=== PATIENT | male | born 1945 | race Caucasian/White ===

== ENCOUNTER 2016-05-18 21:02 | Emergency (ER) | payer OTHER, MEDICAID ==
--- NOTE | 2016-05-18 21:13 | EDPHY ---
H & P Time Seen by Provider: 05/18/16 21:11 HPI/ROS: Chief complaint. Fall HPI. 70-year-old male I with fall 2 days ago here by EMS. Now wants it to be checked out. The patient was apparently struggling with police during arrest in sustain an abrasion to the top of his head. He denies loss of consciousness neck pain any other injuries. He has been released from longterm. He does not have a place to go. We have offered to help him get into the half-way tonight however he refuses. The patient is not on blood thinners. ROS Constitutional. no fever/chills, no weakness Eyes. no problems with vision ENT. no sore throat, no nasal drainage Cardiovascular. no chest pain Respiratory. no shortness of breath, no cough Abdominal. no abdominal pain, no nausea/vomiting, no diarrhea . no problems urinating MS. no calf pain/swelling, no neck/back pain, no joint pain Skin. Abrasions to the top of his head Lymph. no swollen glands Neuro. no headache, no dizziness, no difficulty walking or with speech Past Medical/Surgical History: Parkinson's disease, orthostatic hypotension, syncope Social History: Single, daily smoker, no alcohol Smoking Status: Current some day smoker Physical Exam: General Appearance: Alert well-developed male no distress vital signs are stable Eyes: Pupils equal and round no pallor or injection. ENT, no hemotympanum or Casarez sign. No oral pharyngeal or dental trauma. No septal hematoma Respiratory: There are no retractions, lungs are clear to auscultation. Cardiovascular: Regular rate and rhythm. Gastrointestinal: Abdomen is soft and nontender, no masses, bowel sounds normal. Neurological: Awake and alert, sensory and motor exams grossly normal. Skin: Abrasion to the top of his head that does not appear to be infected Musculoskeletal: Neck is supple nontender. Extremities symmetrical, full range of motion. Psychiatric: Patient is oriented X 3, there is no agitation. Constitutional: Initial Vital Signs Temperature (C) 36.8 C 05/18/16 21:02 Heart Rate 86 05/18/16 21:02 Respiratory Rate 16 05/18/16 21:02 Blood Pressure 125/83 H 05/18/16 21:02 O2 Sat (%) 94 05/18/16 21:02 O2 Delivery Mode Room Air Allergies/Adverse Reactions: No Known Allergies Allergy (Verified 05/18/16 21:23) Home Medications: Medication Instructions Recorded Carbidopa/Levodopa 25/100Mg 2 tab PO QID 08/11/15 [Sinemet 25/100 MG (*)] Entacapone 05/18/16 Selegiline 05/18/16 Medical Decision Making ED Course/Re-evaluation: Patient remained stable though somewhat agitated. Again we have tried multiple times to encouraged the patient to let us get him to the homeless half-way. He refuses an wants to be discharged to the street. He become somewhat agitated does not want stay in the room. Security is watching the patient. He is placed on a detained or while he is in the emergency department. Differential Diagnosis: This appears to be a superficial abrasion. No evidence for concussion or closed head injury or skull fracture. He is not on blood thinners. He is alert oriented conversational. Departure - Departure Disposition: Home, Routine, Self-Care Clinical Impression: Parkinson disease, Aggressive behavior Abrasion head Qualifiers: Encounter type: initial encounter Qualified Code(s): S00.91XA - Abrasion of unspecified part of head, initial encounter Condition: Good Instructions: Abrasion (ED) Additional Instructions: Continue regular your regular medications. Return for worsening symptoms. Follow up with your regular physician on Saturday. Return over the weekend for any worsening symptoms. If you do not have a physician in [place] I will give you the name of a physician for follow-up Referrals: Patient,NotPresent [Unknown] - As per Instructions [facility],. [Clinic] - 2-3 days without fail
[2016-05-18 21:27] VITALS: RESP 16
[2016-05-18 23:52] VITALS: BP 114/74; PULSE 80; TEMP 97.9; O2SAT 96
== END 2016-05-18 23:51 | disposition home or self-care (01) ==
LOC: EDUNIT#
DX: S00.91XA Abrasion of unspecified part of head, initial encounter (principal); F91.9 Conduct disorder, unspecified; G20 Parkinson's disease; F17.200 Nicotine dependence, unspecified, uncomplicated; W18.39XA Other fall on same level, initial encounter

== ENCOUNTER 2016-11-16 22:22 | Inpatient (IN) | payer OTHER, MEDICAID ==
--- NOTE | 2016-11-16 22:25 | EDPHY ---
H & P Time Seen by Provider: 11/16/16 22:24 HPI/ROS: HPI The patient presents brought in by ambulance by paramedics on an M1 hold for inability to care for self. He he was released from care home just today and was accepted at [facility] for placement. However when he arrived at [facility], the staff there was unable to care for his medical needs, thus he was transferred here. As he is wheelchair bound with a history of Parkinson's and recently had an operation of his cervical spine at [facility]. He denies any acute complaints. REVIEW OF SYSTEMS Constitutional: No fever, no chills. Eyes: No discharge. ENT: No sore throat. Cardiovascular: No chest pain, no palpitations. Respiratory: No cough, no shortness of breath. Gastrointestinal: No abdominal pain, no vomiting. Genitourinary: No hematuria. Musculoskeletal: No back pain. Skin: No rashes. Neurological: No headache. PMHx: Parkinson's disease, postural hypotension, history of opiate use Soc Hx: Homeless, recently incarcerated, he lives at [facility] PHYSICAL General Appearance: Alert, no distress Eyes: Pupils equal and round no pallor or injection ENT, Mouth: Mucous membranes moist Respiratory: There are no retractions, lungs are clear to auscultation Cardiovascular: Regular rate and rhythm Gastrointestinal: Abdomen is soft and non-tender, no masses, bowel sounds normal Neurological: A&O, moves all extremities Skin: Warm and dry, no rashes Musculoskeletal: Neck is supple non tender Extremities: symmetrical, full range of motion Psychiatric: Patient is oriented X 3, there is no agitation Source: Patient, EMS Exam Limitations: No limitations Constitutional: Initial Vital Signs Temperature (C) 37.0 C 11/16/16 22:25 Heart Rate 92 11/16/16 22:25 Respiratory Rate 18 11/16/16 22:25 Blood Pressure 153/94 H 11/16/16 22:25 O2 Sat (%) 95 11/16/16 22:25 O2 Delivery Mode Room Air Allergies/Adverse Reactions: quetiapine [From Seroquel] Allergy (Verified 11/16/16 22:36) Home Medications: Medication Instructions Recorded Carbidopa/Levodopa 25/100Mg 2 tab PO QID 08/11/15 [Sinemet 25/100 MG (*)] Entacapone 05/18/16 Selegiline 05/18/16 Carbidopa/Levodopa 25/100Mg 1 tab PO TID 11/16/16 [Sinemet 25/100 MG (*)] Dicyclomine [Bentyl 10 MG (*)] 10 mg PO QID 11/16/16 Entacapone [Comtan 200 MG (RX)] 200 mg PO 11/16/16 FOLIC ACID 0.4 mg PO 11/16/16 Selegiline HCl 5 mg PO 11/16/16 Medical Decision Making Differential Diagnosis: This is a 71-year-old male with Parkinson's disease on multiple medications, recently released from care home to [facility] and now presents here because of difficulty taking care of him there. He is in a wheelchair and is on multiple medications. He has previously been at other nursing homes in the area. He denies any acute complaints. Differential diagnosis includes Parkinson's disease, alcohol intoxication, alcohol withdrawal. In the emergency department, the patient was monitored. Basic labs were checked and were all unremarkable. He will need to be placed, likely at a chcf facility. I discussed the case with Dr. Mclean who will admit the patient to the hospital. - Data Points Laboratory Results: Laboratory Results 11/16/16 23:56 11/16/16 23:56 11/16/16 11/16/16 11/16/16 23:56 23:56 23:40 WBC 9.37 10^3/uL 10^3/uL (3.80-9.50) RBC 4.50 10^6/uL 10^6/uL (4.40-6.38) Hgb 13.7 g/dL g/dL (13.7-17.5) Hct 42.9 % % (40.0-51.0) MCV 95.3 fL fL (81.5-99.8) MCH 30.4 pg pg (27.9-34.1) MCHC 31.9 g/dL L g/dL (32.4-36.7) RDW 13.9 % % (11.5-15.2) Plt Count 182 10^3/uL 10^3/uL (150-400) MPV 9.9 fL fL (8.7-11.7) Neut % (Auto) 68.5 % % (39.3-74.2) Lymph % (Auto) 23.5 % % (15.0-45.0) [place] % (Auto) 6.4 % % (4.5-13.0) Eos % (Auto) 1.1 % % (0.6-7.6) Baso % (Auto) 0.2 % L % (0.3-1.7) Nucleat RBC Rel Count 0.0 % % (0.0-0.2) Absolute Neuts (auto) 6.42 10^3/uL 10^3/uL (1.70-6.50) Absolute Lymphs (auto) 2.20 10^3/uL 10^3/uL (1.00-3.00) Absolute Monos (auto) 0.60 10^3/uL 10^3/uL (0.30-0.80) Absolute Eos (auto) 0.10 10^3/uL 10^3/uL (0.03-0.40) Absolute Basos (auto) 0.02 10^3/uL 10^3/uL (0.02-0.10) Absolute Nucleated RBC 0.00 10^3/uL 10^3/uL (0-0.01) Immature Gran % 0.3 % % (0.0-1.1) Immature Gran # 0.03 10^3/uL 10^3/uL (0.00-0.10) Sodium 144 mEq/L mEq/L (134-144) Potassium 5.2 mEq/L mEq/L (3.5-5.2) Chloride 106 mEq/L mEq/L (97-110) Carbon Dioxide 26 mEq/l mEq/l (22-31) Anion Gap 12 mEq/L mEq/L (8-16) BUN 22 mg/dL mg/dL (7-23) Creatinine 0.8 mg/dL mg/dL (0.7-1.3) Estimated GFR > 60 Glucose 110 mg/dL H mg/dL (70-100) Calcium 9.8 mg/dL mg/dL (8.5-10.4) Total Bilirubin 1.0 mg/dL mg/dL (0.1-1.4) AST 30 IU/L IU/L (17-59) ALT 10 IU/L L IU/L (21-72) Alkaline Phosphatase 43 IU/L IU/L (38-126) Total Protein 8.0 g/dL g/dL (6.3-8.2) Albumin 4.2 g/dL g/dL (3.5-5.0) Specimen Hemolysis 141 Urine Color YELLOW Urine Appearance CLEAR Urine pH 6.0 (5.0-7.5) Ur Specific [place] 1.026 (1.002-1.030) Urine Protein NEGATIVE (NEGATIVE) Urine Ketones NEGATIVE (NEGATIVE) Urine Blood NEGATIVE (NEGATIVE) Urine Nitrate NEGATIVE (NEGATIVE) Urine Bilirubin NEGATIVE (NEGATIVE) Urine Urobilinogen NEGATIVE EU EU (0.2-1.0) Ur Leukocyte Esterase NEGATIVE (NEGATIVE) Urine Glucose NEGATIVE (NEGATIVE) Urine Opiates Screen Urine Barbiturates Ur Phencyclidine Scrn Ur Amphetamine Screen U Benzodiazepines Scrn Urine Cocaine Screen U Marijuana (THC) Screen Ethyl Alcohol < 10 mg/dL mg/dL (0-10) 11/16/16 23:40 WBC RBC Hgb Hct MCV MCH MCHC RDW Plt Count MPV Neut % (Auto) Lymph % (Auto) [place] % (Auto) Eos % (Auto) Baso % (Auto) Nucleat RBC Rel Count Absolute Neuts (auto) Absolute Lymphs (auto) Absolute Monos (auto) Absolute Eos (auto) Absolute Basos (auto) Absolute Nucleated RBC Immature Gran % Immature Gran # Sodium Potassium Chloride Carbon Dioxide Anion Gap BUN Creatinine Estimated GFR Glucose Calcium Total Bilirubin AST ALT Alkaline Phosphatase Total Protein Albumin Specimen Hemolysis Urine Color Urine Appearance Urine pH Ur Specific [place] Urine Protein Urine Ketones Urine Blood Urine Nitrate Urine Bilirubin Urine Urobilinogen Ur Leukocyte Esterase Urine Glucose Urine Opiates Screen NEGATIVE (NEGATIVE) Urine Barbiturates NEGATIVE (NEGATIVE) Ur Phencyclidine Scrn NEGATIVE (NEGATIVE) Ur Amphetamine Screen NEGATIVE (NEGATIVE) U Benzodiazepines Scrn NEGATIVE (NEGATIVE) Urine Cocaine Screen NEGATIVE (NEGATIVE) U Marijuana (THC) Screen NEGATIVE (NEGATIVE) Ethyl Alcohol Medications Given: Carbidopa/Levodopa (Sinemet) 1.5 tab PO TID MARYJO Stop: 05/16/17 08:59 Last Admin: 11/16/16 23:02 Dose: 1.5 tab Entacapone (Comtan) 200 mg PO TID MARYJO Stop: 05/16/17 08:59 Last Admin: 11/16/16 23:02 Dose: 200 mg Discontinued Medications Dicyclomine HCl (Bentyl) 10 mg PO EDNOW ONE Stop: 11/16/16 23:00 Last Admin: 11/16/16 23:02 Dose: 10 mg Folic Acid (Folic Acid) 1 mg PO EDNOW ONE Stop: 11/16/16 23:00 Last Admin: 11/16/16 23:03 Dose: 1 mg Departure - Departure Disposition: [facility] Inpatient Acute Clinical Impression: Parkinson disease Condition: Fair
[2016-11-16] MEDS ORDERED: FOLIC ACID 1 MG TAB PO ONE (22:59)
[2016-11-16] MEDS ORDERED: DICYCLOMINE 10 MG CAP PO ONE (22:59)
[2016-11-16] MEDS: ENTACAPONE 200 MG TAB PO SCH (23:02)
[2016-11-17 00:04] LABS: % IMMATURE GRANULYOCYTES 0.3 % (0.0-1.1); ABSOLUTE IMMATURE GRANULOCYTES 0.03 10^3/uL (0.00-0.10); ADD DIFF? NO; ADD MORPH? NO; ADD SCAN? NO; ATYPICAL LYMPHOCYTE FLAG 0 (0-99); FRAGMENT RBC FLAG 0 (0-99); HEMATOCRIT 42.9 % (40.0-51.0); HEMOGLOBIN 13.7 g/dL (13.7-17.5); LEFT SHIFT FLG 0 (0-99); LIPEMIA HEMOLYSIS FLAG 80 (0-99); MEAN CELL HEMOGLOBIN 30.4 pg (27.9-34.1); MEAN CELL HEMOGLOBIN CONCENTR. 31.9 g/dL (32.4-36.7); MEAN CELL VOLUME 95.3 fL (81.5-99.8); MEAN PLATELET VOLUME 9.9 fL (8.7-11.7); PLATELET CLUMPS FLAG 0 (0-99); PLATELET COUNT 182 10^3/uL (150-400); RED CELL DISTRIBUTION WIDTH 13.9 % (11.5-15.2)
[2016-11-17 00:21] LABS: ALANINE AMINOTRANSFERASE 10 IU/L (21-72); ALBUMIN 4.2 g/dL (3.5-5.0); ALKALINE PHOSPHATASE 43 IU/L (38-126); ANION GAP 12 mEq/L (8-16); ASPARTATE AMINOTRANSFERASE 30 IU/L (17-59); CALCIUM 9.8 mg/dL (8.5-10.4); CARBON DIOXIDE 26 mEq/l (22-31); CHLORIDE 106 mEq/L (97-110); CREATININE 0.8 mg/dL (0.7-1.3); ETHANOL SERUM < 10 mg/dL (0-10); GLOMERULAR FILTRATION RATE > 60; GLUCOSE 110 mg/dL (70-100); POTASSIUM 5.2 mEq/L (3.5-5.2); SODIUM 144 mEq/L (134-144); SPECIMEN HEMOLYSIS 141
[2016-11-17 00:48] LABS: COLOR YELLOW; LEUKOCYTE ESTERASE,URINE NEGATIVE (NEGATIVE); NITRITE,URINE NEGATIVE (NEGATIVE)
[2016-11-17] MEDS ORDERED: ONDANSETRON DISINTEGRATING 4 MG TAB PO PRN (05:04)
[2016-11-17] MEDS ORDERED: PROMETHAZINE HCL 25 MG/ML INJ IVP PRN (05:04)
[2016-11-17] MEDS ORDERED: ONDANSETRON 4 MG/2 ML VIAL IVP PRN (05:04)
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
[2016-11-17] MEDS: DICYCLOMINE 10 MG CAP PO SCH ×4 (05:49→21:56)
[2016-11-17] MEDS ORDERED: CARBIDOPA/LEVODOPA 25 MG/100 MG TAB PO SCH ×2 (09:00)
[2016-11-17] MEDS: ENOXAPARIN 40 MG/0.4 ML SYR SC SCH ×2 (09:54→09:58)
[2016-11-17] MEDS: ENTACAPONE 200 MG TAB PO SCH ×3 (09:54→21:56)
[2016-11-17] MEDS: CARBIDOPA/LEVODOPA 25 MG/100 MG TAB PO SCH ×2 (16:03→18:21)
[2016-11-17] MEDS: SELEGILINE HCL 5 MG CAP PO SCH (16:07)
[2016-11-17] MEDS: QUEtiapine FUMARATE 25 MG TAB PO SCH (16:09)
--- NOTE | 2016-11-17 16:38 | HOSPPROG ---
Hospitalist Progress Note Assessment/Plan: DIAGNOSES: -Personality disorder, with intermittent aggressive behaviors ( diagnosis based on multiple previous psychiatric evaluations done elsewhere ) -advanced Parkinson's disease -orthostatic hypotension likely related Parkinson's disease -Chronic pain, probably related to Parkinson's disease -Inability to maintain a place of living complicated by difficulty caring for himself This patient's situation is quite difficult from a social standpoint as he is not really able to care for himself for well but has not been able to maintain a living situation in nursing facilities or care homes. I have spoken to our Case Management group about his situation and they are going to begin to look into options for how we can try and set him up for better success that he has had recently as outlined by Dr. Collado's admission note today SUBJECTIVE: Says he feels okay, he is bothered by his tremor but it is no worse than usual No other symptoms of acute illness OBJECTIVE Vitals reviewed: stable without fever Exam: alert oriented tremor and hypophonia typical of parkinsonism are present and he is really quite debilitated by his Parkinson's in terms of mobility skin warm dry color ok resps not labored lungs clear BSs heart regular abd soft nondistended nontender, bowel sounds present limbs warm, no edema iv site ok Objective: Vital Signs Temp Pulse Resp BP Pulse Ox 36.9 C 85 18 130/81 H 94 11/17/16 15:44 11/17/16 15:44 11/17/16 15:44 11/17/16 15:44 11/17/16 15:44 ICD10 Worksheet Patient Problems: Problems Problem Status Onset Parkinson disease Acute Aggressive behavior Acute
[2016-11-17] MEDS: VENLAFAXINE XR 150 MG CAP PO SCH (21:55)
[2016-11-18] MEDS: CARBIDOPA/LEVODOPA 25 MG/100 MG TAB PO SCH ×4 (06:00→20:31)
[2016-11-18] MEDS: ENTACAPONE 200 MG TAB PO SCH ×3 (06:08→20:38)
[2016-11-18] MEDS: ACETAMINOPHEN 325 MG TAB PO PRN ×2 (06:10→20:33)
[2016-11-18] MEDS: oxyCODONE IR 5 MG TAB PO PRN ×3 (06:11→20:33)
[2016-11-18] MEDS: SELEGILINE HCL 5 MG CAP PO SCH (09:37)
[2016-11-18] MEDS: DICYCLOMINE 10 MG CAP PO SCH ×3 (09:37→20:38)
[2016-11-18] MEDS: FOLIC ACID 1 MG TAB PO SCH (09:37)
[2016-11-18] MEDS: VENLAFAXINE XR 75 MG CAP PO SCH (09:37)
[2016-11-18] MEDS: QUEtiapine FUMARATE 25 MG TAB PO SCH (09:38)
[2016-11-18] MEDS: ENOXAPARIN 40 MG/0.4 ML SYR SC SCH (09:40)
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
--- NOTE | 2016-11-18 16:06 | HOSPPROG ---
Hospitalist Progress Note Assessment/Plan: DIAGNOSES: -Personality disorder, with intermittent aggressive behaviors ( diagnosis based on multiple previous psychiatric evaluations done elsewhere ) -advanced Parkinson's disease -orthostatic hypotension likely related Parkinson's disease -decubitus ulcer, POA, (he is currently not accepting nursing care for this ulcer here) -Chronic pain, probably related to Parkinson's disease -Inability to maintain a place of living complicated by difficulty caring for himself This patient's situation is quite difficult from a social standpoint as he is not really able to care for himself for well but has not been able to maintain a living situation in nursing facilities or care homes. I have spoken to our Case Management group about his situation and they are going to begin to look into options for how we can try and set him up for better success that he has had recently as outlined by Dr. Collado's admission note today I have asked pharamcy to try to find the medication/dose for his parkinsons med SUBJECTIVE: Overall feels ok but states he normally takes a long acting carbi/levodopa at HS which was not on his reconciled list at admission, and says tremor not as well controlled due to this OBJECTIVE Vitals reviewed: stable without fever Exam: alert oriented tremor and hypophonia typical of parkinsonism are present and he is really quite debilitated by his Parkinson's in terms of mobility skin warm dry color ok resps not labored lungs clear BSs heart regular abd soft nondistended nontender, bowel sounds present limbs warm, no edema iv site ok Objective: Vital Signs Temp Pulse Resp BP Pulse Ox 36.6 C 85 16 103/63 94 11/18/16 15:42 11/18/16 15:42 11/18/16 15:42 11/18/16 15:42 11/18/16 15:42 11/17/16 11/18/16 11/19/16 06:59 06:59 06:59 Intake Total 550 Output Total 500 100 Balance 50 -100 ICD10 Worksheet Patient Problems: Problems Problem Status Onset Parkinson disease Acute Aggressive behavior Acute
[2016-11-18] MEDS: VENLAFAXINE XR 150 MG CAP PO SCH (20:33)
[2016-11-18] MEDS: CARBIDOPA/LEVO CR 50 MG/200 MG TAB PO SCH (22:59)
[2016-11-19] MEDS: ACETAMINOPHEN 325 MG TAB PO PRN ×3 (06:15→18:01)
[2016-11-19] MEDS: CARBIDOPA/LEVODOPA 25 MG/100 MG TAB PO SCH ×4 (06:16→19:45)
[2016-11-19] MEDS: oxyCODONE IR 5 MG TAB PO PRN ×4 (06:16→21:04)
[2016-11-19] MEDS: ENTACAPONE 200 MG TAB PO SCH ×3 (06:16→21:04)
[2016-11-19] MEDS: DICYCLOMINE 10 MG CAP PO SCH ×3 (09:00→21:03)
[2016-11-19] MEDS: QUEtiapine FUMARATE 25 MG TAB PO SCH ×2 (09:00→09:03)
[2016-11-19] MEDS: FOLIC ACID 1 MG TAB PO SCH (09:00)
[2016-11-19] MEDS: VENLAFAXINE XR 75 MG CAP PO SCH ×4 (09:00→09:06)
[2016-11-19] MEDS: SELEGILINE HCL 5 MG CAP PO SCH (09:00)
[2016-11-19] MEDS: ENOXAPARIN 40 MG/0.4 ML SYR SC SCH (09:07)
--- NOTE | 2016-11-19 18:29 | HOSPPROG ---
Hospitalist Progress Note Assessment/Plan: DIAGNOSES: -Personality disorder, with intermittent aggressive behaviors ( diagnosis based on multiple previous psychiatric evaluations done elsewhere ) -we have had no sign of any agitated or aggressive behavior here. My guess is that as his speech is very hard to understand, staff elsewhere get frustrated leading to him getting frustrated and he is not able to manage the frustration?? -advanced Parkinson's disease -orthostatic hypotension likely related Parkinson's disease -decubitus ulcer, POA, (he is currently not accepting nursing care for this ulcer here) -Chronic pain, probably related to Parkinson's disease -Inability to maintain a place of living complicated by difficulty caring for himself This patient's situation is quite difficult from a social standpoint as he is not really able to care for himself for well but has not been able to maintain a living situation in nursing facilities or care homes. I have spoken to our Case Management group about his situation and they are going to begin to look into options for how we can try and set him up for better success that he has had recently as outlined by Dr. Power's admission note today SUBJECTIVE: Feels well today, no pain or other acute symptoms OBJECTIVE Vitals reviewed: stable without fever Exam: alert oriented tremor and hypophonia typical of parkinsonism are present and he is really quite debilitated by his Parkinson's in terms of mobility skin warm dry color ok resps not labored lungs clear BSs heart regular abd soft nondistended nontender, bowel sounds present limbs warm, no edema iv site ok Objective: Vital Signs Temp Pulse Resp BP Pulse Ox 36.3 C 72 14 117/71 93 11/19/16 16:00 11/19/16 16:00 11/19/16 16:00 11/19/16 16:00 11/19/16 16:00 11/18/16 11/19/16 11/20/16 06:59 06:59 06:59 Intake Total 550 500 250 Output Total 500 800 350 Balance 50 -300 -100 ICD10 Worksheet Patient Problems: Problems Problem Status Onset Parkinson disease Acute Aggressive behavior Acute
[2016-11-19] MEDS: VENLAFAXINE XR 150 MG CAP PO SCH (21:03)
[2016-11-19] MEDS: CARBIDOPA/LEVO CR 50 MG/200 MG TAB PO SCH (22:33)
[2016-11-20] MEDS: oxyCODONE IR 5 MG TAB PO PRN ×6 (02:49→22:10)
[2016-11-20] MEDS: ACETAMINOPHEN 325 MG TAB PO PRN (02:53)
[2016-11-20] MEDS: QUEtiapine FUMARATE 25 MG TAB PO SCH (07:27)
[2016-11-20] MEDS: ENTACAPONE 200 MG TAB PO SCH ×3 (07:27→22:03)
[2016-11-20] MEDS: CARBIDOPA/LEVODOPA 25 MG/100 MG TAB PO SCH ×4 (07:28→19:01)
[2016-11-20] MEDS: VENLAFAXINE XR 75 MG CAP PO SCH ×2 (07:28→07:30)
[2016-11-20] MEDS: SELEGILINE HCL 5 MG CAP PO SCH (07:29)
[2016-11-20] MEDS: FOLIC ACID 1 MG TAB PO SCH (07:29)
[2016-11-20] MEDS: DICYCLOMINE 10 MG CAP PO SCH ×3 (07:30→22:02)
[2016-11-20] MEDS: ENOXAPARIN 40 MG/0.4 ML SYR SC SCH (07:30)
--- NOTE | 2016-11-20 11:56 | ASMTCMCOM ---
CM Note CM Note Notes: Added information re: patient's aggressive behaviors to the [facility] for review by BRENDEN Harper. Noted we have not seen the behaviors here and the trigger for them may be frustration with communication. JALEESA is pursuing SNF placement at this time. Several referrals have been made. Awaiting response from facilities. JALEESA w/f. Date Signed: 11/20/2016 11:12 AM Electronically Signed By:Porsha Harris
--- NOTE | 2016-11-20 12:24 | HOSPPROG ---
Hospitalist Progress Note Assessment/Plan: -Personality disorder, with intermittent aggressive behaviors ( diagnosis based on multiple previous psychiatric evaluations done elsewhere ) -we have had no sign of any agitated or aggressive behavior here. My guess is that as his speech is very hard to understand, staff elsewhere get frustrated leading to him getting frustrated and he is not able to manage the frustration?? -advanced Parkinson's disease -orthostatic hypotension likely related Parkinson's disease -decubitus ulcer, POA, (he is currently not accepting nursing care for this ulcer here) -Chronic pain, probably related to Parkinson's disease -Inability to maintain a place of living complicated by difficulty caring for himself This patient's situation is quite difficult from a social standpoint as he is not really able to care for himself for well but has not been able to maintain a living situation in nursing facilities or care homes. I have spoken to our Case Management group about his situation and they are going to begin to look into options for how we can try and set him up for better success that he has had recently as outlined by Dr. Power's admission note today SUBJECTIVE: Feels well today, no pain or other acute symptoms OBJECTIVE Vitals reviewed: stable without fever Subjective: No complaints. No chest pain, SOB. Patient slow to respond yet responds appropriately Objective: Vital Signs Temp Pulse Resp BP Pulse Ox 36.4 C 87 14 114/75 93 11/20/16 07:37 11/20/16 07:37 11/20/16 07:37 11/20/16 07:37 11/20/16 07:37 11/19/16 11/20/16 11/21/16 05:59 05:59 05:59 Intake Total 500 1050 200 Output Total 800 650 175 Balance -300 400 25 - Time Spent With Patient Time Spent with Patient: greater than 35 minutes Time Spent with Patient: Greater than 35 minutes spent on this patients care, greater than 50% of time spent counseling, educating, and coordinating care regarding the above mentioned plan. - Pending Discharge Pending Discharge Within 24 Hours: No Pending Discharge Within 48 Hours: No - Physical Exam Constitutional: no apparent distress, chronically ill appearing Eyes: PERRL, anicteric sclera Ears, Nose, Mouth, Throat: moist mucous membranes, hearing normal Cardiovascular: regular rate and rhythym, systolic murmur Respiratory: no respiratory distress, no rales or rhonchi, clear to auscultation Gastrointestinal: normoactive bowel sounds, soft, non-tender abdomen, no palpable masses Genitourinary: no bladder fullness Skin: warm Musculoskeletal: generalized weakness Neurologic: CN II-XII Intact Psychiatric: not encephalopathic, depressed, flat affect ICD10 Worksheet Patient Problems: Problems Problem Status Onset Parkinson disease Acute Aggressive behavior Acute
[2016-11-20] MEDS: VENLAFAXINE XR 150 MG CAP PO SCH (22:00)
[2016-11-20] MEDS: CARBIDOPA/LEVO CR 50 MG/200 MG TAB PO SCH (22:01)
[2016-11-21] MEDS: oxyCODONE IR 5 MG TAB PO PRN ×5 (04:37→19:18)
[2016-11-21] MEDS: CARBIDOPA/LEVODOPA 25 MG/100 MG TAB PO SCH ×4 (06:05→19:17)
[2016-11-21] MEDS: ENTACAPONE 200 MG TAB PO SCH ×3 (06:05→23:13)
[2016-11-21] MEDS: VENLAFAXINE XR 75 MG CAP PO SCH (07:52)
[2016-11-21] MEDS: SELEGILINE HCL 5 MG CAP PO SCH (07:52)
[2016-11-21] MEDS: DICYCLOMINE 10 MG CAP PO SCH ×3 (07:52→23:13)
[2016-11-21] MEDS: FOLIC ACID 1 MG TAB PO SCH (07:53)
[2016-11-21] MEDS: ENOXAPARIN 40 MG/0.4 ML SYR SC SCH (07:53)
[2016-11-21] MEDS: QUEtiapine FUMARATE 25 MG TAB PO SCH ×2 (07:53→16:53)
[2016-11-21] MEDS: ACETAMINOPHEN 325 MG TAB PO PRN (12:20)
--- NOTE | 2016-11-21 14:58 | HOSPPROG ---
Hospitalist Progress Note Assessment/Plan: 71-year-old male with Parkinson's disease, personality disorder and a history of aggressive behavior. -today the patient became aggressive and agitated though I was able to speak with him and calm him down. He is difficult to understand as he speaks with a [place] accent and he has his motor disorder. Despite that I was able to calm him by simply listen to many in fact was agitated because he wanted to catch it checked. He in fact produce to check from the [facility]'s Office in the amount of 2074 dollars. Check was dated 2016. Thus the gentleman's fax are true he simply has a difficult time expressing himself and gets frustrated with other people's frustration. -Parkinson's disease: Gentleman's medication regime would indicate significant doses of levodopa and carbidopa. I am going to consult Neurology, Dr. Dewayne Robertson, to review these medications and advise. -depression and antidepressive medications: He is taking significant antidepressive medications of Effexor along with Siligine. There may be drug and drug interaction here worsening the gentleman's ability to communicate and manage his own behavior. -chronic pain: He is on a rational dose of medication for control of his pain. My unclear the source of it. -decubitus ulceration of the sacrum: This was present on admission and he is refusing to allow us to treated. Is currently covered with a bandage. Will change the bandage every 2-3 days. -disposition: This is a very difficult social situation as he has alienated himself from any of the SNF and rehab facilities in the area. We will seek placement for this gentleman and see to clarify and perhaps change some of his psychiatric and parkinsonian medication. Perhaps this will improve the gentleman's ability to manage his own emotions and behavior. Time: 45 minutes. Case has been discussed with Neurology and Dr. Dewayne Robertson. We await his consultation Subjective: Became agitated and required the assistance of security. I was able to speak with him and though difficult to understand at times he expressed frustration that he wanted to ridley a check and no one would help. He did in fact have a check for > $2,000 stuffed in his shirt from the [facility]'s Office. Objective: Vital Signs Temp Pulse Resp BP Pulse Ox 36.9 C 84 14 97/62 L 93 11/21/16 08:00 11/21/16 08:00 11/21/16 08:00 11/21/16 08:00 11/21/16 08:00 11/20/16 11/21/16 11/22/16 05:59 05:59 05:59 Intake Total 1050 200 Output Total 650 875 Balance 400 -675 - Time Spent With Patient Time Spent with Patient: greater than 35 minutes Time Spent with Patient: Greater than 35 minutes spent on this patients care, greater than 50% of time spent counseling, educating, and coordinating care regarding the above mentioned plan. - Pending Discharge Pending Discharge Within 24 Hours: No Pending Discharge Within 48 Hours: No - Physical Exam Constitutional: chronically ill appearing, other (Agitated at times but can be) Eyes: PERRL (Calmed diffuse it lessened with a), anicteric sclera Ears, Nose, Mouth, Throat: moist mucous membranes, hearing normal, other (His speech is hard to understand but there are no oral lesions.) Cardiovascular: regular rate and rhythym, systolic murmur, JVD (JVD is not elevated), edema (No edema is present) Respiratory: no respiratory distress, no rales or rhonchi, clear to auscultation Gastrointestinal: normoactive bowel sounds, soft, non-tender abdomen, no palpable masses Genitourinary: no bladder fullness Skin: warm Musculoskeletal: generalized weakness Neurologic: CN II-XII Intact (Difficult to assess his orientation but I believe he is oriented x3. His speech is difficult to understand as he is from [place] speaks with an accent speaks softly and he has a motion disorder secondary to his Parkinson's disease. Though I could, the gentleman a could not get him to cooperate with a gait evaluation. He does have a resting tremor most noted in his right arm but the left) Psychiatric: anxious (He is anxious and agitated but he can be calmed), agitated , other ICD10 Worksheet Patient Problems: Problems Problem Status Onset Parkinson disease Acute Aggressive behavior Acute
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
--- NOTE | 2016-11-21 17:17 | ASMTCMCOM ---
CM Note CM Note Notes: [facility] has declined patient. [facility] has come back approved and is in chart. Per financial se rvices, patient has 30 days of acute rehab medicare, which are copay days. Because Medicaid kicks in, co-pay for patient is $10.00/day for the patient. 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 [facility] and [facility] both have declined patient. We are still searching for a facility that can accept patient. CM will follow. Date Signed: 11/20/2016 05:14 PM Electronically Signed By:Porsha Harris
[2016-11-21] MEDS: VENLAFAXINE XR 150 MG CAP PO SCH ×2 (19:18→19:31)
[2016-11-21] MEDS: CARBIDOPA/LEVO CR 50 MG/200 MG TAB PO SCH (23:13)
[2016-11-22] MEDS: ENTACAPONE 200 MG TAB PO SCH ×4 (07:28→22:46)
[2016-11-22] MEDS: CARBIDOPA/LEVODOPA 25 MG/100 MG TAB PO SCH ×4 (07:37→19:59)
[2016-11-22] MEDS: ENOXAPARIN 40 MG/0.4 ML SYR SC SCH (07:37)
[2016-11-22] MEDS: DICYCLOMINE 10 MG CAP PO SCH ×3 (07:40→22:46)
[2016-11-22] MEDS: FOLIC ACID 1 MG TAB PO SCH (07:41)
[2016-11-22] MEDS: VENLAFAXINE XR 75 MG CAP PO SCH (07:41)
[2016-11-22] MEDS: QUEtiapine FUMARATE 25 MG TAB PO SCH (09:13)
[2016-11-22] MEDS: SELEGILINE HCL 5 MG CAP PO SCH (09:14)
[2016-11-22] MEDS ORDERED: LACTULOSE 20 GM/30 ML UDCUP PO PRN (09:38)
[2016-11-22] MEDS ORDERED: MAGNESIUM HYDROXIDE 30 ML UDCUP PO PRN (09:38)
[2016-11-22] MEDS ORDERED: POLYETHYLENE GLYCOL 3350 17 GM PKT PO PRN (09:38)
[2016-11-22] MEDS ORDERED: BISACODYL 10 MG SUPP PR PRN (09:38)
--- NOTE | 2016-11-22 10:55 | GCON ---
[f rep st] CONSULTATION NEUROLOGIC CONSULTATION HISTORY OF PRESENT ILLNESS: He is a 71-year-old gentleman whom I am asked to see in neurologic cons ultation regarding Parkinson disease. He is able to tell me that he was diagnosed about 15 years ag o with Parkinson disease that started with left upper extremity tremor and has remained left-sided p redominant over the years. He has most recently been under the care of Dr. Mila Talley at the [facility], but sometimes it has been challenging for him to get there. Over the years, there have been adjustments in medication, and he says his current regimen works fairly well. Taurus castillo, when he gets up he can be a little slow to get going and sometimes has freezing for 15 or 20 seconds when he is walking, particularly when he is about to make a turn. He says that gets better during the day usually. When he takes his regimen of Sinemet 25/100 mg, he typically takes 1-1/2 ta blets at 7 a.m., 11 a.m., 3 p.m. and 7 p.m. He takes this with entacapone 200 mg 3 times per day, b ut that is usually at 0700, 1500, and 2200. He uses Sinemet CR 50/200 mg in the evening, which gene rally helps him maintain mobility later in the evening. After about 45 minutes, he experiences some turning on and some peak-dose dyskinesias that last about 15 minutes, and then he is stable for 3-4 hours usually. He denies dystonias. When I ask him about the Seroquel, it is a little unclear why he was ever put on that, but I presume for some restlessness or agitation. He denies regularly yue lucinating, but he says he is not sure that he might sometimes hallucinate. He also takes selegilin e 5 mg daily. The patient has no other neurologist actively treating him and is looking for care and hoping that w e can assist him here in the [place] area. There have been challenges when he has been at various f acilities, apparently related to getting agitated and sometimes verbally aggressive or physically ag gressive, and this has led even to being arrested. All of the details of that are not clear, but it sounds as if he gets very frustrated when individuals cannot consistently get him his medication on time. He is denying specific memory loss. In fact, he is very well versed on his condition and ab le to talk about it appropriately and accurately, even the details of managing Parkinson disease and associated complications. He is not currently feeling agitated. When he was admitted to the hospital on November 17, we docum ented history of chronic pain. He has had old fracture in the left leg and left hand and that has l eft him with some permanent disability. Also has a history of cervical fusion. FAMILY HISTORY: Negative for any movement disorders. SOCIAL HISTORY: He apparently rarely consumes alcohol. He has some cigarettes each day usually. Danny weiss has at times been homeless or in nursing facilities. 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 There is mention that he has had some orthostatic hypotension. PHYSICAL EXAMINATION: VITAL SIGNS: Blood pressure is 124/76, temperature 37.1, pulse of 90, respir ations 16. GENERAL: He is well developed, sitting up in his wheelchair in no acute distress and se lf-propelling fairly well. He is alert and oriented and able to elaborate in a logical fashion abou t his condition, although he tends to speak a little bit quickly, and it can be a little bit slurred if he goes too fast. 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 The patient has minimal bradykinesia right now. There is no significant tremor . He does not have much increased tone. He is able to get up out of his chair independently and ma intain his balance but is a little bit unsteady. Postural reflexes are diminished. His gait is victorino racterized by shortened stride length, but he is not shuffling, and he does swing his arms a bit. Danny weiss maintains his balance as he walks and is able to turn but prefers sometimes to take a few small st eps and then touch objects for support. IMPRESSION: The patient has moderate Parkinson disease with motor fluctuations, still responsive to dopamine. He has had good care at the [facility], but that is becoming very impractica l for him. I told him I am perfectly willing to work with him through our clinic, and I gave him my contact information. He can follow up with us in about a month, once he is out of the hospital her e. He does not have dementia. There may be times when he gets agitated, and Seroquel could be reas onable for that, although there is very limited evidence that it is actually effective. He is not a ctively hallucinating now. I would not stop the drug at this point, but that is something we might consider in the future. With regard to his risk of endangering other individuals, all I can say is that he would likely do well with a lot of understanding and very good focus on maintaining an appro priate medication schedule for him. Parkinson's patients are at high risk of frustration and limite d motor capabilities if they do not get their dopamine on the right schedule, so I understand why he would get agitated. I also understand the practical situations in many nursing facilities, but brenda mo education on this topic is critical, and hopefully he could find a facility if he is not able to l bruna with his apparent girlfriend. I would not change his current regimen of medication. He will fo llow up with me once he is discharged, and if that is not possible, he will certainly need ongoing c are with a neurologist wherever he winds up. TOTAL UNIT TIME: 75 minutes. /[id number]/MODL
--- NOTE | 2016-11-22 14:22 | HOSPPROG ---
Hospitalist Progress Note Assessment/Plan: 71-year-old male with Parkinson's disease, personality disorder and a history of aggressive behavior. -Today the patient was not agitated easy to interact with an converse and very cooperative. Reviewing the Neurology consultation note I concur that the gentleman does not have dementia as he is quite clear in his needs, his problems , and the difficulties he has had. He has a very bright gentleman who clearly becomes frustrated when he does not get his medication on time because he does be calmed quite motor impaired when he does not receive his dopamine medication on a regular schedule. Please review the Neurology consult for the specifics. I spoke with Dr. Robertson personally and will be coordinating care with him. -Parkinson's disease: Gentleman's medication regime would indicate significant doses of levodopa and carbidopa. Neurology agrees that his current medications are appropriate and no changes will be made. The problem with the medication is that it must be given on in a very timely manner or the gentleman has Bradykinesis. The patient is very aware of this and becomes frustrated when he does not get his medication on time -depression and antidepressive medications: He is taking significant antidepressive medications of Effexor along with Siligine. No changes will be made to this medication -chronic pain: He is on a rational dose of medication for control of his pain. he has a history of a left-sided arm and leg fracture in this is a source of his chronic pain. -decubitus ulceration of the sacrum: This was present on admission and he is refusing to allow us to treated. Is currently covered with a bandage. Will change the bandage every 2-3 days. -disposition: This is a very difficult social situation as he has alienated himself from any of the SNF and rehab facilities in the area. We will seek placement for this gentleman and see to clarify and perhaps change some of his psychiatric and parkinsonian medication. Perhaps this will improve the gentleman's ability to manage his own emotions and behavior. Time: 45 minutes. Case has been discussed with Neurology and Dr. Dewayne Robertson. Subjective: Patient is alert oriented x3 lucid and cooperative. The check the gentleman has from the [facility]'s office is ridley that he had on hand when he was placed in [facility] briefly. They paid back is ridley with a check and he wants to catch the check. He has no other complaints. Objective: Vital Signs Temp Pulse Resp BP Pulse Ox 37.1 C 94 16 124/76 H 92 11/22/16 07:34 11/22/16 07:34 11/22/16 07:34 11/22/16 07:34 11/22/16 07:34 11/21/16 11/22/16 11/23/16 05:59 05:59 05:59 Intake Total 200 150 Output Total 875 200 Balance -675 -50 - Time Spent With Patient Time Spent with Patient: greater than 35 minutes Time Spent with Patient: Greater than 35 minutes spent on this patients care, greater than 50% of time spent counseling, educating, and coordinating care regarding the above mentioned plan. - Pending Discharge Pending Discharge Within 24 Hours: No Pending Discharge Within 48 Hours: Yes Pending Discharge Date: 11/24/16 Pending Discharge Time: 11:00 - Physical Exam Constitutional: no apparent distress, chronically ill appearing Eyes: PERRL, anicteric sclera Ears, Nose, Mouth, Throat: moist mucous membranes, hearing normal Cardiovascular: regular rate and rhythym, systolic murmur, JVD ( Not elevated) , edema ( no edema) Respiratory: no respiratory distress, no rales or rhonchi, clear to auscultation Gastrointestinal: normoactive bowel sounds, soft, non-tender abdomen, other ( very thin) Genitourinary: no bladder fullness Skin: warm Musculoskeletal: generalized weakness Neurologic: AAOx3, CN II-XII Intact Psychiatric: interacting appropriately ICD10 Worksheet Patient Problems: Problems Problem Status Onset Parkinson disease Acute Aggressive behavior Acute
--- NOTE | 2016-11-22 15:56 | ASMTCMCOM ---
CM Note CM Note Notes: Sent email msg to Director of CM and [employer] of [facility] letting them know about challenges of placing Pt. Await meeting to discuss creative ways of d/c planning for Pt. Alexandre got feedback from Chaplains that they can provide music therapy and support. Chaplain Dela Cruz working on it. Date Signed: 11/22/2016 03:55 PM Electronically Signed By:Kristan Maynard
[2016-11-22] MEDS: SENNOSIDES/DOCUSATE SODIUM TAB PO SCH (19:59)
[2016-11-22] MEDS: VENLAFAXINE XR 150 MG CAP PO SCH (20:00)
[2016-11-22] MEDS: CARBIDOPA/LEVO CR 50 MG/200 MG TAB PO SCH (22:46)
[2016-11-23] MEDS: ENTACAPONE 200 MG TAB PO SCH ×3 (06:23→21:00)
[2016-11-23] MEDS: CARBIDOPA/LEVODOPA 25 MG/100 MG TAB PO SCH ×4 (06:23→21:00)
[2016-11-23] MEDS: ENOXAPARIN 40 MG/0.4 ML SYR SC SCH (07:37)
--- NOTE | 2016-11-23 08:20 | NEUROPROG ---
Assessment: Pt is stable and awaiting placement for ongoing care. The Parkinsons regimen is working and should be continued as outlined. I will sign off. call for further questions. Objective: Vital Signs Temp Pulse Resp BP Pulse Ox 37.0 C 99 16 94/55 L 93 11/23/16 07:53 11/23/16 07:53 11/23/16 07:53 11/23/16 07:53 11/23/16 07:53 11/22/16 11/23/16 11/24/16 05:59 05:59 05:59 Intake Total 150 1211 Output Total 200 920 Balance -50 291 Allergies/Adverse Reactions: quetiapine [From Seroquel] Allergy (Verified 11/16/16 22:36)
[2016-11-23] MEDS: SENNOSIDES/DOCUSATE SODIUM TAB PO SCH ×2 (10:21→21:00)
[2016-11-23] MEDS: FOLIC ACID 1 MG TAB PO SCH (10:22)
[2016-11-23] MEDS: VENLAFAXINE XR 75 MG CAP PO SCH (10:23)
[2016-11-23] MEDS: SELEGILINE HCL 5 MG CAP PO SCH (10:23)
[2016-11-23] MEDS: QUEtiapine FUMARATE 25 MG TAB PO SCH (10:23)
[2016-11-23] MEDS: DICYCLOMINE 10 MG CAP PO SCH ×3 (10:27→21:00)
--- NOTE | 2016-11-23 15:02 | HOSPPROG ---
Hospitalist Progress Note Assessment/Plan: 71-year-old male with Parkinson's disease, personality disorder and a history of aggressive behavior. -Since admission the patient was not agitated easy to interact with an converse and very cooperative. Reviewing the Neurology consultation note I concur that the gentleman does not have dementia as he is quite clear in his needs, his problems, and the difficulties he has had. He has a very bright gentleman who clearly becomes frustrated when he does not get his medication on time because he does be calmed quite motor impaired when he does not receive his dopamine medication on a regular schedule. Please review the Neurology consult for the specifics. I spoke with Dr. Robertson personally and will be coordinating care with him. -Parkinson's disease: Gentleman's medication regime would indicate significant doses of levodopa and carbidopa. Neurology agrees that his current medications are appropriate and no changes will be made. The problem with the medication is if the medication is not given in a very timely manner the gentleman has Bradykinesis. The patient is very aware of this and becomes frustrated when he does not get his medication on time -depression and antidepressive medications: He is taking significant antidepressive medications of Effexor along with Siligine. No changes will be made to this medication -chronic pain: He is on a rational dose of medication for control of his pain. he has a history of a left-sided arm and leg fracture in this is a source of his chronic pain. -decubitus ulceration of the sacrum: This was present on admission and he is refusing to allow us to treated. Is currently covered with a bandage. Will change the bandage every 2-3 days. -disposition: This is a very difficult social situation as he has alienated himself from any of the SNF and rehab facilities in the area. We will seek placement for this gentleman and see to clarify and perhaps change some of his psychiatric and parkinsonian medication. Perhaps this will improve the gentleman's ability to manage his own emotions and behavior. Time: 45 minutes. Case has been discussed with Neurology and Dr. Dewayne Robertson. Subjective: No complaints. As the patient has been receiving his medications on a timely basis since admission his motor function and speech herbal heme much improved today he is much easier to understand and he can speak clearly about his needs and understands that he gets frustrated when he does get his medication on time. Objective: Vital Signs Temp Pulse Resp BP Pulse Ox 37.0 C 99 16 94/55 L 93 11/23/16 07:53 11/23/16 07:53 11/23/16 07:53 11/23/16 07:53 11/23/16 07:53 11/22/16 11/23/16 11/24/16 05:59 05:59 05:59 Intake Total 150 1211 Output Total 200 920 200 Balance -50 291 -200 - Time Spent With Patient Time Spent with Patient: greater than 35 minutes Time Spent with Patient: Greater than 35 minutes spent on this patients care, greater than 50% of time spent counseling, educating, and coordinating care regarding the above mentioned plan. - Pending Discharge Pending Discharge Within 24 Hours: No Pending Discharge Within 48 Hours: No - Physical Exam Constitutional: no apparent distress, chronically ill appearing, other (Very thin) Eyes: PERRL, anicteric sclera Ears, Nose, Mouth, Throat: moist mucous membranes, hearing normal Cardiovascular: regular rate and rhythym, no murmur, rub, or gallop Respiratory: no respiratory distress, no rales or rhonchi, clear to auscultation Gastrointestinal: normoactive bowel sounds, soft, non-tender abdomen, no palpable masses Genitourinary: no bladder fullness Skin: warm Musculoskeletal: generalized weakness Neurologic: AAOx3, CN II-XII Intact Psychiatric: interacting appropriately, other (Today he can articulate his needs clearly and is much easier to understand as he has been receiving his medications in a timely manner.) ICD10 Worksheet Patient Problems: Problems Problem Status Onset Parkinson disease Acute Aggressive behavior Acute
--- NOTE | 2016-11-23 15:13 | ASMTCMCOM ---
CM Note CM Note Notes: Today SWer continued to brainstorm d/c ideas and consulted w/ care team and assistant floor covering printer. After consulting w/ CM [facility], called [facility] regarding Pt. Made mandatory report for a "vulnerable disabled older adult" w/ FTT. Paola from [facility] took report. Asked Paola to ask [facility] staff to call to offer advice even if [facility] decides not to open case. SWer also called [facility] case management rn at [facility]. Left msgs for both Jomar Stern and Eric x104 or "O" for the desktop support specialist. Await return calls. It is possible Pt. could live independently in own apartment w/ HCBS services if apt was found. Pt. told Ethics he wants to live in an apt. The past two days Pt. has had markedly better behavior on the 3E floor. Pt. getting music therapy provided by [employer]. Neurology consult states Pt. will do best physically and behaviorally when dopamine medication is given at the exact time it is due. This is often VERY difficult to make happen at nursing homes and may be contributing to his lack of success at many facilities. YOUSIF/JALEESA to follow for d/c POC. Date Signed: 11/23/2016 03:12 PM Electronically Signed By:Kristan Maynard
[2016-11-23] MEDS: VENLAFAXINE XR 150 MG CAP PO SCH (21:00)
[2016-11-24] MEDS: CARBIDOPA/LEVO CR 50 MG/200 MG TAB PO SCH ×2 (00:55→22:56)
[2016-11-24 05:22] LABS: % IMMATURE GRANULYOCYTES 0.2 % (0.0-1.1); ABSOLUTE IMMATURE GRANULOCYTES 0.02 10^3/uL (0.00-0.10); ADD DIFF? NO; ADD MORPH? NO; ADD SCAN? NO; ATYPICAL LYMPHOCYTE FLAG 10 (0-99); FRAGMENT RBC FLAG 0 (0-99); HEMATOCRIT 41.8 % (40.0-51.0); LEFT SHIFT FLG 0 (0-99); LIPEMIA HEMOLYSIS FLAG 80 (0-99); MEAN CELL HEMOGLOBIN 30.9 pg (27.9-34.1); MEAN CELL HEMOGLOBIN CONCENTR. 33.5 g/dL (32.4-36.7); MEAN CELL VOLUME 92.3 fL (81.5-99.8); MEAN PLATELET VOLUME 9.8 fL (8.7-11.7); PLATELET CLUMPS FLAG 10 (0-99); PLATELET COUNT 195 10^3/uL (150-400); RED BLOOD CELL COUNT 4.53 10^6/uL (4.40-6.38); RED CELL DISTRIBUTION WIDTH 13.7 % (11.5-15.2)
[2016-11-24 05:43] LABS: ANION GAP 12 mEq/L (8-16); CALCIUM 9.9 mg/dL (8.5-10.4); CARBON DIOXIDE 24 mEq/l (22-31); CHLORIDE 103 mEq/L (97-110); CREATININE 0.8 mg/dL (0.7-1.3); GLOMERULAR FILTRATION RATE > 60; GLUCOSE 103 mg/dL (70-100); POTASSIUM 4.5 mEq/L (3.5-5.2); SODIUM 139 mEq/L (134-144)
[2016-11-24] MEDS: CARBIDOPA/LEVODOPA 25 MG/100 MG TAB PO SCH ×4 (06:07→18:55)
[2016-11-24] MEDS: ENTACAPONE 200 MG TAB PO SCH ×3 (06:07→20:56)
--- NOTE | 2016-11-24 08:57 | HOSPPROG ---
Hospitalist Progress Note Assessment/Plan: # behavioral issues/personality disorder - better; today he is calm and cooperative # Parkinson's disease - appreciate neurology assistance - cont sinemet, entacapone # chronic pain - oxy prn # abd hernia - does not seem incarcerated; will make sure he has a BM today # recent cervical fusion 10/21/16 - tells me he is amenable to hard collar if it fits - I have ordered a hard collar; he needs to f/u Dr Goel # homeless # decubitus ulcer, POA - woud care # dispo: difficult; CM working on options Subjective: re complains of constipation; happy with care here Objective: Vital Signs Temp Pulse Resp BP Pulse Ox 36.3 C 93 20 123/80 H 94 11/24/16 07:19 11/24/16 07:19 11/24/16 07:19 11/24/16 07:19 11/24/16 07:19 Laboratory Results 11/24/16 04:51 11/24/16 04:51 11/23/16 11/24/16 11/25/16 05:59 05:59 05:59 Intake Total 1211 1071 Output Total 920 600 Balance 291 471 chart reviewed; - Time Spent With Patient Time Spent with Patient: greater than 35 minutes Time Spent with Patient: Greater than 35 minutes spent on this patients care, greater than 50% of time spent counseling, educating, and coordinating care regarding the above mentioned plan. - Physical Exam Constitutional: chronically ill appearing Cardiovascular: regular rate and rhythym, no murmur, rub, or gallop Respiratory: no respiratory distress, no rales or rhonchi, clear to auscultation Gastrointestinal: normoactive bowel sounds, soft, non-tender abdomen, no palpable masses, other (small R lower quadrant hernia, not very TTP) ICD10 Worksheet Patient Problems: Problems Problem Status Onset Parkinson disease Acute Aggressive behavior Acute
[2016-11-24] MEDS: DICYCLOMINE 10 MG CAP PO SCH ×3 (10:03→20:56)
[2016-11-24] MEDS: FOLIC ACID 1 MG TAB PO SCH (10:03)
[2016-11-24] MEDS: SELEGILINE HCL 5 MG CAP PO SCH (10:04)
[2016-11-24] MEDS: QUEtiapine FUMARATE 25 MG TAB PO SCH (10:04)
[2016-11-24] MEDS: VENLAFAXINE XR 75 MG CAP PO SCH (10:04)
[2016-11-24] MEDS: ENOXAPARIN 40 MG/0.4 ML SYR SC SCH (10:07)
[2016-11-24] MEDS: oxyCODONE IR 5 MG TAB PO PRN ×2 (10:10→18:57)
[2016-11-24] MEDS: SENNOSIDES/DOCUSATE SODIUM TAB PO SCH ×3 (10:10→21:14)
--- NOTE | 2016-11-24 16:03 | ASMTCMCOM ---
CM Note CM Note Notes: Zandrar met w/ Pt. today in room. Pt. appropriate and thinking clearly. Sometimes it is difficult to understand him due to rapid speech, but if one asks him to slow down, he does. Pt. is open to senior living placement or his own apartment. Discussed difficulties w/ his placement and how he has circles through correction, homelessness, and hospitals for the past year. Pt. agreed w/ history. Pt. would like Zandrar to assist him on Saturday with locating some of his belongings at [facility] and the [place] at [facility]. Pt. would also like assistance working on his finances. Apparently has large checks with him and wants to work on getting them to his bank account. Alexandre paged to get charging cord for [employer] player. Working to charge device today. Pt. listening to music has greatly assisted in improving his happiness and behaviors. Alexandre/JALEESA to follow for d/c POC. Date Signed: 11/24/2016 04:02 PM Electronically Signed By:Kristan Maynard
[2016-11-24] MEDS: VENLAFAXINE XR 150 MG CAP PO SCH (20:56)
[2016-11-25] MEDS: CARBIDOPA/LEVODOPA 25 MG/100 MG TAB PO SCH ×4 (07:18→18:54)
[2016-11-25] MEDS: ENTACAPONE 200 MG TAB PO SCH ×3 (07:18→22:50)
[2016-11-25] MEDS: DICYCLOMINE 10 MG CAP PO SCH ×3 (10:22→22:50)
[2016-11-25] MEDS: FOLIC ACID 1 MG TAB PO SCH (10:22)
[2016-11-25] MEDS: SENNOSIDES/DOCUSATE SODIUM TAB PO SCH ×2 (10:24→22:50)
[2016-11-25] MEDS: QUEtiapine FUMARATE 25 MG TAB PO SCH (10:24)
[2016-11-25] MEDS: VENLAFAXINE XR 75 MG CAP PO SCH (10:24)
[2016-11-25] MEDS: SELEGILINE HCL 5 MG CAP PO SCH (10:25)
[2016-11-25] MEDS: ENOXAPARIN 40 MG/0.4 ML SYR SC SCH (10:30)
--- NOTE | 2016-11-25 11:13 | HOSPPROG ---
Hospitalist Progress Note Assessment/Plan: # behavioral issues/personality disorder - better; today he is calm and cooperative - apparently does not have an axis 1 diagnosis # Parkinson's disease - appreciate neurology assistance - cont sinemet, entacapone # chronic pain - oxy prn # abd hernia - does not seem incarcerated # recent cervical fusion 10/21/16 - he refused the hard collar that was ordered yesterday # homeless # decubitus ulcer, POA - wound care # dispo: difficult; CM working on options Subjective: wants to go outside today; refused brace yesterday Objective: Vital Signs Temp Pulse Resp BP Pulse Ox 36.9 C 88 20 136/84 H 96 11/25/16 07:56 11/25/16 07:56 11/25/16 07:56 11/25/16 07:56 11/25/16 07:56 Laboratory Results 11/24/16 04:51 11/24/16 04:51 11/24/16 11/25/16 11/26/16 05:59 05:59 05:59 Intake Total 1071 400 Output Total 600 Balance 471 400 - Physical Exam Constitutional: no apparent distress, appears nourished Cardiovascular: regular rate and rhythym, no murmur, rub, or gallop Respiratory: no respiratory distress, no rales or rhonchi, clear to auscultation Gastrointestinal: normoactive bowel sounds, soft, non-tender abdomen, no palpable masses ICD10 Worksheet Patient Problems: Problems Problem Status Onset Parkinson disease Acute Aggressive behavior Acute
[2016-11-25] MEDS: oxyCODONE IR 5 MG TAB PO PRN (16:20)
[2016-11-25] MEDS: CARBIDOPA/LEVO CR 50 MG/200 MG TAB PO SCH (22:50)
[2016-11-25] MEDS: VENLAFAXINE XR 150 MG CAP PO SCH (22:50)
[2016-11-26] MEDS: oxyCODONE IR 5 MG TAB PO PRN ×2 (00:27→19:16)
[2016-11-26] MEDS: ENTACAPONE 200 MG TAB PO SCH ×3 (07:03→21:56)
[2016-11-26] MEDS: CARBIDOPA/LEVODOPA 25 MG/100 MG TAB PO SCH ×4 (07:03→19:05)
--- NOTE | 2016-11-26 09:39 | HOSPPROG ---
Hospitalist Progress Note Assessment/Plan: # behavioral issues/personality disorder - better; today he is calm and cooperative while here - much better with music, well timed med administrations - apparently does not have an axis 1 diagnosis # Parkinson's disease - appreciate neurology assistance - cont sinemet, entacapone # chronic pain - oxy prn # abd hernia - does not seem incarcerated # recent cervical fusion 10/21/16 - he refused the hard collar that was ordered yesterday # homeless # decubitus ulcer, POA - wound care # dispo: difficult; CM working on options Subjective: no complaints today; concerned about his seroquel Objective: Vital Signs Temp Pulse Resp BP Pulse Ox 36.4 C 78 14 138/83 H 94 11/26/16 08:00 11/26/16 08:00 11/26/16 08:00 11/26/16 08:00 11/26/16 08:00 Laboratory Results 11/24/16 04:51 11/24/16 04:51 11/25/16 11/26/16 11/27/16 05:59 05:59 05:59 Intake Total 400 900 Output Total 675 Balance 400 225 - Physical Exam Constitutional: no apparent distress, appears nourished, other (moving well) Cardiovascular: regular rate and rhythym, no murmur, rub, or gallop Respiratory: no respiratory distress, no rales or rhonchi, clear to auscultation Gastrointestinal: normoactive bowel sounds, soft, non-tender abdomen, no palpable masses ICD10 Worksheet Patient Problems: Problems Problem Status Onset Parkinson disease Acute Aggressive behavior Acute
[2016-11-26] MEDS: VENLAFAXINE XR 75 MG CAP PO SCH (10:15)
[2016-11-26] MEDS: SENNOSIDES/DOCUSATE SODIUM TAB PO SCH ×2 (10:30→21:55)
[2016-11-26] MEDS: SELEGILINE HCL 5 MG CAP PO SCH (10:31)
[2016-11-26] MEDS: FOLIC ACID 1 MG TAB PO SCH (10:31)
[2016-11-26] MEDS: DICYCLOMINE 10 MG CAP PO SCH ×3 (10:32→21:56)
[2016-11-26] MEDS: QUEtiapine FUMARATE 25 MG TAB PO SCH (10:32)
[2016-11-26] MEDS: ENOXAPARIN 40 MG/0.4 ML SYR SC SCH (10:34)
[2016-11-26] MEDS: VENLAFAXINE XR 150 MG CAP PO SCH (21:56)
[2016-11-26] MEDS: CARBIDOPA/LEVO CR 50 MG/200 MG TAB PO SCH (22:01)
[2016-11-27] MEDS: ENTACAPONE 200 MG TAB PO SCH ×3 (06:33→21:16)
[2016-11-27] MEDS: CARBIDOPA/LEVODOPA 25 MG/100 MG TAB PO SCH ×4 (06:40→19:14)
[2016-11-27] MEDS: VENLAFAXINE XR 75 MG CAP PO SCH (08:25)
[2016-11-27] MEDS: DICYCLOMINE 10 MG CAP PO SCH ×3 (08:25→21:16)
[2016-11-27] MEDS: QUEtiapine FUMARATE 25 MG TAB PO SCH (08:26)
[2016-11-27] MEDS: SENNOSIDES/DOCUSATE SODIUM TAB PO SCH ×2 (08:26→21:15)
[2016-11-27] MEDS: FOLIC ACID 1 MG TAB PO SCH (08:27)
[2016-11-27] MEDS: SELEGILINE HCL 5 MG CAP PO SCH (08:28)
[2016-11-27] MEDS: oxyCODONE IR 5 MG TAB PO PRN ×2 (10:12→21:35)
[2016-11-27] MEDS: ENOXAPARIN 40 MG/0.4 ML SYR SC SCH (10:13)
--- NOTE | 2016-11-27 16:21 | HOSPPROG ---
Hospitalist Progress Note Assessment/Plan: 71-year-old with known Parkinson's disease and said to have aggressive behavior. Since admission his medications have been clarified in given on time in his behaviors much improved. As he is at a daily a cheesh-na himself from several care facilities in the area his placement has been difficult. Patient is new to me today -Parkinson's disease: and much better control now that he is receiving his medications on time. Continue his Sinemet and entacapone. -depression and antidepressive medications: He is taking significant antidepressive medications of Effexor along with Siligine. No changes will be made to this medication -chronic pain: He is on a rational dose of medication for control of his pain. he has a history of a left-sided arm and leg fracture in this is a source of his chronic pain. -decubitus ulceration of the sacrum: This was present on admission and he is refusing to allow us to treated. Is currently covered with a bandage. Will change the bandage every 2-3 days. - Abdominal ventral hernia which does not painful or incarcerated. Status post cervical fusion 10/21/16 and doing well. Patient does not reliably wear the cervical collar. - Homeless social status practically as he has alienated himself from care facilities due to difficulties with his medications and timing of meds. -disposition: This is a very difficult social situation as he has alienated himself from any of the SNF and rehab facilities in the area. We will seek placement for this gentleman and see to clarify and perhaps change some of his psychiatric and parkinsonian medication. Perhaps this will improve the gentleman's ability to manage his own emotions and behavior. Time: 45 minutes. Case has been discussed with Neurology and Dr. Dewayne Robertson. Subjective: No complaints no chest pain shortness of breath nausea or vomiting. Case management has been working with him and will get him addictive phone to speak in to record his thoughts and feelings. Objective: Vital Signs Temp Pulse Resp BP Pulse Ox 36.6 C 75 16 100/63 95 11/27/16 08:00 11/27/16 08:00 11/27/16 08:00 11/27/16 10:11 11/27/16 08:00 Laboratory Results 11/24/16 04:51 11/24/16 04:51 0911/27/16 11/28/16 05:59 05:59 05:59 Intake Total 900 480 360 Output Total 675 350 Balance 225 130 360 - Time Spent With Patient Time Spent with Patient: greater than 35 minutes Time Spent with Patient: Greater than 35 minutes spent on this patients care, greater than 50% of time spent counseling, educating, and coordinating care regarding the above mentioned plan. - Pending Discharge Pending Discharge Within 24 Hours: No Pending Discharge Within 48 Hours: No - Physical Exam Constitutional: chronically ill appearing, other ( Very thin) Eyes: PERRL, anicteric sclera Ears, Nose, Mouth, Throat: moist mucous membranes, hearing normal Cardiovascular: regular rate and rhythym, systolic murmur Respiratory: no respiratory distress, no rales or rhonchi, clear to auscultation Gastrointestinal: normoactive bowel sounds, soft, non-tender abdomen, no palpable masses, other ( very thi) Genitourinary: no bladder fullness Skin: warm Musculoskeletal: generalized weakness Neurologic: AAOx3, CN II-XII Intact Psychiatric: interacting appropriately ICD10 Worksheet Patient Problems: Problems Problem Status Onset Parkinson disease Acute Aggressive behavior Acute
--- NOTE | 2016-11-27 17:40 | ASMTCMCOM ---
CM Note CM Note Notes: Today SWer met w/ Pt. in his room alone. 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 Pt. discussed his anger when people express anti-semetic views to him. His mother was Adventist. This has happened frequently in nursing homes per Pt. 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 Pt. shared that his in 1990 from lung cancer. Pt. states he spent much money on his 's treatment and then after she , he got "a lot of speeding tickets and reckless driving tickets" but did not drink and drive. Discussed how different assisted livings owe him money/belongings. SWer contacted [facility] . They stated that they no longer have any belongings of Pt's Stated all of his belongings are at the [facility] at [facility] . [facility] social welfare research worker Senait states that Paola with [employer] has his belongings and will deliver them to [facility] by end of business Saturday this week - Paola . Pt. is interested in the [facility] bringing him a receipt for a laptop he bought in October from [employer]. Laptop not working and Pt. would like to either return in or get a new one. Notably, Pt. states [facility] has some $1,175 of his money still. Will work with [facility] on this. Rodrigo Reynoso called from [facility]. States they will not assist on case. SWer to call them back and insist on assistance w/ placement and possible financial exploitation. Director Yodit Stauffer assisted w/ speaking w/ Pt. about depositing his check from [facility]'s office for some $4 into his account at [employer]. After deposit, Pt. would like to get a money order to have to pay off a debt to a friend related to housing costs. SWer to attempt to assist with this. Director Stauffer also assisted with trying to contact Eric from [facility] program to follow up on SWer's messages about possibility of placing Pt. in a [facility] apartment. Await return contact from Eric. During conversation today, Pt. agreed he could benefit from a dictation device to begin to account his life's story. Also could benefit from a [employer] iPad to look at his Facebook page with pictures on it. [facility] to assist. D/c plan at this time: Housing First apartment, Medicare SNF placement at a facility further from area. Pt. declined at all SNFs faxed thus far. YOUSIF/JALEESA to follow for d/c POC. Date Signed: 11/27/2016 05:40 PM Electronically Signed By:Kristan Maynard
[2016-11-27] MEDS: VENLAFAXINE XR 150 MG CAP PO SCH (21:16)
[2016-11-27] MEDS: CARBIDOPA/LEVO CR 50 MG/200 MG TAB PO SCH (22:36)
[2016-11-28] MEDS: CARBIDOPA/LEVODOPA 25 MG/100 MG TAB PO SCH ×4 (07:26→19:14)
[2016-11-28] MEDS: ENTACAPONE 200 MG TAB PO SCH ×3 (07:27→21:23)
[2016-11-28] MEDS: SENNOSIDES/DOCUSATE SODIUM TAB PO SCH ×2 (08:58→21:23)
[2016-11-28] MEDS: FOLIC ACID 1 MG TAB PO SCH (08:59)
[2016-11-28] MEDS: VENLAFAXINE XR 75 MG CAP PO SCH (08:59)
[2016-11-28] MEDS: SELEGILINE HCL 5 MG CAP PO SCH (08:59)
[2016-11-28] MEDS: DICYCLOMINE 10 MG CAP PO SCH ×3 (09:00→21:23)
[2016-11-28] MEDS: oxyCODONE IR 5 MG TAB PO PRN ×2 (09:10→19:16)
[2016-11-28] MEDS: ENOXAPARIN 40 MG/0.4 ML SYR SC SCH (09:15)
[2016-11-28] MEDS: QUEtiapine FUMARATE 25 MG TAB PO SCH (09:38)
--- NOTE | 2016-11-28 16:06 | HOSPPROG ---
Hospitalist Progress Note Assessment/Plan: 71-year-old with known Parkinson's disease and said to have aggressive behavior. Since admission his medications have been clarified in given on time in his behaviors much improved. Placement is difficult as he has alienated personnel at many facilities. -Parkinson's disease: and much better control now that he is receiving his medications on time. Continue his Sinemet and entacapone. -depression and antidepressive medications: He is taking significant antidepressive medications of Effexor along with Siligine. No changes will be made to this medication -chronic pain: He is on a rational dose of medication for control of his pain. he has a history of a left-sided arm and leg fracture in this is a source of his chronic pain. Pain currently in good control as he is able to ambulate with a walker and ambulate on his own for short distances. -decubitus ulceration of the sacrum: This was present on admission and he is refusing to allow us to treated. Is currently covered with a bandage. Will change the bandage every 2-3 days. This is slowly improving - Abdominal ventral hernia which does not painful or incarcerated. Status post cervical fusion 10/21/16 and doing well. Patient does not reliably wear the cervical collar. - Homeless social status practically as he has alienated himself from care facilities due to difficulties with his medications and timing of meds. -disposition: This is a very difficult social situation as he has alienated himself from any of the SNF and rehab facilities in the area. We will seek placement for this gentleman and see to clarify and perhaps change some of his psychiatric and parkinsonian medication. Perhaps this will improve the gentleman's ability to manage his own emotions and behavior. Time: 45 minutes. Had old long frontally discussion with the gentleman as he explained his viewpoint and needs. All questions were answered. Subjective: No complaints appears to be ambulating well with a walker and without assistance for short distances. This is much improved from previously. Objective: Vital Signs Temp Pulse Resp BP Pulse Ox 36.1 C 75 16 103/69 95 11/28/16 15:45 11/28/16 15:45 11/28/16 15:45 11/28/16 15:45 11/28/16 15:45 Laboratory Results 11/24/16 04:51 11/24/16 04:51 11/27/16 11/28/16 11/29/16 05:59 05:59 05:59 Intake Total 480 1000 Output Total 350 750 Balance 130 250 - Time Spent With Patient Time Spent with Patient: greater than 35 minutes Time Spent with Patient: Greater than 35 minutes spent on this patients care, greater than 50% of time spent counseling, educating, and coordinating care regarding the above mentioned plan. - Pending Discharge Pending Discharge Within 24 Hours: No Pending Discharge Within 48 Hours: No - Physical Exam Constitutional: no apparent distress, cachectic Eyes: PERRL Ears, Nose, Mouth, Throat: moist mucous membranes, hearing normal Cardiovascular: regular rate and rhythym, systolic murmur Respiratory: no respiratory distress, no rales or rhonchi, clear to auscultation Gastrointestinal: normoactive bowel sounds, soft, non-tender abdomen, no palpable masses, other (Very thin) Genitourinary: no bladder fullness Skin: warm Musculoskeletal: generalized weakness Neurologic: AAOx3, CN II-XII Intact, other (Muscle rigidity and stiffness is much decreased from the time of admission. He is able to now walk with the use of a walker and at times on his own for 10-20 feet.) Psychiatric: interacting appropriately, other (Pleasant and working hard to resolve his problems.) ICD10 Worksheet Patient Problems: Problems Problem Status Onset Parkinson disease Acute Aggressive behavior Acute
[2016-11-28] MEDS: VENLAFAXINE XR 150 MG CAP PO SCH (21:23)
[2016-11-28] MEDS: ACETAMINOPHEN 325 MG TAB PO PRN (21:23)
[2016-11-28] MEDS: CARBIDOPA/LEVO CR 50 MG/200 MG TAB PO SCH (22:55)
[2016-11-29] MEDS: oxyCODONE IR 5 MG TAB PO PRN (05:25)
[2016-11-29] MEDS: CARBIDOPA/LEVODOPA 25 MG/100 MG TAB PO SCH ×4 (06:30→19:12)
[2016-11-29] MEDS: ENTACAPONE 200 MG TAB PO SCH ×3 (06:30→21:25)
[2016-11-29] MEDS: SELEGILINE HCL 5 MG CAP PO SCH (09:50)
[2016-11-29] MEDS: DICYCLOMINE 10 MG CAP PO SCH ×3 (09:51→21:25)
[2016-11-29] MEDS: FOLIC ACID 1 MG TAB PO SCH (09:51)
[2016-11-29] MEDS: SENNOSIDES/DOCUSATE SODIUM TAB PO SCH ×2 (09:52→21:24)
[2016-11-29] MEDS: VENLAFAXINE XR 75 MG CAP PO SCH (09:53)
[2016-11-29] MEDS: QUEtiapine FUMARATE 25 MG TAB PO SCH (09:54)
[2016-11-29] MEDS: ENOXAPARIN 40 MG/0.4 ML SYR SC SCH (11:07)
--- NOTE | 2016-11-29 17:02 | HOSPPROG ---
Hospitalist Progress Note Assessment/Plan: 71-year-old with known Parkinson's disease and said to have aggressive behavior. Since admission his medications have been clarified in given on time in his behaviors much improved. Placement is difficult as he has alienated personnel at many facilities. Patient continues to do well without complaints we have been unable to obtain placement. -Parkinson's disease: and much better control now that he is receiving his medications on time. Continue his Sinemet and entacapone. -depression and antidepressive medications: He is taking significant antidepressive medications of Effexor along with Siligine. No changes will be made to this medication -chronic pain: He is on a rational dose of medication for control of his pain. he has a history of a left-sided arm and leg fracture in this is a source of his chronic pain. Pain currently in good control as he is able to ambulate with a walker and ambulate on his own for short distances. -decubitus ulceration of the sacrum: This was present on admission and he is refusing to allow us to treated. Is currently covered with a bandage. Will change the bandage every 2-3 days. This is slowly improving - Abdominal ventral hernia which does not painful or incarcerated. Status post cervical fusion 10/21/16 and doing well. Patient does not reliably wear the cervical collar. - Homeless social status practically as he has alienated himself from care facilities due to difficulties with his medications and timing of meds. -disposition: This is a very difficult social situation as he has alienated himself from any of the SNF and rehab facilities in the area. We will seek placement for this gentleman and see to clarify and perhaps change some of his psychiatric and parkinsonian medication. Perhaps this will improve the gentleman's ability to manage his own emotions and behavior. Time: 35 minutes Subjective: No complaints. He reports he is doing much better his speech is more articulate. Objective: Vital Signs Temp Pulse Resp BP Pulse Ox 36.7 C 83 18 98/65 L 92 11/29/16 15:36 11/29/16 15:36 11/29/16 15:36 11/29/16 15:36 11/29/16 15:36 Laboratory Results 11/24/16 04:51 11/24/16 04:51 11/28/16 11/29/16 11/30/16 05:59 05:59 05:59 Intake Total 1000 1130 Output Total 750 875 Balance 250 255 - Time Spent With Patient Time Spent with Patient: greater than 25 minutes Time Spent with Patient: Greater than 25 minutes spent on this patients care, greater than 50% of time spent counseling, educating, and coordinating care regarding the above mentioned plan. - Pending Discharge Pending Discharge Within 24 Hours: No Pending Discharge Within 48 Hours: No - Physical Exam Constitutional: no apparent distress, cachectic Eyes: PERRL, anicteric sclera Ears, Nose, Mouth, Throat: moist mucous membranes Cardiovascular: regular rate and rhythym, systolic murmur Respiratory: no respiratory distress, no rales or rhonchi, clear to auscultation Gastrointestinal: normoactive bowel sounds, soft, non-tender abdomen, no palpable masses, tenderness Neurologic: AAOx3, CN II-XII Intact Psychiatric: interacting appropriately ICD10 Worksheet Patient Problems: Problems Problem Status Onset Parkinson disease Acute Aggressive behavior Acute
[2016-11-29] MEDS: CARBIDOPA/LEVO CR 50 MG/200 MG TAB PO SCH (22:58)
[2016-11-29] MEDS: VENLAFAXINE XR 150 MG CAP PO SCH (23:06)
[2016-11-30] MEDS: oxyCODONE IR 5 MG TAB PO PRN (01:47)
[2016-11-30] MEDS: ENTACAPONE 200 MG TAB PO SCH ×3 (06:35→23:09)
[2016-11-30] MEDS: CARBIDOPA/LEVODOPA 25 MG/100 MG TAB PO SCH ×4 (06:35→18:53)
[2016-11-30] MEDS: QUEtiapine FUMARATE 25 MG TAB PO SCH (08:55)
[2016-11-30] MEDS: FOLIC ACID 1 MG TAB PO SCH (08:55)
[2016-11-30] MEDS: DICYCLOMINE 10 MG CAP PO SCH ×3 (08:55→23:09)
[2016-11-30] MEDS: VENLAFAXINE XR 75 MG CAP PO SCH (08:55)
[2016-11-30] MEDS: SELEGILINE HCL 5 MG CAP PO SCH (08:55)
[2016-11-30] MEDS: SENNOSIDES/DOCUSATE SODIUM TAB PO SCH ×2 (08:56→20:21)
[2016-11-30] MEDS: ENOXAPARIN 40 MG/0.4 ML SYR SC SCH (09:04)
--- NOTE | 2016-11-30 16:44 | HOSPPROG ---
Hospitalist Progress Note Assessment/Plan: 71-year-old with known Parkinson's disease and said to have aggressive behavior. Since admission his medications have been clarified in given on time in his behaviors much improved. Placement is difficult as he has alienated personnel at many facilities. Patient continues to do well without complaints we have been unable to obtain placement. -Parkinson's disease: and much better control now that he is receiving his medications on time. Continue his Sinemet and entacapone. -depression and antidepressive medications: He is taking significant antidepressive medications of Effexor along with Siligine. No changes will be made to this medication -chronic pain: He is on a rational dose of medication for control of his pain. he has a history of a left-sided arm and leg fracture in this is a source of his chronic pain. Pain currently in good control as he is able to ambulate with a walker and ambulate on his own for short distances. -decubitus ulceration of the sacrum: This was present on admission and he is refusing to allow us to treated. Is currently covered with a bandage. Will change the bandage every 2-3 days. This is slowly improving - Abdominal ventral hernia which does not painful or incarcerated. Status post cervical fusion 10/21/16 and doing well. Patient does not reliably wear the cervical collar. - Homeless social status practically as he has alienated himself from care facilities due to difficulties with his medications and timing of meds. -disposition: This is a very difficult social situation as he has alienated himself from any of the SNF and rehab facilities in the area. We will seek placement for this gentleman and see to clarify and perhaps change some of his psychiatric and parkinsonian medication. Perhaps this will improve the gentleman's ability to manage his own emotions and behavior. Note specifically that the gentleman must receive his Parkinson's medications on time. Even a few hours delay results in significant braided kidney cyst from which she takes days to recover. The patient is aware of this and becomes very frustrated if he does not get his medication on time as the bradykinesia is locks him in. Is likely all of his problems at other facilities been secondary to delay and his medications. With medication this gentleman can be quite pleasant interactive and he is very bright and he is not a problem. He becomes frustrated and angry when he does not get his medication on time as he knows that he will suffer Bradykinesis Time: 35 minutes Subjective: no complaints. He is pleasantly interactive and denies chest pain shortness of breath nausea or vomiting he is eating well. He has requested a placement in a [facility] SNF. I do not know of any Objective: Vital Signs Temp Pulse Resp BP Pulse Ox 36.7 C 78 18 111/73 92 11/30/16 15:58 11/30/16 15:58 11/30/16 15:58 11/30/16 15:58 11/30/16 15:58 Laboratory Results 11/24/16 04:51 11/24/16 04:51 11/29/16 11/30/16 12/01/16 05:59 05:59 05:59 Intake Total 1130 Output Total 875 275 Balance 255 -275 - Time Spent With Patient Time Spent with Patient: greater than 25 minutes Time Spent with Patient: Greater than 25 minutes spent on this patients care, greater than 50% of time spent counseling, educating, and coordinating care regarding the above mentioned plan. - Pending Discharge Pending Discharge Within 24 Hours: No Pending Discharge Within 48 Hours: No - Physical Exam Constitutional: no apparent distress, chronically ill appearing Eyes: PERRL, anicteric sclera Ears, Nose, Mouth, Throat: moist mucous membranes, hearing normal Cardiovascular: regular rate and rhythym, systolic murmur Respiratory: no respiratory distress, no rales or rhonchi, clear to auscultation Gastrointestinal: normoactive bowel sounds, soft, non-tender abdomen, no palpable masses Genitourinary: no bladder fullness Skin: warm Musculoskeletal: generalized weakness Neurologic: AAOx3, CN II-XII Intact, other ( some very mild bradykinesia this but it is significantly improved from his time of admission. Patient can walk approximately 10 feet on his own but then seeks some form is support.) ICD10 Worksheet Patient Problems: Problems Problem Status Onset Parkinson disease Acute Aggressive behavior Acute
[2016-11-30] MEDS: VENLAFAXINE XR 150 MG CAP PO SCH (20:21)
[2016-11-30] MEDS: CARBIDOPA/LEVO CR 50 MG/200 MG TAB PO SCH (23:09)
[2016-12-01] MEDS: oxyCODONE IR 5 MG TAB PO PRN ×2 (01:37→07:32)
[2016-12-01] MEDS: ACETAMINOPHEN 325 MG TAB PO PRN (01:40)
[2016-12-01] MEDS: ENTACAPONE 200 MG TAB PO SCH ×3 (07:06→18:48)
[2016-12-01] MEDS: CARBIDOPA/LEVODOPA 25 MG/100 MG TAB PO SCH ×4 (07:06→18:48)
[2016-12-01] MEDS: FOLIC ACID 1 MG TAB PO SCH (08:42)
[2016-12-01] MEDS: SENNOSIDES/DOCUSATE SODIUM TAB PO SCH ×2 (08:42→20:43)
[2016-12-01] MEDS: DICYCLOMINE 10 MG CAP PO SCH ×3 (08:42→22:56)
[2016-12-01] MEDS: ENOXAPARIN 40 MG/0.4 ML SYR SC SCH (09:25)
[2016-12-01] MEDS: QUEtiapine FUMARATE 25 MG TAB PO SCH (09:25)
[2016-12-01] MEDS: SELEGILINE HCL 5 MG CAP PO SCH (09:26)
[2016-12-01] MEDS: VENLAFAXINE XR 75 MG CAP PO SCH (09:26)
[2016-12-01 13:02] LABS: % IMMATURE GRANULYOCYTES 0.3 % (0.0-1.1); ABSOLUTE IMMATURE GRANULOCYTES 0.02 10^3/uL (0.00-0.10); ADD DIFF? NO; ADD MORPH? NO; ADD SCAN? NO; ATYPICAL LYMPHOCYTE FLAG 0 (0-99); FRAGMENT RBC FLAG 0 (0-99); HEMATOCRIT 41.7 % (40.0-51.0); HEMOGLOBIN 13.5 g/dL (13.7-17.5); LEFT SHIFT FLG 0 (0-99); LIPEMIA HEMOLYSIS FLAG 80 (0-99); MEAN CELL HEMOGLOBIN 30.8 pg (27.9-34.1); MEAN CELL HEMOGLOBIN CONCENTR. 32.4 g/dL (32.4-36.7); MEAN PLATELET VOLUME 9.7 fL (8.7-11.7); PLATELET CLUMPS FLAG 0 (0-99); PLATELET COUNT 207 10^3/uL (150-400); RED BLOOD CELL COUNT 4.39 10^6/uL (4.40-6.38); RED CELL DISTRIBUTION WIDTH 13.7 % (11.5-15.2)
[2016-12-01 13:19] LABS: ALANINE AMINOTRANSFERASE 17 IU/L (21-72); ALBUMIN 4.1 g/dL (3.5-5.0); ALKALINE PHOSPHATASE 45 IU/L (38-126); ANION GAP 12 mEq/L (8-16); ASPARTATE AMINOTRANSFERASE 15 IU/L (17-59); BILIRUBIN,TOTAL 0.4 mg/dL (0.1-1.4); CALCIUM 9.8 mg/dL (8.5-10.4); CARBON DIOXIDE 26 mEq/l (22-31); CHLORIDE 103 mEq/L (97-110); GLOMERULAR FILTRATION RATE > 60; GLUCOSE 118 mg/dL (70-100); POTASSIUM 4.6 mEq/L (3.5-5.2); SODIUM 141 mEq/L (134-144); TOTAL PROTEIN 7.5 g/dL (6.3-8.2)
[2016-12-01] MEDS ORDERED: OXYCODONE/APAP 5/325 TAB PO PRN (15:18)
--- NOTE | 2016-12-01 15:18 | HOSPPROG ---
Hospitalist Progress Note Assessment/Plan: 71-year-old with known Parkinson's disease and said to have aggressive behavior. Since admission his medications have been clarified, given on time AND his behaviors much improved. Placement is difficult as he has alienated personnel at many facilities. Patient continues to do well without complaints we have been unable to obtain placement. # Parkinson's disease: and much better control now that he is receiving his medications on time. Continue his Sinemet and entacapone. Patient making [place]no request today regarding timing of his medications. I did discuss this with pharmacy who spoke with the patient. # depression: Currently on anti depresses including Effexor and Siligine. # chronic pain: He is on a rational dose of medication for control of his pain. he has a history of a left-sided arm and leg fracture in this is a source of his chronic pain. Pain currently in good control as he is able to ambulate with a walker and ambulate on his own for short distances. # decubitus ulceration of the sacrum: This was present on admission and he is refusing to allow us to treated. Is currently covered with a bandage. Will change the bandage every 2-3 days. This is slowly improving # Abdominal ventral hernia which does not painful or incarcerated. Status post cervical fusion 10/21/16 and doing well. Patient does not reliably wear the cervical collar. -disposition: This is a very difficult social situation as he has alienated himself from any of the SNF and rehab facilities in the area. We will seek placement for this gentleman and see to clarify and perhaps change some of his psychiatric and parkinsonian medication. Perhaps this will improve the gentleman's ability to manage his own emotions and behavior. Note specifically that the gentleman must receive his Parkinson's medications on time. Even a few hours delay results in significant braided kidney cyst from which she takes days to recover. The patient is aware of this and becomes very frustrated if he does not get his medication on time as the bradykinesia is locks him in. Is likely all of his problems at other facilities been secondary to delay and his medications. With medication this gentleman can be quite pleasant interactive and he is very bright and he is not a problem. He becomes frustrated and angry when he does not get his medication on time as he knows that he will suffer Bradykinesis Subjective: Patient new to me and chart reviewed Objective: Vital Signs Temp Pulse Resp BP Pulse Ox 36.8 C 78 18 91/58 L 93 12/01/16 07:21 12/01/16 07:21 12/01/16 07:21 12/01/16 07:21 12/01/16 07:21 Laboratory Results 12/01/16 12:54 12/01/16 12:54 11/30/16 12/01/16 12/02/16 05:59 05:59 05:59 Output Total 275 390 Balance -275 -390 - Physical Exam Constitutional: no apparent distress, chronically ill appearing Psychiatric: interacting appropriately, flat affect ICD10 Worksheet Patient Problems: Problems Problem Status Onset Parkinson disease Acute Aggressive behavior Acute
[2016-12-01] MEDS: VENLAFAXINE XR 150 MG CAP PO SCH (20:43)
[2016-12-01] MEDS: CARBIDOPA/LEVO CR 50 MG/200 MG TAB PO SCH (22:56)
[2016-12-02] MEDS: SELEGILINE HCL 5 MG CAP PO SCH (06:21)
[2016-12-02] MEDS: CARBIDOPA/LEVODOPA 25 MG/100 MG TAB PO SCH ×4 (06:22→18:39)
[2016-12-02] MEDS: ENTACAPONE 200 MG TAB PO SCH ×3 (06:23→18:39)
[2016-12-02] MEDS: SENNOSIDES/DOCUSATE SODIUM TAB PO SCH ×2 (09:25→20:16)
[2016-12-02] MEDS: DICYCLOMINE 10 MG CAP PO SCH ×3 (09:25→22:58)
[2016-12-02] MEDS: FOLIC ACID 1 MG TAB PO SCH (09:26)
[2016-12-02] MEDS: ENOXAPARIN 40 MG/0.4 ML SYR SC SCH (09:27)
[2016-12-02] MEDS: VENLAFAXINE XR 75 MG CAP PO SCH (09:29)
[2016-12-02] MEDS: QUEtiapine FUMARATE 25 MG TAB PO SCH (10:17)
--- NOTE | 2016-12-02 10:25 | HOSPPROG ---
Hospitalist Progress Note Assessment/Plan: 71-year-old with known Parkinson's disease and said to have aggressive behavior. Since admission his medications have been clarified, given on time AND his behaviors much improved. Placement is difficult as he has alienated personnel at many facilities. Patient continues to do well without complaints we have been unable to obtain placement. # Parkinson's disease: quite advanced disease. Relatively stable on his current medications. Essentially he needs to get them on time before his symptoms recur. # depression: Currently on anti depresses including Effexor and Siligine. # chronic pain: He is on a rational dose of medication for control of his pain. he has a history of a left-sided arm and leg fracture in this is a source of his chronic pain. Pain currently in good control as he is able to ambulate with a walker and ambulate on his own for short distances. # decubitus ulceration of the sacrum: This was present on admission and he is refusing to allow us to treated. Is currently covered with a bandage. Will change the bandage every 2-3 days. This is slowly improving # Abdominal ventral hernia which does not painful or incarcerated. Status post cervical fusion 10/21/16 and doing well. Patient does not reliably wear the cervical collar. -disposition: This is a very difficult social situation as he has alienated himself from any of the SNF and rehab facilities in the area. We will seek placement for this gentleman and see to clarify and perhaps change some of his psychiatric and parkinsonian medication. Perhaps this will improve the gentleman's ability to manage his own emotions and behavior. Note specifically that the gentleman must receive his Parkinson's medications on time. Even a few hours delay results in significant braided kidney cyst from which she takes days to recover. The patient is aware of this and becomes very frustrated if he does not get his medication on time as the bradykinesia is locks him in. Is likely all of his problems at other facilities been secondary to delay and his medications. With medication this gentleman can be quite pleasant interactive and he is very bright and he is not a problem. He becomes frustrated and angry when he does not get his medication on time as he knows that he will suffer Bradykinesis Subjective: No complaints. Patient very difficult to understand T2 mumbling. Objective: Vital Signs Temp Pulse Resp BP Pulse Ox 36.6 C 77 18 113/72 94 12/02/16 08:00 12/02/16 08:00 12/02/16 08:00 12/02/16 08:00 12/02/16 08:00 Laboratory Results 12/01/16 12:54 12/01/16 12:54 12/01/16 12/02/16 12/03/16 05:59 05:59 05:59 Intake Total 300 240 Output Total 390 480 150 Balance -390 -180 90 - Physical Exam Constitutional: no apparent distress, chronically ill appearing Eyes: PERRL Cardiovascular: regular rate and rhythym Respiratory: no respiratory distress Gastrointestinal: normoactive bowel sounds Neurologic: other ( Tremor) ICD10 Worksheet Patient Problems: Problems Problem Status Onset Parkinson disease Acute Aggressive behavior Acute
--- NOTE | 2016-12-02 17:04 | ASMTCMCOM ---
CM Note CM Note Notes: Director of Case Management deposited Pt's check of some $2074 in his checking account at [employer] today. Today SWer met w/ Pt. briefly in his room. Pt. would like to withdraw some $3000 in the form of a money order made out to himself. Pt. would like to use this money to pay off a debt "to a friend" related to housing costs. Director of states [employer] does not provide money orders and Pt. must go himself to retrieve ridley or bank check. Director open to looking into if Pt. can be allowed a brief pass from hospitalization to take care of his affairs. Today SWer spent time on placement options. Spoke w/ Cassandra Hernandez at [facility]. Cassandra supportive and recomended [facility] at various sites in [facility]. Unfortunately after speaking with advertising account representative "Liban" learned that they have a waiting list for Medicaid beds and that they reserve for Pt's who have already been private pay for some time. Liban suggested looking at [facility] - admissions Юлия Jennings. Alexandre left message for her. Await return call. Today Director of Case Management is interviewing Pt. to complete a "-SPDAT" risk assessment/vulnerability index for housing services. Apparently this form can assist in looking at all housing programs in [place] that Pt. may be eligible for. Alexandre also left message for APS worker Rodrigo Reynoso to have her call to know that we have an elderly vulnerable adult here at [facility] and having difficulties placing him. Want to avoid Pt. becoming homeless again. Await return call. Alexandre also left msg for the [place] at [facility] or [phone] to see if they can also bring a receipt that Pt. had for his laptop purchase at [facility]. [place] are supposed to bring Pt's belongings to him at [facility] this week. Alexandre also wrote email message to Chaplain Dela Cruz about Pt's request for dictation device/storyboard link to begin to document his life. YOUSIF/JALEESA to follow. Date Signed: 11/28/2016 05:50 PM Electronically Signed By:Kristan Maynard
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
--- NOTE | 2016-12-02 17:07 | ASMTCMCOM ---
CM Note CM Note Notes: CM made referrals to SNFs. CM awaiting reponse on referrals. CM had pt sign release of information (SHANIKA) for [facility]. CM faxed over SHANIKA to [facility]. Director of Milling Machine Operator spoke with pt at length about dispo planning. CM to follow. Date Signed: 11/30/2016 04:14 PM Electronically Signed By:Isa Penn
--- NOTE | 2016-12-02 17:09 | ASMTCMCOM ---
CM Note CM Note Notes: Therapy stopped by today to let us know pt is interested in going to a Danish speaking [facility]. She suggested calling [facility] [phone] to get resources and info for facilities in [place]. Date Signed: 12/02/2016 03:08 PM Electronically Signed By:Kristan Ivy
[2016-12-02] MEDS: VENLAFAXINE XR 150 MG CAP PO SCH (20:16)
[2016-12-02] MEDS: CARBIDOPA/LEVO CR 50 MG/200 MG TAB PO SCH (22:58)
[2016-12-03] MEDS: CARBIDOPA/LEVODOPA 25 MG/100 MG TAB PO SCH ×4 (07:54→19:49)
[2016-12-03] MEDS: SELEGILINE HCL 5 MG CAP PO SCH (07:54)
[2016-12-03] MEDS: ENTACAPONE 200 MG TAB PO SCH ×3 (07:54→19:49)
[2016-12-03] MEDS: VENLAFAXINE XR 75 MG CAP PO SCH (10:04)
[2016-12-03] MEDS: SENNOSIDES/DOCUSATE SODIUM TAB PO SCH ×2 (10:05→21:16)
[2016-12-03] MEDS: FOLIC ACID 1 MG TAB PO SCH (10:05)
[2016-12-03] MEDS: ENOXAPARIN 40 MG/0.4 ML SYR SC SCH (10:09)
[2016-12-03] MEDS: DICYCLOMINE 10 MG CAP PO SCH ×3 (10:09→21:16)
[2016-12-03] MEDS: QUEtiapine FUMARATE 25 MG TAB PO SCH (10:10)
--- NOTE | 2016-12-03 13:26 | HOSPPROG ---
Hospitalist Progress Note Assessment/Plan: 71-year-old with known Parkinson's disease and said to have aggressive behavior. Since admission his medications have been clarified, given on time AND his behaviors much improved. Placement is difficult as he has alienated personnel at many facilities. Patient continues to do well without complaints we have been unable to obtain placement. Quite tremulous currently # Parkinson's disease: quite advanced disease. Relatively stable on his current medications. Essentially he needs to get them on time before his symptoms recur. * More tremulous today but him reluctant to change his medications given the events disease he has. * I will check a urine to make she does not have a UTI # depression: Currently on anti depresses including Effexor and Siligine. These 2 medications are contraindicated to be used with each other. It is unclear how long he has been on the Effexor although he states it is a new drug. Will wean him off of it by decreasing his dose down the 150 for 4 days 75 for 4 days and then discontinue it completely. # chronic pain: He is on a rational dose of medication for control of his pain. he has a history of a left-sided arm and leg fracture in this is a source of his chronic pain. Pain currently in good control as he is able to ambulate with a walker and ambulate on his own for short distances. # decubitus ulceration of the sacrum: This was present on admission and he is refusing to allow us to treated. Is currently covered with a bandage. Will change the bandage every 2-3 days. This is slowly improving # Abdominal ventral hernia which does not painful or incarcerated. Status post cervical fusion 10/21/16 and doing well. Patient does not reliably wear the cervical collar. -disposition: This is a very difficult social situation as he has alienated himself from any of the SNF and rehab facilities in the area. We will seek placement for this gentleman and see to clarify and perhaps change some of his psychiatric and parkinsonian medication. Perhaps this will improve the gentleman's ability to manage his own emotions and behavior. Note specifically that the gentleman must receive his Parkinson's medications on time. Even a few hours delay results in significant braided kidney cyst from which she takes days to recover. The patient is aware of this and becomes very frustrated if he does not get his medication on time as the bradykinesia is locks him in. Is likely all of his problems at other facilities been secondary to delay and his medications. With medication this gentleman can be quite pleasant interactive and he is very bright and he is not a problem. He becomes frustrated and angry when he does not get his medication on time as he knows that he will suffer Bradykinesis Subjective: Had a BM, is quite tremulous today from his Parkinson's and is questioning his meds. Objective: Vital Signs Temp Pulse Resp BP Pulse Ox 36.8 C 91 18 127/78 H 93 12/03/16 08:00 12/03/16 08:00 12/03/16 08:00 12/03/16 08:00 12/03/16 08:00 Laboratory Results 12/01/16 12:54 12/01/16 12:54 12/02/16 12/03/16 12/04/16 05:59 05:59 05:59 Intake Total 300 240 Output Total 480 750 Balance -180 -510 - Physical Exam Constitutional: chronically ill appearing, uncomfortable Eyes: PERRL Ears, Nose, Mouth, Throat: moist mucous membranes Cardiovascular: regular rate and rhythym Respiratory: no respiratory distress Skin: warm, other (Spells like urine) Neurologic: other (Quite tremulous bilaterally) Psychiatric: anxious ICD10 Worksheet Patient Problems: Problems Problem Status Onset Parkinson disease Acute Aggressive behavior Acute
[2016-12-03] MEDS: VENLAFAXINE XR 150 MG CAP PO SCH (21:16)
[2016-12-03 21:40] LABS: COLOR YELLOW; LEUKOCYTE ESTERASE,URINE NEGATIVE (NEGATIVE); NITRITE,URINE NEGATIVE (NEGATIVE)
[2016-12-03 21:47] LABS: MUCUS TRACE /lpf (NONE-1+)
[2016-12-03] MEDS: CARBIDOPA/LEVO CR 50 MG/200 MG TAB PO SCH (23:06)
[2016-12-04] MEDS: SELEGILINE HCL 5 MG CAP PO SCH (06:33)
[2016-12-04] MEDS: CARBIDOPA/LEVODOPA 25 MG/100 MG TAB PO SCH ×4 (06:33→19:28)
[2016-12-04] MEDS: ENTACAPONE 200 MG TAB PO SCH ×3 (06:33→19:28)
[2016-12-04] MEDS: ACETAMINOPHEN 325 MG TAB PO PRN (06:33)
[2016-12-04] MEDS: SENNOSIDES/DOCUSATE SODIUM TAB PO SCH ×2 (10:00→21:18)
[2016-12-04] MEDS: DICYCLOMINE 10 MG CAP PO SCH ×2 (10:00→15:25)
[2016-12-04] MEDS: FOLIC ACID 1 MG TAB PO SCH (10:00)
[2016-12-04] MEDS: ENOXAPARIN 40 MG/0.4 ML SYR SC SCH (10:02)
[2016-12-04] MEDS: QUEtiapine FUMARATE 25 MG TAB PO SCH (10:02)
--- NOTE | 2016-12-04 12:59 | HOSPPROG ---
Hospitalist Progress Note Assessment/Plan: 71-year-old with known Parkinson's disease and said to have aggressive behavior. Since admission his medications have been clarified, given on time AND his behaviors much improved. Placement is difficult as he has alienated personnel at many facilities. Patient continues to do well without complaints we have been unable to obtain placement. Quite tremulous currently # Parkinson's disease: quite advanced disease. Relatively stable on his current medications. Essentially he needs to get them on time before his symptoms recur. * More tremulous today but him reluctant to change his medications given the events disease he has. * I will check a urine to make she does not have a UTI # depression: Currently on anti depresses including Effexor and Siligine. These 2 medications are contraindicated to be used with each other. It is unclear how long he has been on the Effexor although he states it is a new drug. Will wean him off of it by decreasing his dose down the 150 for 4 days 75 for 4 days and then discontinue it completely. patient does not wish to wean off of it, he wants to stop it altogether and is currently refusing the a medication * DC Effexor, would rather try to wean him off of it but patient is refusing * patient refusing Seroquel, he is agreeable to restarting it should he worsen from mental status standpoint. # chronic pain: He is on a rational dose of medication for control of his pain. he has a history of a left-sided arm and leg fracture in this is a source of his chronic pain. Pain currently in good control as he is able to ambulate with a walker and ambulate on his own for short distances. # decubitus ulceration of the sacrum: This was present on admission and he is refusing to allow us to treated. Is currently covered with a bandage. Will change the bandage every 2-3 days. This is slowly improving # Abdominal ventral hernia which does not painful or incarcerated. Status post cervical fusion 10/21/16 and doing well. Patient does not reliably wear the cervical collar. -disposition: This is a very difficult social situation as he has alienated himself from any of the SNF and rehab facilities in the area. We will seek placement for this gentleman and see to clarify and perhaps change some of his psychiatric and parkinsonian medication. Perhaps this will improve the gentleman's ability to manage his own emotions and behavior. Note specifically that the gentleman must receive his Parkinson's medications on time. Even a few hours delay results in significant braided kidney cyst from which she takes days to recover. The patient is aware of this and becomes very frustrated if he does not get his medication on time as the bradykinesia is locks him in. Is likely all of his problems at other facilities been secondary to delay and his medications. With medication this gentleman can be quite pleasant interactive and he is very bright and he is not a problem. He becomes frustrated and angry when he does not get his medication on time as he knows that he will suffer Bradykinesis Objective: Vital Signs Temp Pulse Resp BP Pulse Ox 36.8 C 79 18 123/81 H 94 12/04/16 10:41 12/04/16 10:41 12/04/16 10:41 12/04/16 10:41 12/04/16 10:41 Laboratory Results 12/01/16 12:54 12/01/16 12:54 12/03/16 12/04/16 12/05/16 05:59 05:59 05:59 Intake Total 240 240 Output Total 750 350 Balance -510 -110 - Physical Exam Constitutional: no apparent distress, chronically ill appearing, unkempt Psychiatric: interacting appropriately, flat affect ICD10 Worksheet Patient Problems: Problems Problem Status Onset Parkinson disease Acute Aggressive behavior Acute
--- NOTE | 2016-12-04 17:21 | ASMTCMCOM ---
CM Note CM Note Notes: New d/c plan per Yodit Stauffer, Director of CM. Patient to be d/c'ed to the [facility] for 7 days. [facility] confirmation number is [id number]. Reservations made starting 12-05-16. Patient to get his meals from [facility]. Called [facility] [facility] and left a message but have not heard back from them.([phone]) They will need to be contacted tomorrow. Sent referrals to [facility]. Awaiting their response. Patient will also need a f/u appointment with [facility]. Patient will need to be given a taxi voucher at d/c to take him to the [facility] on [address] [place] [address]. Attempted to discuss new plan with patient but he was asleep. Yodit Stauffer will need to be notified when everything is in place and patient is d/c'ing so she can alert patient's manager case with the homeless longterm . The longterm cm will need to follow the patient and help him locate a permanent solution to his housing issues. CM will follow. Date Signed: 12/04/2016 05:21 PM Electronically Signed By:Porsha Harris LCSW
[2016-12-04] MEDS: VENLAFAXINE XR 150 MG CAP PO SCH (21:47)
[2016-12-05] MEDS: CARBIDOPA/LEVO CR 50 MG/200 MG TAB PO SCH (00:01)
[2016-12-05] MEDS: DICYCLOMINE 10 MG CAP PO SCH ×3 (00:01→14:49)
[2016-12-05] MEDS: SELEGILINE HCL 5 MG CAP PO SCH (06:21)
[2016-12-05] MEDS: CARBIDOPA/LEVODOPA 25 MG/100 MG TAB PO SCH ×3 (06:22→14:48)
[2016-12-05] MEDS: ENTACAPONE 200 MG TAB PO SCH ×2 (06:22→11:11)
[2016-12-05 09:21] VITALS: BP 122/67; PULSE 74; RESP 14; TEMP 98.1; O2SAT 94
[2016-12-05] MEDS: FOLIC ACID 1 MG TAB PO SCH (09:22)
[2016-12-05] MEDS: SENNOSIDES/DOCUSATE SODIUM TAB PO SCH (09:22)
[2016-12-05] MEDS: QUEtiapine FUMARATE 25 MG TAB PO SCH (09:22)
[2016-12-05] MEDS: ENOXAPARIN 40 MG/0.4 ML SYR SC SCH (09:23)
--- NOTE | 2016-12-05 13:58 | PDDCSUM ---
Discharge Summary Discharge Summary: DISCHARGE DIAGNOSES: -Parkinsons disease -orthostatic hypotension -personality disorder HOSPITAL COURSE SUMMARY: This patient who is chronically severely debilitated by Parkinson's disease and orthostatic hypotension and also hindered by personality disorder, was transferred here to the ER from a local nursing facility as they were unable to manage him with aggressive behaviors there. On reviewing his history and medical records from numerous other facilities in the area is clear that he has essentially burned his bridges at several hospitals and nursing facilities due to difficult interactions with staff including some aggression. There was no acute medical illness at the time of his transfer here nor did he have any symptoms or signs of acute medical illness here in the hospital. He was admitted to this hospital because we essentially had no place to send him. The patient actually had very congenial interactions with staff at almost all occasions here, and there was no aggressive behavior. We did have some issues around the timing of his medications for Parkinson's which we settled in that made things much easier for him. In addition the patient had elsewhere been prescribed Seroquel but refused to take that here as he felt it did not help him and did not have a good safety profile for him which was essentially correct. That medicine was not given to him during his stay here and he did fine without it. We continued his other anti Parkinson's medicines. He has some chronic pain issues and chronically prescribed pain medication but he did not use any pain medicines here in the hospital. We made extensive efforts over a period of a couple weeks to find a nursing facility that could help manage his issues. He has no family able or willing to help him and no other support in the community. We are unable really to find any kind of supportive setting or ongoing care scenario for him. When upset going on was getting him a hotel room for the 7 days following discharge patient for by the hospital, along with prescriptions, on appointment with a new primary care physician, and some outpatient physical therapy and nursing care to check on him while he is in the hotel. The on that he will need to arrange for other help. We are having local social work associate from the [facility] in [facility] help to find better living situation for him. They are engaged to visit him at his hotel room. PENDING TEST RESULTS: None MEDICATION CHANGES: Cervical as been discontinued and should not be restarted FOLLOW-UP PLAN: He has an appointment tomorrow with a new primary care physician that has been arranged Greater than 35 minutes bedside and care coordination time today
--- NOTE | 2016-12-05 14:07 | PDIAF ---
- Diagnosis Diagnosis: parkinsons disease, gait instability, personality disorder,sacral decubitis Code Status: Full Code - Medication Management Discharge Medications: Medications to Continue on Transfer Carbidopa/Levodopa 25/100Mg [Sinemet 25/100 MG (*)] 1.5 tab PO QID@07,,,11/17/16 [Last Taken Unknown] Dicyclomine [Bentyl 10 MG (*)] 10 mg PO TID 11/17/16 [Last Taken Unknown] Entacapone [Comtan] 200 mg PO TID@,,11/17/16 [Last Taken Unknown] Selegiline HCl [Eldepryl 5mg (*)] 5 mg PO DAILY@0711/17/16 [Last Taken Unknown] Venlafaxine Xr [Effexor Xr 75MG (*)] 75 mg PO DAILY 11/17/16 [Last Taken Unknown ] Venlafaxine Xr [Effexor Xr] 150 mg PO HS 11/17/16 [Last Taken Unknown] Carbidopa/Levo Cr 50/200Mg [SINEMET CR 50/200 MG (*)] 1 tab PO DAILY@2300 [Last Taken Unknown] Discharge Medications: Refer to the Discharge Home Medication list for PRN reason. - Orders Services needed: Home Care, Registered Nurse, Master Clinic Lead, Physical Therapy Home Care Face to Face: I certify that this patient was under my care and that I had the required [id number] encounter meeting the encounter requirements on the discharge day. My findings support the fact that the patient is homebound as defined in CMS Chapter 7 Medicare Benefits Manual 30.1.1, The condition of the patient is such that there exists a normal inability to leave home and consequently, leaving home would require a considerable and taxing effort. Diet Recommendation: no restrictions on diet Diet Texture: Regular Texture Diet Wound Care Instructions: Pt has been declining wound care for sacral ulcer in hospital; have placed simple bandages; continue to keep clean or other wound care as he will allow Activity/Weight Bearing Restrictions: as able and tolerated Equipment: wheelchair - Follow Up Care Current Providers and Referrals: Patient,NotPresent [Primary Care Provider] - As per Instructions
--- NOTE | 2016-12-05 16:28 | ASMTCMCOM ---
CM Note CM Note Notes: Pt is being discharged today. CM set up [facility] that will start on Saturday. After 5 days of complimentary meals pt will pay a dollar a day. Pt will also be getting frozen meals for the weekend. Pt is discharging to [facility]. Pt has been denied at [facility]. JALEESA spoke w/ Lavonne at [facility] to set up PT, RN, social work, HC. Oliva, Manger of Case Management and Yodit, Director of Case Management has been consulting on this case. Yodit provided pt with taxi vouchers for transport. Appointment set up with [facility] for tomorrow with Dr. Sonali Santoyo at 9:50AM, F#: [phone]. JALEESA provided pt with clothing from donations. Orders sent to [facility]. Date Signed: 12/05/2016 04:27 PM Electronically Signed By:ISAEL Gr
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
[2016-12-07] MEDS ORDERED: VENLAFAXINE XR 75 MG CAP PO SCH (21:00)
== END 2016-12-05 15:37 | disposition home or self-care (01) | DRG 883 ==
LOC: EDUNIT# → F3N 11-17 02:14 → OBSVTOIN 11-17 05:56 → F3N 11-17 22:17 → F3E 11-21 17:02
PROVIDERS: ADMIT Internal Medicine; ATTEND Internal Medicine
DX: F60.9 Personality disorder, unspecified (principal); G20 Parkinson's disease; I95.1 Orthostatic hypotension; R62.7 Adult failure to thrive; K43.9 Ventral hernia without obstruction or gangrene; L89.159 Pressure ulcer of sacral region, unspecified stage; Z98.1 Arthrodesis status; Z99.3 Dependence on wheelchair; Z59.0 Homelessness; Z72.0 Tobacco use
CPT/HCPCS: 80305; 97110-GO; 97110-GP; 97116-GP; 97162-GP; 97167-GO; 97530-GP; 97535-GO; G0480; G8978-GP-CK; G8979-GP-CI; G8979-GP-CJ; G8987-GO-CL; G8988-GO-CI; J1650

== ENCOUNTER 2016-12-08 20:28 | Emergency (ER) | payer OTHER, MEDICAID ==
[2016-12-08 20:40] VITALS: BP 156/102; PULSE 99; RESP 16; TEMP 99.5; O2SAT 94
[2016-12-08] MEDS ORDERED: CARBIDOPA/LEVODOPA 25 MG/100 MG TAB PO ONE (21:18)
--- NOTE | 2016-12-08 21:18 | EDPHY ---
H & P Stated Complaint: Abrasion to hands and med refill Source: Patient Exam Limitations: No limitations - Personal History Current Tetanus/Diphtheria Vaccine: Yes Current Tetanus Diphtheria and Acellular Pertussis (TDAP): Yes Tetanus Vaccine Date: < 10 years - Medical/Surgical History Hx Asthma: No Hx Chronic Respiratory Disease: No Hx Diabetes: No Hx Cardiac Disease: No Hx Renal Disease: No Hx Cirrhosis: No Hx Alcoholism: Yes Hx HIV/AIDS: No Hx Splenectomy or Spleen Trauma: No Other PMH: Parkinson's, Orthostatic hypotension, syncope, alcohol withdrawl. mental health issues. - Social History Smoking Status: Current some day smoker HPI/ROS: CHIEF COMPLAINT: Abrasions, medication refill HISTORY OF PRESENT ILLNESS: Patient has 2 complaints. The 1st is abrasions to his hands and wrist. He says he sustained these when he was arrested earlier today. Says the handcuffs scraped his hands and would like this documented. They are minimally painful. Second complaint is that he lost his medications that he was arrested. This includes the medications that are listed below. He is asking for refills of these. He has no other complaints. No other associated complaints or modifying factors. REVIEW OF SYSTEMS: Ten systems reviewed and are negative unless otherwise noted in the HPI PAST MEDICAL HISTORY: Parkinson's disease, hypertension Medications were reviewed and are documented below. PAST SURGICAL HISTORY: Reviewed SOCIAL HISTORY: Nonsmoker. Currently homeless and limited longterm FAMILY HISTORY: Noncontributory EXAMINATION General Appearance: Alert, no distress, unkempt. Seated in a wheelchair Head: normocephalic, atraumatic Eyes: Pupils equal and round, no conjunctival pallor or injection ENT, Mouth: Mucous membranes moist. Airway patent Respiratory: No retractions or distress. Cardiovascular: Regular rate pulses intact distally Back: non-tender, no bony abnormalities Neurological: GCS 15 A&O, nonfocal, resting pill tremor Skin: Warm and dry, no rash. Superficial abrasions to the dorsum of the hands and wrists bilaterally. No lacerations Extremities: Nontender, no pedal edema. Symmetric range of motion. No snuffbox tenderness. Psychiatric: Mood and affect normal DIFFERENTIAL DIAGNOSES: Including but not limited to Parkinson's disease, medication refill, abrasions MDM: 9:15 p.m. Patient reports being out of his medications, thus include Sinemet 25/100 mg, 1.5 tab four times daily. Entacapone 200mg 3 times daily. Sinemet 50/201 tab daily at 2300. I told him that I am not comfortable writing these prescriptions as these are complex medications the knee be monitor closely. He is to follow up with rehabilitation caseworker tomorrow or primary care physician for further prescriptions. He is comfortable with this plan and discharged home stable condition. (Jean Bhatti) Constitutional: Initial Vital Signs Temperature (C) 37.5 C 12/08/16 20:38 Heart Rate 99 12/08/16 20:38 Respiratory Rate 16 12/08/16 20:38 Blood Pressure 156/102 H 12/08/16 20:38 O2 Sat (%) 94 12/08/16 20:38 O2 Delivery Mode Room Air Allergies/Adverse Reactions: quetiapine [From Seroquel] Allergy (Verified 11/16/16 22:36) Home Medications: Medication Instructions Recorded Carbidopa/Levodopa 25/100Mg 1.5 tab PO QID@07,,,11/17/16 [Sinemet 25/100 MG (*)] Dicyclomine [Bentyl 10 MG (*)] 10 mg PO TID 11/17/16 Entacapone [Comtan] 200 mg PO TID@07,,19 11/17/16 Selegiline HCl [Eldepryl 5mg (*)] 5 mg PO DAILY@0700 11/17/16 Venlafaxine Xr [Effexor Xr 75MG 75 mg PO DAILY 11/17/16 (*)] Venlafaxine Xr [Effexor Xr] 150 mg PO HS 11/17/16 Carbidopa/Levo Cr 50/200Mg 1 tab PO DAILY@2300 11/18/16 [SINEMET CR 50/200 MG (*)] Medical Decision Making ED Course/Re-evaluation: The patient was evaluated and managed by the physician special education assistant. I have reviewed this chart and I agree with the findings and plan of care as documented , as indicated by my signature. I am the secondary supervising physician. ( Jacque Johnson) - Data Points Medications Given: Discontinued Medications Carbidopa/Levodopa (Sinemet Cr 50/200) 1 tab PO BID MARYJO Stop: 06/06/17 21:29 Last Admin: 12/08/16 21:58 Dose: Not Given Carbidopa/Levodopa (Sinemet) 1.5 tab PO EDNOW ONE Stop: 12/08/16 21:19 Last Admin: 12/08/16 21:58 Dose: Not Given Entacapone (Comtan) 200 mg PO EDNOW ONE Stop: 12/08/16 21:31 Last Admin: 12/08/16 21:57 Dose: 200 mg Departure - Departure Disposition: Home, Routine, Self-Care Clinical Impression: Parkinson disease, Medication refill Condition: Good Instructions: Parkinson Disease (ED), Medicine Refill (ED) Additional Instructions: 1. Follow up with case management primary care physician for refills of your further medication Referrals: NONE *PRIMARY CARE P,. [Primary Care Provider] - As per Instructions [facility],. [Clinic] - As per Instructions Tonja Landeros MD [Medical Doctor] - As per Instructions
[2016-12-08] MEDS ORDERED: CARBIDOPA/LEVO CR 50 MG/200 MG TAB PO SCH (21:30)
[2016-12-08] MEDS ORDERED: ENTACAPONE 200 MG TAB PO ONE (21:30)
== END 2016-12-08 21:59 | disposition home or self-care (01) ==
DX: G20 Parkinson's disease (principal); W22.8XXA Striking against or struck by other objects, initial encounter; I10 Essential (primary) hypertension; Y99.8 Other external cause status; F17.200 Nicotine dependence, unspecified, uncomplicated; Y93.89 Activity, other specified; Z76.0 Encounter for issue of repeat prescription

== ENCOUNTER 2016-12-20 15:07 | Emergency (ER) | payer OTHER, MEDICAID ==
--- NOTE | 2016-12-20 15:49 | EDPHY ---
H & P Time Seen by Provider: 12/20/16 15:34 HPI/ROS: CHIEF COMPLAINT: here for welfare check HISTORY OF PRESENT ILLNESS: 71-year-old male with a history of advanced Parkinson's disease and aggressive behavior presents for shakiness. He was at the bank today and the banking staff noticed that he had tremors in his upper extremities. They called the police to do a welfare check on the patient. They found be very shaky and brought him to the emergency department for further evaluation. The patient denies any recent changes and states that he always shakes. He is asking for our case management director, Yodit. He was admitted from through 12/05/2016 for per consents and associated aggressive behavior. He was discharged to home. He then presented to [facility] on 12/14/2016 and was admitted. They were unable to place him because of aggressive behavior and he was discharged to the street. This morning he went to the [facility] emergency department and had his Sinemet refilled and received a prescription for Tylenol. He was again discharged to the street. REVIEW OF SYSTEMS: Constitutional: No fever, no chills Eyes: No visual changes ENT: No sore throat Respiratory: No cough, no shortness of breath Cardiac: No chest pain Gastrointestinal: no vomiting, no abdominal pain Genitourinary: no dysuria Musculoskeletal: No leg pain or swelling Skin: No rash Neurological: No headache Psychiatric: Anxiety Past Medical/Surgical History: Advanced Parkinson's disease Social History: Homeless Smoking Status: Current some day smoker Physical Exam: General Appearance: Alert, mumbling speech, not agitated right now Eyes: Pupils equal and round, no conjunctival pallor or injection ENT, Mouth: Mucous membranes moist Neck: Normal inspection Respiratory: Lungs are clear to auscultation Cardiovascular: Regular rate and rhythm Gastrointestinal: Abdomen is soft and nontender Neurological: is alert, resting tremor of the upper extremities, nonfocal exam Skin: Warm and dry Extremities: normal inspection Psychiatric: Mood and affect normal Constitutional: Initial Vital Signs Temperature (C) 36.6 C 12/20/16 15:16 Heart Rate 118 H 12/20/16 15:16 Respiratory Rate 20 12/20/16 15:16 Blood Pressure 240/128 H 12/20/16 15:16 O2 Sat (%) 94 12/20/16 15:16 O2 Delivery Mode Room Air Allergies/Adverse Reactions: quetiapine [From Seroquel] Allergy (Verified 12/20/16 15:16) Home Medications: Medication Instructions Recorded Carbidopa/Levodopa 25/100Mg 1.5 tab PO QID@07,,,11/17/16 [Sinemet 25/100 MG (*)] Dicyclomine [Bentyl 10 MG (*)] 10 mg PO TID 11/17/16 Entacapone [Comtan] 200 mg PO TID@,,11/17/16 Selegiline HCl [Eldepryl 5mg (*)] 5 mg PO DAILY@0700 11/17/16 Venlafaxine Xr [Effexor Xr 75MG 75 mg PO DAILY 11/17/16 (*)] Venlafaxine Xr [Effexor Xr] 150 mg PO HS 11/17/16 Carbidopa/Levo Cr 50/200Mg 1 tab PO DAILY@2300 11/18/16 [SINEMET CR 50/200 MG (*)] Medical Decision Making ED Course/Re-evaluation: This patient has no acute complaints today. He is requesting the case management director. manager site saw the patient and has given the patient a taxi voucher to go to the snf. Departure - Departure Disposition: Home, Routine, Self-Care Clinical Impression: Parkinson disease, Aggressive behavior Condition: Good Instructions: Parkinson Disease (ED) Additional Instructions: Go directly to the snf. Follow-up with your primary care physician in 1-2 days. Referrals: [facility],. [Clinic] - As per Instructions
[2016-12-20 16:52] VITALS: BP 133/78; PULSE 78; RESP 18; TEMP 98.2; O2SAT 95
--- NOTE | 2016-12-20 17:33 | ASMTCMCOM ---
CM Note CM Note Notes: When medically cleared, Dash was given a cab voucher to the Half-Way. The [facility] bed was reserved for him. On his last admission, a screening was completed to get him into the housing cue in [facility]. The Director of the [facility] met with Dash to complete an application for housing and resources. He does meet the criteria for perminent supportive housing. Date Signed: 12/20/2016 05:32 PM Electronically Signed By:Yodit Stauffer RN
== END 2016-12-20 17:09 | disposition home or self-care (01) ==
DX: F91.8 Other conduct disorders (principal); G20 Parkinson's disease; F17.200 Nicotine dependence, unspecified, uncomplicated

== ENCOUNTER 2016-12-22 04:29 | Inpatient (IN) | payer OTHER, MEDICAID ==
[2016-12-22 06:23] LABS: % IMMATURE GRANULYOCYTES 0.1 % (0.0-1.1); ABSOLUTE IMMATURE GRANULOCYTES 0.01 10^3/uL (0.00-0.10); ADD DIFF? NO; ADD MORPH? NO; ADD SCAN? NO; ATYPICAL LYMPHOCYTE FLAG 0 (0-99); FRAGMENT RBC FLAG 0 (0-99); HEMATOCRIT 39.1 % (40.0-51.0); HEMOGLOBIN 12.5 g/dL (13.7-17.5); LEFT SHIFT FLG 0 (0-99); LIPEMIA HEMOLYSIS FLAG 80 (0-99); MEAN CELL HEMOGLOBIN 29.9 pg (27.9-34.1); MEAN CELL VOLUME 93.5 fL (81.5-99.8); MEAN PLATELET VOLUME 9.3 fL (8.7-11.7); PLATELET CLUMPS FLAG 0 (0-99); PLATELET COUNT 242 10^3/uL (150-400); RED BLOOD CELL COUNT 4.18 10^6/uL (4.40-6.38); RED CELL DISTRIBUTION WIDTH 13.4 % (11.5-15.2)
[2016-12-22 06:45] LABS: ALANINE AMINOTRANSFERASE 20 IU/L (21-72); ALBUMIN 3.6 g/dL (3.5-5.0); ALKALINE PHOSPHATASE 61 IU/L (38-126); ANION GAP 11 mEq/L (8-16); ASPARTATE AMINOTRANSFERASE 18 IU/L (17-59); BILIRUBIN,TOTAL 0.3 mg/dL (0.1-1.4); CALCIUM 9.8 mg/dL (8.5-10.4); CARBON DIOXIDE 25 mEq/l (22-31); CHLORIDE 108 mEq/L (97-110); CREATININE 0.9 mg/dL (0.7-1.3); GLOMERULAR FILTRATION RATE > 60; GLUCOSE 116 mg/dL (70-100); POTASSIUM 4.1 mEq/L (3.5-5.2); SODIUM 144 mEq/L (134-144); TOTAL PROTEIN 7.1 g/dL (6.3-8.2)
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
[2016-12-22] MEDS ORDERED: ACETAMINOPHEN 325 MG TAB PO ONE (08:40)
[2016-12-22] MEDS ORDERED: ACETAMINOPHEN 325 MG TAB ONE (08:41)
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
[2016-12-22] MEDS ORDERED: ONDANSETRON DISINTEGRATING 4 MG TAB PO PRN (12:40)
[2016-12-22] MEDS ORDERED: ONDANSETRON 4 MG/2 ML VIAL IVP PRN (12:40)
[2016-12-22] MEDS ORDERED: ACETAMINOPHEN 325 MG TAB PO PRN (12:40)
[2016-12-22 13:40] LABS: COLOR YELLOW; LEUKOCYTE ESTERASE,URINE NEGATIVE (NEGATIVE); NITRITE,URINE NEGATIVE (NEGATIVE)
--- NOTE | 2016-12-22 15:17 | ASMTCMCOM ---
CM Note CM Note Notes: Contact made with Matilde at [facility] [phone]. Facility accepts Medicare/Medicaid and is preliminary "good fit" for dementia and parkinson's disease stabilization They have CM team that would work on half-way solutions and placement for this pt. Need for proxy or power of lathe set up operator to be accepted. Matilde to email proxy information. If proxy is possible fax to [phone] psychiatrist will provide an answer by Saturday. Date Signed: 12/22/2016 03:16 PM Electronically Signed By:Daisy Perkins LCSW
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
[2016-12-22] MEDS: DICYCLOMINE 10 MG CAP PO SCH ×2 (16:14→23:14)
[2016-12-22] MEDS: CARBIDOPA/LEVODOPA 25 MG/100 MG TAB PO SCH ×2 (16:20→19:54)
--- NOTE | 2016-12-22 16:42 | ASMTCMCOM ---
CM Note CM Note Notes: Please see ED Alexandre's notes from today. Pt. has extensive history working with Case Management on community living [facility]. Pt. notably hard to place due to his behaviors at multiple facilities. Alexandre notified CM Director of Pt's readmission. Director gave number of david Santamaria . Plan is to try to contact more relatives in search for d/c solution. CMs to follow for d/c POC. Date Signed: 12/22/2016 04:41 PM Electronically Signed By:Kristan Maynard LCSW
[2016-12-22] MEDS: ENTACAPONE 200 MG TAB PO SCH ×2 (18:15→19:54)
[2016-12-22] MEDS ORDERED: VENLAFAXINE XR 150 MG CAP PO SCH (21:00)
[2016-12-22] MEDS: CARBIDOPA/LEVO CR 50 MG/200 MG TAB PO SCH (23:14)
[2016-12-23] MEDS ORDERED: SELEGILINE HCL 5 MG CAP PO SCH (07:00)
[2016-12-23] MEDS: DICYCLOMINE 10 MG CAP PO SCH ×3 (08:19→21:22)
[2016-12-23] MEDS: CARBIDOPA/LEVODOPA 25 MG/100 MG TAB PO SCH ×4 (08:19→21:22)
[2016-12-23] MEDS: ENOXAPARIN 40 MG/0.4 ML SYR SC SCH (08:27)
[2016-12-23] MEDS: ENTACAPONE 200 MG TAB PO SCH ×3 (08:54→21:22)
[2016-12-23] MEDS ORDERED: VENLAFAXINE XR 75 MG CAP PO SCH (09:00)
--- NOTE | 2016-12-23 13:45 | HOSPPROG ---
Hospitalist Progress Note Assessment/Plan: 71 yo M with PMH of PD and chronic debilitation related to same presented to ED with finger abrasion. Admitted for assistance in placement as patient has not been able to execute self care. # Failure to thrive: patient chronically debilitated from Parkinson's disease to the extent where he is unable to care for his basic needs and remain safe. care is complicated as pt is discharged from various SNFs due to behavioral issue leading to a cycle of incarceration and presentation to the hospital. 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 Will resume his home medication regimen # recent cervical fusion: patient with odontoid fracture of indeterminate age recently found at [facility] (in September), was treated with fusion # personality disorder: he has had multiple psych evals over the last several months, all of which have essentially concluded that he likely has a personality disorder rather than any axis 1 psychiatric illness complicating his care. requests to stop Effexor as he feels that is making him weaker/ will stop it now # homelessness: as above # IP status, will need > 48 hours stay for eval/mgmt of above given his complicated psychosocial history leading to difficulty obtaining safe discharge plan for this man #. wounds: various wounds with eschar present/ have requested wound care consult #. DVT ppx: started on Enoxaparin Subjective: No complaints. Requests Ensure and would like to be off of Effexor as he feels it makes him weaker. Objective: Vital Signs Temp Pulse Resp BP Pulse Ox 97.8 F 63 18 146/91 H 90 L 12/23/16 08:00 12/23/16 08:00 12/23/16 08:00 12/23/16 08:00 12/23/16 08:00 12/22/16 12/23/16 12/24/16 05:59 05:59 05:59 Intake Total 1300 Output Total 1450 300 Balance -150 -300 - Physical Exam Constitutional: no apparent distress, unkempt Ears, Nose, Mouth, Throat: moist mucous membranes, hearing normal Cardiovascular: regular rate and rhythym, no murmur, rub, or gallop Respiratory: no respiratory distress, no rales or rhonchi Neurologic: AAOx3 ICD10 Worksheet Patient Problems: Problems Problem Status Onset Aggressive behavior Acute Hand abrasion Acute Parkinson disease Acute Parkinson's disease dementia Acute
--- NOTE | 2016-12-23 16:05 | ASMTCMCOM ---
CM Note CM Note Notes: Received call from Isa at [facility] [phone]. Apparently ED CM made referral. [facility] is private pay only - Isa does not expect a call back if pt unable to privately pay for care. CM located pt's personal wheelchair with ED CM and brought it to pt. His RN will label it so he doesn't lose it again. He had a [facility] w/c when police brought him in and they took it away from him - not sure how he ended up with it. CM to follow for placement. Date Signed: 12/23/2016 04:04 PM Electronically Signed By:JAMES Gan
[2016-12-24] MEDS: CARBIDOPA/LEVO CR 50 MG/200 MG TAB PO SCH ×2 (00:16→23:46)
[2016-12-24] MEDS: ENTACAPONE 200 MG TAB PO SCH ×4 (06:06→20:05)
[2016-12-24] MEDS: SELEGILINE HCL 5 MG CAP PO SCH ×2 (06:06→07:27)
[2016-12-24] MEDS: CARBIDOPA/LEVODOPA 25 MG/100 MG TAB PO SCH ×4 (07:25→20:05)
[2016-12-24] MEDS: DICYCLOMINE 10 MG CAP PO SCH ×3 (10:46→23:46)
[2016-12-24] MEDS: ENOXAPARIN 40 MG/0.4 ML SYR SC SCH (10:47)
--- NOTE | 2016-12-24 15:22 | HOSPPROG ---
Hospitalist Progress Note Assessment/Plan: 71 yo M with PMH of PD and chronic debilitation related to same presented to ED with finger abrasion. Admitted for assistance in placement as patient has not been able to execute self care. First encounter, chart reviewed. D/W CM at length. # Failure to thrive: patient chronically debilitated from Parkinson's disease to the extent where he is unable to care for his basic needs and remain safe. care is complicated as pt is discharged from various SNFs due to behavioral issue leading to a cycle of incarceration and presentation to the hospital. 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 Will resume his home medication regimen # recent cervical fusion: patient with odontoid fracture of indeterminate age recently found at [facility] (in September), was treated with fusion # personality disorder: he has had multiple psych evals over the last several months, all of which have essentially concluded that he likely has a personality disorder rather than any axis 1 psychiatric illness complicating his care. requests to stop Effexor as he feels that is making him weaker/ will stop it now # homelessness: as above # IP status, will need > 48 hours stay for eval/mgmt of above given his complicated psychosocial history leading to difficulty obtaining safe discharge plan for this man #. wounds: various wounds with eschar present/ have requested wound care consult #. DVT ppx: started on Enoxaparin Subjective: up in chair. No pain. confusion. Objective: Vital Signs Temp Pulse Resp BP Pulse Ox 36.5 C 99 18 110/77 94 12/24/16 08:04 12/24/16 08:04 12/24/16 08:04 12/24/16 08:04 12/24/16 08:04 12/23/16 12/24/16 12/25/16 05:59 05:59 05:59 Intake Total 1300 Output Total 1450 625 Balance -150 -625 - Physical Exam Constitutional: no apparent distress, not in pain, chronically ill appearing Eyes: PERRL, anicteric sclera, EOMI Ears, Nose, Mouth, Throat: moist mucous membranes, hearing normal, ears appear normal Cardiovascular: No JVD, No tachycardia, No edema Respiratory: no respiratory distress, no rales or rhonchi, reduced air movement Gastrointestinal: No tenderness, No ascites, No guarding Skin: warm, normal color, No erythema Musculoskeletal: no joint effusions, abnormal gait, generalized weakness Neurologic: No AAOx3 Psychiatric: not anxious, poor insight, poor judgement, poor memory, No thought process linear ICD10 Worksheet Patient Problems: Problems Problem Status Onset Parkinson disease Acute Aggressive behavior Acute Hand abrasion Acute Parkinson's disease dementia Acute
--- NOTE | 2016-12-24 17:36 | ASMTCMCOM ---
CM Note CM Note Notes: Reviewed pt's chart, spoke to hospitalist, and CM director Yodit Malik Rec'd calls back from 2 DIAZ's today that CM over weekend made referrals to however seems that pt may need more of a LTC or possibly temporary geripsych placement. CM over weekend talked w/SUKUMAR Mcdonald and I spoke again today w/Liset([phone]) from [facility]- they had not rec'd referral; referral sent today. Met w/pt to discuss, conversation was difficult; pt denied having a neice when i asked him about her. CM w/f. Date Signed: 12/24/2016 05:36 PM Electronically Signed By:Daya Glez RN
[2016-12-24] MEDS ORDERED: LACTULOSE 20 GM/30 ML UDCUP PO PRN (17:55)
[2016-12-24] MEDS ORDERED: POLYETHYLENE GLYCOL 3350 17 GM PKT PO PRN (17:55)
[2016-12-24] MEDS ORDERED: MAGNESIUM HYDROXIDE 30 ML UDCUP PO PRN (17:55)
[2016-12-24] MEDS: OXYCODONE/APAP 5/325 TAB PO PRN (18:17)
[2016-12-24] MEDS: BISACODYL 10 MG SUPP PR PRN (18:22)
[2016-12-24] MEDS: SENNOSIDES/DOCUSATE SODIUM TAB PO SCH (19:15)
[2016-12-25] MEDS: SENNOSIDES/DOCUSATE SODIUM TAB PO SCH ×3 (00:07→21:15)
--- NOTE | 2016-12-25 08:42 | HOSPPROG ---
Hospitalist Progress Note Assessment/Plan: 71 yo M with PMH of PD and chronic debilitation related to same presented to ED with finger abrasion. Admitted for assistance in placement as patient has not been able to execute self care. First encounter, chart reviewed. # Failure to thrive Secondary from Parkinson's He is chronically debilitated from this and is unable to do basic care Has had some issues of behavioral issues # PD: advanced and quite debilitated related to same, wheelchair bound on his home medication regimen # recent cervical fusion: patient with odontoid fracture of indeterminate age recently found at [facility] (in September), was treated with fusion # personality disorder: he has had multiple psych evals over the last several months, all of which have essentially concluded that he likely has a personality disorder rather than any axis 1 psychiatric illness complicating his care. requests to stop Effexor as he feels that is making him weaker/ will stop it now # homelessness: as above # IP status, will need > 48 hours stay for eval/mgmt of above given his complicated psychosocial history leading to difficulty obtaining safe discharge plan #. wounds: various wounds with eschar present/ have requested wound care consult #. constipation patient requesting a Dulcolax suppository #. DVT ppx: started on Enoxaparin #. Plan: Ethics consult ordered to evaluate patient's decisional status/ he may need someone in the court system to be his proxy Subjective: Breezy is upset about losing large amounts of money. Objective: Vital Signs Temp Pulse Resp BP Pulse Ox 36.7 C 73 16 125/79 H 95 12/24/16 23:52 12/24/16 23:52 12/24/16 23:52 12/24/16 23:52 12/24/16 23:52 12/24/16 12/25/16 12/26/16 05:59 05:59 05:59 Intake Total 100 Output Total 625 250 Balance -625 -150 - Physical Exam Constitutional: no apparent distress, not in pain, chronically ill appearing Eyes: PERRL Ears, Nose, Mouth, Throat: hearing normal Respiratory: no respiratory distress Skin: warm Musculoskeletal: generalized weakness Neurologic: other (alert but is tangential and hard to have him focus on any one topic) Psychiatric: poor insight, poor judgement ICD10 Worksheet Patient Problems: Problems Problem Status Onset Aggressive behavior Acute Hand abrasion Acute Parkinson disease Acute Parkinson's disease dementia Acute
[2016-12-25] MEDS: DICYCLOMINE 10 MG CAP PO SCH ×3 (08:55→21:16)
[2016-12-25] MEDS: ENTACAPONE 200 MG TAB PO SCH ×3 (08:57→18:36)
[2016-12-25] MEDS: SELEGILINE HCL 5 MG CAP PO SCH (08:57)
[2016-12-25] MEDS: CARBIDOPA/LEVODOPA 25 MG/100 MG TAB PO SCH ×4 (08:57→18:36)
[2016-12-25] MEDS: ENOXAPARIN 40 MG/0.4 ML SYR SC SCH (09:23)
[2016-12-25] MEDS ORDERED: BISACODYL 10 MG SUPP PR ONE (10:22)
--- NOTE | 2016-12-25 15:10 | ASMTCMCOM ---
CM Note CM Note Notes: CM continues to search for placement. Pt asking to speak w/case monitor, JALEESA notified her of request. Date Signed: 12/25/2016 03:10 PM Electronically Signed By:Tania Fitch RN
[2016-12-25] MEDS: LORazepam 0.5 MG TAB PO PRN (21:16)
[2016-12-25] MEDS: OXYCODONE/APAP 5/325 TAB PO PRN (21:20)
[2016-12-25] MEDS: CARBIDOPA/LEVO CR 50 MG/200 MG TAB PO SCH (23:37)
[2016-12-26] MEDS: ENTACAPONE 200 MG TAB PO SCH ×3 (06:22→21:01)
[2016-12-26] MEDS: SELEGILINE HCL 5 MG CAP PO SCH (06:22)
[2016-12-26] MEDS: CARBIDOPA/LEVODOPA 25 MG/100 MG TAB PO SCH ×4 (06:23→21:00)
[2016-12-26] MEDS: SENNOSIDES/DOCUSATE SODIUM TAB PO SCH ×2 (09:03→23:42)
[2016-12-26] MEDS: DICYCLOMINE 10 MG CAP PO SCH ×3 (09:03→20:59)
[2016-12-26] MEDS: OXYCODONE/APAP 5/325 TAB PO PRN ×2 (09:03→21:00)
[2016-12-26] MEDS: ENOXAPARIN 40 MG/0.4 ML SYR SC SCH (09:04)
--- NOTE | 2016-12-26 09:05 | HOSPPROG ---
Hospitalist Progress Note Assessment/Plan: 71 yo M with PMH of PD and chronic debilitation related to same presented to ED with finger abrasion. Admitted for assistance in placement as patient has not been able to execute self care. # Failure to thrive Secondary from Parkinson's He is chronically debilitated from this and is unable to do basic care Has had some issues of behavioral issues / see nurses notes from last night # PD: advanced and quite debilitated related to same, wheelchair bound on his home medication regimen # recent cervical fusion: patient with odontoid fracture of indeterminate age recently found at [facility] (in September), was treated with fusion # personality disorder: he has had multiple psych evals over the last several months, all of which have essentially concluded that he likely has a personality disorder rather than any axis 1 psychiatric illness complicating his care. requests to stop Effexor as he feels that is making him weaker/ dc # homelessness: as above #. wounds: various wounds with eschar present/ have requested wound care consult #. constipation resolved #. DVT ppx: started on Enoxaparin # IP status, will need > 48 hours stay for eval/mgmt of above given his complicated psychosocial history leading to difficulty obtaining safe discharge plan #. Plan: Ethics evaluated/ reviewed his care with them, he is decisional. Placement is difficult due to his personality disorder and physical needs Subjective: Dahs wants to go outside daily/ requesting I make it a formal order. Objective: Vital Signs Temp Pulse Resp BP Pulse Ox 36.8 C 82 20 131/71 H 93 12/26/16 07:16 12/26/16 07:16 12/26/16 07:16 12/26/16 07:16 12/26/16 07:16 12/25/16 12/26/16 12/27/16 05:59 05:59 05:59 Intake Total 100 1250 Output Total 250 200 Balance -150 1050 - Physical Exam Constitutional: not in pain, chronically ill appearing, other (thin) Eyes: PERRL Ears, Nose, Mouth, Throat: hearing normal Respiratory: no respiratory distress Skin: warm Musculoskeletal: generalized weakness, other (usually in a wheelchair) Neurologic: AAOx3 Psychiatric: interacting appropriately, poor insight, poor judgement ICD10 Worksheet Patient Problems: Problems Problem Status Onset Aggressive behavior Acute Hand abrasion Acute Parkinson disease Acute Parkinson's disease dementia Acute
[2016-12-26] MEDS: CARBIDOPA/LEVO CR 50 MG/200 MG TAB PO SCH (23:33)
[2016-12-27] MEDS: OXYCODONE/APAP 5/325 TAB PO PRN ×3 (01:15→13:38)
[2016-12-27] MEDS: SELEGILINE HCL 5 MG CAP PO SCH (06:22)
[2016-12-27] MEDS: CARBIDOPA/LEVODOPA 25 MG/100 MG TAB PO SCH ×4 (06:22→20:03)
[2016-12-27] MEDS: ENTACAPONE 200 MG TAB PO SCH ×3 (06:22→20:03)
--- NOTE | 2016-12-27 08:33 | HOSPPROG ---
Hospitalist Progress Note Assessment/Plan: 71 yo M with PMH of PD and chronic debilitation related to same presented to ED with finger abrasion. Admitted for assistance in placement as patient has not been able to execute self care. # Failure to thrive Secondary from Parkinson's He is chronically debilitated from this and is unable to do basic care Has had some issues of behavioral issues # PD: advanced and quite debilitated related to same, wheelchair bound on his home medication regimen # recent cervical fusion: patient with odontoid fracture of indeterminate age recently found at [facility] (in September), was treated with fusion # personality disorder: he has had multiple psych evals over the last several months, all of which have essentially concluded that he likely has a personality disorder rather than any axis 1 psychiatric illness complicating his care. requests to stop Effexor as he feels that is making him weaker/ dc # homelessness: as above #. wounds: various wounds with eschar present/ have requested wound care consult #. constipation resolved #. DVT ppx: started on Enoxaparin #. Plan: Ethics evaluated/ reviewed his care with them, he is decisional. Placement is difficult due to his personality disorder and physical needs. Patient is feeling tired and not hungry/ will check his cbc and electrolytes. Subjective: Dash is feeling tired today. Not hungry. Objective: Vital Signs Temp Pulse Resp BP Pulse Ox 36.8 C 87 20 144/89 H 92 12/27/16 07:15 12/27/16 07:15 12/27/16 07:15 12/27/16 07:15 12/27/16 07:15 12/26/16 12/27/16 12/28/16 05:59 05:59 05:59 Intake Total 1250 Output Total 200 525 Balance 1050 -525 - Physical Exam Constitutional: not in pain, chronically ill appearing, unkempt Eyes: PERRL Ears, Nose, Mouth, Throat: hearing normal Cardiovascular: regular rate and rhythym Respiratory: no respiratory distress Skin: warm Musculoskeletal: generalized weakness Neurologic: AAOx3 Psychiatric: interacting appropriately ICD10 Worksheet Patient Problems: Problems Problem Status Onset Aggressive behavior Acute Hand abrasion Acute Parkinson disease Acute Parkinson's disease dementia Acute
[2016-12-27] MEDS: ENOXAPARIN 40 MG/0.4 ML SYR SC SCH (09:10)
[2016-12-27] MEDS: SENNOSIDES/DOCUSATE SODIUM TAB PO SCH ×2 (09:10→23:20)
[2016-12-27] MEDS: DICYCLOMINE 10 MG CAP PO SCH ×3 (09:10→23:20)
[2016-12-27] MEDS: BISACODYL 10 MG SUPP PR PRN (13:05)
[2016-12-27 13:56] LABS: % IMMATURE GRANULYOCYTES 0.4 % (0.0-1.1); ABSOLUTE IMMATURE GRANULOCYTES 0.03 10^3/uL (0.00-0.10); ADD DIFF? NO; ADD MORPH? NO; ADD SCAN? NO; ATYPICAL LYMPHOCYTE FLAG 10 (0-99); FRAGMENT RBC FLAG 0 (0-99); HEMOGLOBIN 13.8 g/dL (13.7-17.5); LEFT SHIFT FLG 0 (0-99); LIPEMIA HEMOLYSIS FLAG 80 (0-99); MEAN CELL HEMOGLOBIN 30.1 pg (27.9-34.1); MEAN CELL HEMOGLOBIN CONCENTR. 31.4 g/dL (32.4-36.7); MEAN CELL VOLUME 95.9 fL (81.5-99.8); MEAN PLATELET VOLUME 9.6 fL (8.7-11.7); PLATELET CLUMPS FLAG 0 (0-99); PLATELET COUNT 264 10^3/uL (150-400); RED BLOOD CELL COUNT 4.59 10^6/uL (4.40-6.38); RED CELL DISTRIBUTION WIDTH 13.7 % (11.5-15.2)
[2016-12-27 14:36] LABS: ALANINE AMINOTRANSFERASE 16 IU/L (21-72); ALKALINE PHOSPHATASE 64 IU/L (38-126); ANION GAP 11 mEq/L (8-16); ASPARTATE AMINOTRANSFERASE 15 IU/L (17-59); BILIRUBIN,TOTAL 0.5 mg/dL (0.1-1.4); CALCIUM 10.3 mg/dL (8.5-10.4); CARBON DIOXIDE 26 mEq/l (22-31); CHLORIDE 102 mEq/L (97-110); CREATININE 0.9 mg/dL (0.7-1.3); GLOMERULAR FILTRATION RATE > 60; GLUCOSE 89 mg/dL (70-100); POTASSIUM 4.3 mEq/L (3.5-5.2); SODIUM 139 mEq/L (134-144); TOTAL PROTEIN 7.7 g/dL (6.3-8.2)
--- NOTE | 2016-12-27 14:44 | ASMTCMCOM ---
CM Note CM Note Notes: PT recommending LTC placement. Ethics has deemed Pt. decisional at this time. Alexandre sent email message to [facility] Eric Lackeyrsami [email or web address] to check in about Pt.s application for permanent supportive housing. Alexandre paged and s/w Efraín. Asked that music be provided to Pt. on MP3 player - it was very helpful during past admission. Director of CM is investigating assistance from APS at this time. YOUSIF/JALEESA following for d/c plan. Date Signed: 12/27/2016 02:44 PM Electronically Signed By:Kristan Maynard LCSW
[2016-12-27] MEDS: LORazepam 0.5 MG TAB PO PRN (17:00)
[2016-12-27] MEDS: CARBIDOPA/LEVO CR 50 MG/200 MG TAB PO SCH (23:21)
[2016-12-28] MEDS: SELEGILINE HCL 5 MG CAP PO SCH (06:34)
[2016-12-28] MEDS: ENTACAPONE 200 MG TAB PO SCH ×3 (06:34→22:10)
[2016-12-28] MEDS: CARBIDOPA/LEVODOPA 25 MG/100 MG TAB PO SCH ×4 (06:34→22:12)
[2016-12-28] MEDS: SENNOSIDES/DOCUSATE SODIUM TAB PO SCH ×2 (10:31→19:38)
[2016-12-28] MEDS: OXYCODONE/APAP 5/325 TAB PO PRN ×2 (10:31→19:36)
[2016-12-28] MEDS: DICYCLOMINE 10 MG CAP PO SCH ×2 (10:32→17:29)
[2016-12-28] MEDS: ENOXAPARIN 40 MG/0.4 ML SYR SC SCH (10:32)
--- NOTE | 2016-12-28 10:48 | HOSPPROG ---
Hospitalist Progress Note Assessment/Plan: 71 yo M with PMH of PD and chronic debilitation related to same presented to ED with finger abrasion. Admitted for assistance in placement as patient has not been able to execute self care. # Failure to thrive Secondary from Parkinson's He is chronically debilitated from this and is unable to do basic care Has had some issues of behavioral issues # PD: advanced and quite debilitated related to same, wheelchair bound on his home medication regimen he can walk with use of the wheelchair # recent cervical fusion: patient with odontoid fracture of indeterminate age recently found at [facility] (in September), was treated with fusion has some neck pain in which he takes Percocet # personality disorder: he has had multiple psych evals over the last several months, all of which have essentially concluded that he likely has a personality disorder rather than any axis 1 psychiatric illness complicating his care. requests to stop Effexor as he feels that is making him weaker/ dc # homelessness: as above #. wounds: various wounds with eschar present/ have requested wound care consult #. constipation resolved #. DVT ppx: started on Enoxaparin #. Plan: Ethics evaluated/ reviewed his care with them, he is decisional. Placement is difficult due to his personality disorder and physical needs. Subjective: Dash gets easily upset. Says we are not listening to him. Objective: Vital Signs Temp Pulse Resp BP Pulse Ox 36.8 C 74 14 117/71 93 12/28/16 07:39 12/28/16 07:39 12/28/16 07:39 12/28/16 07:39 12/28/16 07:39 Laboratory Results 12/27/16 13:30 12/27/16 13:30 12/27/16 12/28/16 12/29/16 05:59 05:59 05:59 Intake Total 880 Output Total 525 100 300 Balance -525 780 -300 - Physical Exam Constitutional: cachectic Eyes: PERRL Ears, Nose, Mouth, Throat: hearing normal Cardiovascular: regular rate and rhythym Skin: warm Musculoskeletal: generalized weakness Neurologic: AAOx3 Psychiatric: agitated ICD10 Worksheet Patient Problems: Problems Problem Status Onset Aggressive behavior Acute Hand abrasion Acute Parkinson disease Acute Parkinson's disease dementia Acute
[2016-12-28] MEDS: BISACODYL 10 MG SUPP PR PRN (20:42)
[2016-12-29] MEDS: DICYCLOMINE 10 MG CAP PO SCH ×4 (00:03→22:13)
[2016-12-29] MEDS: CARBIDOPA/LEVO CR 50 MG/200 MG TAB PO SCH ×2 (01:02→22:13)
[2016-12-29] MEDS: OXYCODONE/APAP 5/325 TAB PO PRN (01:27)
[2016-12-29] MEDS: SELEGILINE HCL 5 MG CAP PO SCH (07:44)
[2016-12-29] MEDS: CARBIDOPA/LEVODOPA 25 MG/100 MG TAB PO SCH ×4 (07:44→20:58)
[2016-12-29] MEDS: ENTACAPONE 200 MG TAB PO SCH ×3 (07:45→22:13)
[2016-12-29] MEDS: ENOXAPARIN 40 MG/0.4 ML SYR SC SCH (10:05)
[2016-12-29] MEDS: SENNOSIDES/DOCUSATE SODIUM TAB PO SCH ×2 (10:05→20:58)
--- NOTE | 2016-12-29 15:28 | HOSPPROG ---
Hospitalist Progress Note Assessment/Plan: 71 yo M with PMH of PD and chronic debilitation related to same presented to ED with finger abrasion. Admitted for assistance in placement as patient has not been able to execute self care. # Failure to thrive Secondary from Parkinson's He is chronically debilitated from this and is unable to do basic care Has had some issues of behavioral issues # PD: advanced and quite debilitated related to same, wheelchair bound on his home medication regimen he can walk with use of the wheelchair # recent cervical fusion: patient with odontoid fracture of indeterminate age recently found at [facility] (in September), was treated with fusion has some neck pain in which he takes Percocet # personality disorder: he has had multiple psych evals over the last several months, all of which have essentially concluded that he likely has a personality disorder rather than any axis 1 psychiatric illness complicating his care. requests to stop Effexor as he feels that is making him weaker/ dc he has been calm and cooperative/ does best if you follow through w any concerns he may have # homelessness: as above #. wounds: various wounds with eschar present/ have requested wound care consult #. constipation resolved #. DVT ppx: started on Enoxaparin #. Plan: Ethics evaluated/ reviewed his care with them, he is decisional. Placement is difficult due to his personality disorder and physical needs. Subjective: Dash is feeling well/ has no complaints. Objective: Vital Signs Temp Pulse Resp BP Pulse Ox 36.5 C 83 12 154/91 H 94 12/29/16 08:00 12/29/16 08:00 12/29/16 08:00 12/29/16 08:00 12/29/16 08:00 Laboratory Results 12/27/16 13:30 12/27/16 13:30 12/28/16 12/29/16 12/30/16 05:59 05:59 05:59 Intake Total 880 800 Output Total 100 300 Balance 780 500 - Physical Exam Constitutional: no apparent distress, chronically ill appearing Eyes: PERRL Ears, Nose, Mouth, Throat: hearing normal Respiratory: no respiratory distress Skin: warm Musculoskeletal: generalized weakness Neurologic: AAOx3 Psychiatric: interacting appropriately, not anxious, not encephalopathic, thought process linear ICD10 Worksheet Patient Problems: Problems Problem Status Onset Aggressive behavior Acute Hand abrasion Acute Parkinson disease Acute Parkinson's disease dementia Acute
[2016-12-30] MEDS: OXYCODONE/APAP 5/325 TAB PO PRN (03:53)
[2016-12-30] MEDS: ENTACAPONE 200 MG TAB PO SCH ×3 (07:14→18:57)
[2016-12-30] MEDS: SELEGILINE HCL 5 MG CAP PO SCH (07:14)
[2016-12-30] MEDS: CARBIDOPA/LEVODOPA 25 MG/100 MG TAB PO SCH ×4 (07:14→18:57)
[2016-12-30 08:36] VITALS: RESP 16
--- NOTE | 2016-12-30 08:38 | HOSPPROG ---
Hospitalist Progress Note Assessment/Plan: 71 yo M with PMH of PD and chronic debilitation related to same presented to ED with finger abrasion. Admitted for assistance in placement as patient has not been able to execute self care. # Failure to thrive Secondary from Parkinson's He is chronically debilitated from this and is unable to do basic care Has had some issues of behavioral issues # PD: advanced and quite debilitated related to same, wheelchair bound on his home medication regimen he can walk with use of the wheelchair # recent cervical fusion: patient with odontoid fracture of indeterminate age recently found at [facility] (in September), was treated with fusion has some neck pain in which he takes Percocet # personality disorder: he has had multiple psych evals over the last several months, all of which have essentially concluded that he likely has a personality disorder rather than any axis 1 psychiatric illness complicating his care. requests to stop Effexor as he feels that is making him weaker/ dc he has been calm and cooperative/ does best if you follow through w any concerns he may have # homelessness: as above #. wounds: various wounds with eschar present/ have requested wound care consult #. constipation resolved #. DVT ppx: started on Enoxaparin #. Plan: Ethics evaluated/ reviewed his care with them, he is decisional. Placement is difficult due to his personality disorder and physical needs. Subjective: Dash said he is feeling fine/no complaints. Objective: Vital Signs Temp Pulse Resp BP Pulse Ox 36.9 C 94 16 132/88 H 92 12/30/16 08:00 12/30/16 08:00 12/30/16 08:00 12/30/16 08:00 12/30/16 08:00 Laboratory Results 12/27/16 13:30 12/27/16 13:30 12/29/16 12/30/16 12/31/16 05:59 05:59 05:59 Intake Total 800 1500 Output Total 300 Balance 500 1500 - Physical Exam Constitutional: other Eyes: PERRL Ears, Nose, Mouth, Throat: hearing normal Gastrointestinal: normoactive bowel sounds Skin: warm Musculoskeletal: generalized weakness Neurologic: AAOx3 Psychiatric: interacting appropriately, not encephalopathic ICD10 Worksheet Patient Problems: Problems Problem Status Onset Aggressive behavior Acute Hand abrasion Acute Parkinson disease Acute Parkinson's disease dementia Acute
[2016-12-30] MEDS: DICYCLOMINE 10 MG CAP PO SCH ×3 (11:41→21:38)
[2016-12-30] MEDS: ENOXAPARIN 40 MG/0.4 ML SYR SC SCH ×2 (11:41→11:48)
[2016-12-30] MEDS: SENNOSIDES/DOCUSATE SODIUM TAB PO SCH ×2 (11:41→21:38)
[2016-12-30] MEDS: CARBIDOPA/LEVO CR 50 MG/200 MG TAB PO SCH (22:02)
[2016-12-31] MEDS: SELEGILINE HCL 5 MG CAP PO SCH (08:31)
[2016-12-31] MEDS: DICYCLOMINE 10 MG CAP PO SCH ×3 (08:32→20:51)
[2016-12-31] MEDS: CARBIDOPA/LEVODOPA 25 MG/100 MG TAB PO SCH ×4 (08:32→20:50)
[2016-12-31] MEDS: ENTACAPONE 200 MG TAB PO SCH ×3 (08:32→20:50)
[2016-12-31] MEDS: SENNOSIDES/DOCUSATE SODIUM TAB PO SCH ×2 (08:33→20:51)
[2016-12-31] MEDS: ENOXAPARIN 40 MG/0.4 ML SYR SC SCH (08:36)
--- NOTE | 2016-12-31 10:33 | HOSPPROG ---
Hospitalist Progress Note Assessment/Plan: 71 yo M with PMH of PD and chronic debilitation related to same presented to ED with finger abrasion. Admitted for assistance in placement as patient has not been able to execute self care. # Failure to thrive Secondary from Parkinson's He is chronically debilitated from this and is unable to do basic care Has had some issues of behavioral issues # PD: advanced and quite debilitated related to same, wheelchair bound on his home medication regimen he can walk with use of the wheelchair # recent cervical fusion: patient with odontoid fracture of indeterminate age recently found at [facility] (in September), was treated with fusion has some neck pain in which he takes Percocet # personality disorder: he has had multiple psych evals over the last several months, all of which have essentially concluded that he likely has a personality disorder rather than any axis 1 psychiatric illness complicating his care. requests to stop Effexor as he feels that is making him weaker/ dc he has been calm and cooperative/ does best if you follow through w any concerns he may have # homelessness: as above #. wounds: various wounds with eschar present/ have requested wound care consult #. constipation resolved #. DVT ppx: started on Enoxaparin #. Plan: Ethics evaluated/ reviewed his care with them, he is decisional. Placement is difficult due to his personality disorder and physical needs.Patient was upset/agitated this morning. Security called / mainly Dash doesn't feel understood, room searched and a razor blade was found. He would like ot go to a hotel but wants the hospital to arrange. Spoke with Yodit merrill CM/ if he wants to leave A, will not hold him. He has a personality disorder and not mental illness. Subjective: Dash is calling me a "f" "b" and says noone is listening. Objective: Vital Signs Temp Pulse Resp BP Pulse Ox 36.7 C 67 16 120/72 92 12/31/16 00:00 12/31/16 00:00 12/31/16 00:00 12/31/16 00:00 12/31/16 00:00 Laboratory Results 12/27/16 13:30 12/27/16 13:30 12/30/16 12/31/16 01/01/17 05:59 05:59 05:59 Intake Total 1500 750 Balance 1500 750 - Physical Exam Constitutional: appears nourished Eyes: PERRL Ears, Nose, Mouth, Throat: hearing normal Respiratory: no respiratory distress Skin: warm Musculoskeletal: generalized weakness, other Neurologic: AAOx3 Psychiatric: not encephalopathic, thought process linear, agitated ICD10 Worksheet Patient Problems: Problems Problem Status Onset Aggressive behavior Acute Hand abrasion Acute Parkinson disease Acute Parkinson's disease dementia Acute
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
--- NOTE | 2016-12-31 18:56 | ASMTCMCOM ---
CM Note CM Note Notes: 12/28/16 late note: Received a consent form from the [facility] for Dash to sign in order for them to pursue permanent supportive housing for him. Dash was agreeable and signed the release. The release was securely emailed to Dash Bull at the [facility]. Will continue to follow. Date Signed: 12/31/2016 06:55 PM Electronically Signed By:Yodit Stauffer RN
[2016-12-31] MEDS: CARBIDOPA/LEVO CR 50 MG/200 MG TAB PO SCH (23:49)
[2017-01-01] MEDS ORDERED: MELATONIN 3 MG TAB PO PRN (01:21)
[2017-01-01 01:51] VITALS: BP 121/69; PULSE 81; TEMP 98.4; O2SAT 93
[2017-01-01] MEDS: CARBIDOPA/LEVODOPA 25 MG/100 MG TAB PO SCH ×2 (08:38→11:40)
[2017-01-01] MEDS: ENTACAPONE 200 MG TAB PO SCH ×2 (08:39→11:40)
[2017-01-01] MEDS: SELEGILINE HCL 5 MG CAP PO SCH (08:39)
[2017-01-01] MEDS: SENNOSIDES/DOCUSATE SODIUM TAB PO SCH (10:14)
[2017-01-01] MEDS: DICYCLOMINE 10 MG CAP PO SCH (10:14)
[2017-01-01] MEDS: ENOXAPARIN 40 MG/0.4 ML SYR SC SCH (11:40)
--- NOTE | 2017-01-01 15:09 | ASMTCMCOM ---
CM Note CM Note Notes: Consulted with Director and cmm programmer. Pt did not discharge AMA yesterday. Pt is being discharged today. [facility] is provide transportation to [place] to stay w/ some friends. Director of Case management has been in touch w/ APS regarding dispo plan. Discussed w/ MD regarding case. CM available for changes. Date Signed: 01/01/2017 03:08 PM Electronically Signed By:ISAEL Gr
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
--- NOTE | 2017-01-01 18:56 | PDDCSUM ---
Discharge Summary Discharge Summary: DISCHARGE SUMMARY FOLLOW-UP ITEMS: None DATE OF ADMISSION: 12/22/2016 DATE OF DISCHARGE: 01/01/2017 DISCHARGE DIAGNOSES: 1. Failure to thrive 2. Chronic Parkinson's disease 3. Chronic cervical neck pain 4. Personality disorder 5. Pressure injury, present on admission 6. Chronic pain with continuous opiate dependency CONSULTATIONS: Social Work, Case Management PROCEDURES / IMAGING: None CHIEF COMPLAINT: Inability to care for self, presented with finger abrasion SUBJECTIVE: Patient is feeling well at time of discharge, he is distressed about some sort of legal issue not pertaining to the hospital PHYSICAL EXAM ON DISCHARGE: Systolic blood pressure is 120, heart rate 70, afebrile overnight, satting well on room air, chronically ill-appearing man, pill rolling motions in his bilateral hands, lungs are clear to auscultation bilaterally, heart rhythm is regular, bowel sounds are present, he has trace bilateral lower extremity edema , and he is constantly mumbling somewhat incoherent speech LABS ON DISCHARGE: Creatinine 0.9 HOSPITAL COURSE BY PROBLEM: The patient presented for a finger abrasion but his reason for hospitalization was inability to complete ADLs and overall failure to thrive. This was secondary to advanced Parkinson's disease rendering him quite debilitated and wheelchair bound. Was continued on his home Parkinson's disease medications but his overall physical status did not demonstrate any substantial improvement. We attempted to engage in physical occupational therapy, and he would occasionally participate. We attempted to provide him with safe discharge plan, and ultimately the patient decided to return to his homeless situation, where he believes he has a viable support network. The patient was seen by ethics and deemed to have cognitive capacity in order to make decisions and he is therefore able to make this decision for himself. We did review patient's previous mental health evaluations and they all centrally concluded that he has a personality disorder rather than access 1 psychiatric illness. The patient will decide for himself whether to discontinue his venlafaxine, as he is intermittently expressed that this may make him feel somewhat weaker. We attempted to manage his cervical neck pain with as needed Percocet, which she takes as an outpatient, confirmed by a tox screen positive for opiates on presentation. DISCHARGE MEDICATIONS: Please see official discharge medication reconciliation sheet in chart, continue all home medications DISCHARGE INSTRUCTIONS: Please follow up with her outpatient providers. TIME SPENT: Greater than 30 minutes were spent on direct patient care, as well as discharge planning and preparation.
== END 2017-01-01 14:20 | disposition home or self-care (01) | DRG 57 ==
LOC: EDUNIT# → EEVIPCON 11:27 → F3E 14:34
PROVIDERS: ADMIT Internal Medicine; ATTEND Internal Medicine
DX: G31.83 Neurocognitive disorder with Lewy bodies (principal); F11.20 Opioid dependence, uncomplicated; R62.7 Adult failure to thrive; F60.9 Personality disorder, unspecified; G89.29 Other chronic pain; Z99.3 Dependence on wheelchair; Z59.0 Homelessness; Z72.0 Tobacco use; S60.512A Abrasion of left hand, initial encounter; F02.80 Dementia in other diseases classified elsewhere, unspecified severity, without behavioral disturbance, psychotic disturbance, mood disturbance, and anxiety; R32 Unspecified urinary incontinence
CPT/HCPCS: 80305; 92507-GN; 92523-GN; 92610-GN; 97162-GP; G8978-GP-CJ; G8979-GP-CI; G8980-GP-CI; G8996-GN-CI; G8997-GN-CI; G8998-GN-CI; G8999-GN-CK; G9186-GN-CJ; J1650

== ENCOUNTER 2017-01-02 23:03 | Emergency (ER) | payer OTHER, MEDICAID ==
--- NOTE | 2017-01-03 01:11 | EDPHY ---
H & P Stated Complaint: unable to be cared for at [facility]dc- pain Time Seen by Provider: 01/02/17 23:10 HPI/ROS: HPI The patient presents, brought in by ambulance from [facility] because of inability to care for self there. Apparently, he was asking the staff there to help turn him and they are not able to perform duties like this so 911 was called. They cannot accept him back there because he requires more care than a can provide. In review of the patient's medical records it appears he was discharged from the hospital yesterday on 01/01, he was discharged to [place], to stay with friends that have been supportive he says, where he had placement. Upon arrival there, he did not have his medications and then requested transport back to the hospital. Here, he re-presented to the emergency department. He was given paper prescriptions for the medications he requested, however no pills were provided. He was discharged from the ER and then went to [facility] it seems. Currently, the patient denies any complaints. He says that he would like to go to an assisted living facility. It seems that many placement possibilities have been explored on his most recent admission and he is certainly difficult to place because of his medical condition its, coupled with a personality disorder. Ethics, case management was consulted and the patient was determined to have cognitive capacity to make all of his own medical decisions. Previous mental health evaluations state that he has a personality disorder rather than an axis 1 disorder. REVIEW OF SYSTEMS Constitutional: No fever, no chills. Eyes: No discharge. ENT: No sore throat. Cardiovascular: No chest pain, no palpitations. Respiratory: No cough, no shortness of breath. Gastrointestinal: No abdominal pain, no vomiting. Genitourinary: No hematuria. Musculoskeletal: No back pain. Skin: No rashes. Neurological: No headache. PMHx: Parkinson's disease, history of orthostatic hypotension, chronic cervical neck pain Soc Hx: Currently homeless PHYSICAL General Appearance: Alert, thin man in no acute distress Eyes: Pupils equal and round no pallor or injection ENT, Mouth: Mucous membranes moist Respiratory: There are no retractions, lungs are clear to auscultation Cardiovascular: Regular rate and rhythm Gastrointestinal: Abdomen is soft and non-tender, no masses, bowel sounds normal Neurological: A&O, moves all extremities Skin: Warm and dry, no rashes Musculoskeletal: Neck is supple non tender Extremities: symmetrical, full range of motion Psychiatric: Patient is oriented X 3, there is no agitation Source: Patient, EMS, Old records Exam Limitations: No limitations - Personal History Tetanus Vaccine Date: < 10 years - Medical/Surgical History Hx Asthma: No Hx Chronic Respiratory Disease: No Hx Diabetes: No Hx Cardiac Disease: No Hx Renal Disease: No Hx Cirrhosis: No Hx Alcoholism: Yes Hx HIV/AIDS: No Hx Splenectomy or Spleen Trauma: No Other PMH: Parkinson's, Orthostatic hypotension, syncope, alcohol withdrawl. mental health issues. - Social History Smoking Status: Current every day smoker Constitutional: Initial Vital Signs Temperature (C) 36.7 C 01/02/17 23:13 Heart Rate 86 01/02/17 23:13 Respiratory Rate 20 01/02/17 23:13 Blood Pressure 126/92 H 01/02/17 23:13 O2 Sat (%) 93 01/02/17 23:13 O2 Delivery Mode Room Air Allergies/Adverse Reactions: quetiapine [From Seroquel] Allergy (Verified 01/02/17 13:03) Home Medications: Medication Instructions Recorded Carbidopa/Levodopa 25/100Mg 1.5 tab PO QID@07,11,15,19 11/17/16 [Sinemet 25/100 MG (*)] Dicyclomine [Bentyl 10 MG (*)] 10 mg PO TID 11/17/16 Entacapone [Comtan] 200 mg PO TID@07,11,19 11/17/16 Selegiline HCl [Eldepryl 5mg (*)] 5 mg PO DAILY@0700 11/17/16 Venlafaxine Xr [Effexor Xr 75MG 75 mg PO DAILY 11/17/16 (*)] Venlafaxine Xr [Effexor Xr] 150 mg PO HS 11/17/16 Carbidopa/Levo Cr 50/200Mg 1 tab PO DAILY@2300 11/18/16 [SINEMET CR 50/200 MG (*)] Medical Decision Making Differential Diagnosis: This is a 71-year-old man with unfortunate combination of his medical problems including Parkinson's disease making it difficult him to care for himself with a personality disorder and aggressive behavior, rejected from any local facilities for placement. He now presents to the hospital after a prolonged admission for placement, ultimately discharged to [place] to live with friends. Return immediately to the hospital for his medications and then went to a local fdc where he was rejected because of his medical needs. It appears that options have been exhausted for him. Currently, he denies any medical complaints and is at his baseline medically. I do not feel we have much to offer him from the emergency department at this time. I will have case management evaluate him in the morning. I do not feel he needs any medical evaluation at this time. Departure - Departure Disposition: Home, Routine, Self-Care Clinical Impression: Parkinson disease Condition: Good Instructions: Parkinson Disease (ED), Self-Care Measures with a Chronic Disease (ED) Referrals: [facility],. [Clinic] - As per Instructions
[2017-01-03 06:14] VITALS: BP 110/66; PULSE 61; RESP 16; TEMP 97.9; O2SAT 96
== END 2017-01-03 06:14 | disposition home or self-care (01) ==
LOC: EDUNIT#
DX: G20 Parkinson's disease (principal); F17.200 Nicotine dependence, unspecified, uncomplicated

== ENCOUNTER 2017-01-08 00:31 | Emergency (ER) | payer OTHER, MEDICAID ==
--- NOTE | 2017-01-08 00:43 | EDPHY ---
H & P HPI/ROS: HPI CHIEF COMPLAINT: No Medical Complaints, Could not get pants on. HISTORY OF PRESENT ILLNESS: Patient is a 71-year-old male he does have chronic Parkinson's, he is homeless, history failure to thrive and chronic cervical neck pain, personality disorder and chronic pain presents emergency room from the bus stop by EMS. Patient reports that he is homeless. And that it was called her out tonight and he decided he needed put is sweat pants on as he was in shorts. He states that he had a hard time getting a sweat pants on so he decided call 911. He denies any focal medical complaints. Specifically denies chest pain or shortness of breath. Denies headache. Denies focal weakness. When I asked him what we can do to help him here in the emergency room he states that he would like pain medicine for his chronic neck pain. Past Medical History: Failure to thrive, Parkinson's, chronic cervical neck pain, personality disorder, chronic pain Past Surgical History: Cervical surgery Social History: Homeless, denies illicit drugs. Family History: Noncontributory ROS REVIEW OF SYSTEMS: A comprehensive 10 point review of systems is otherwise negative aside from elements mentioned in the history of present illness. Exam Constitutional frail appearing, cachectic, chronically ill-appearing, triage nursing summary reviewed, vital signs reviewed, awake/alert. Eyes normal conjunctivae and sclera, EOMI, PERRLA. HENT normal inspection, atraumatic, moist mucus membranes, no epistaxis, neck supple/ no meningismus, no raccoon eyes. Respiratory clear to auscultation bilaterally, normal breath sounds, no respiratory distress, no wheezing. Cardiovascular rate normal, regular rhythm, no murmur, no edema, distal pulses normal. Gastrointestinal soft, non-tender, no rebound, no guarding, normal bowel sounds, no distension, no pulsatile mass. Genitourinary no CVA tenderness. Musculoskeletal no midline vertebral tenderness, full range of motion, no calf swelling, no tenderness of extremities, no meningismus, good pulses, neurovascularly intact. Neurologic awake, alert and oriented x 3, AAOx3, moves all 4 extremities equally, motor intact, sensory intact, CN II-XII intact, normal cerebellar, normal vision, normal speech. Psychiatric normal mood/affect. Heme/Lymph/Immune no lymphadenopathy. Differential Diagnosis: Includes but is not limited to in a particular order under to thrive, generalized weakness, electrolyte disturbance, mcc seeking , chronic homelessness Medical Decision Making: Plan for this patient will try to provide him with resources. Additionally he does not have a focal medical complaint here in emergency room. Will try to get him to a mcc this evening. Re-evaluation: 0301AM: Patient is sleeping at this time. Additionally upon arrival to the emergency room he did request some to eat we did feed him. He has no further complaints at this time. Sleeping. Plan will hopefully be to discharge in the morning when it is light out. And safe for discharge in his wheelchair. 0640AM: Patient slept here all night. He is now awake. No focal medical complaints. He is agreeable discharge. He understands it is seven a.m. and light out. He is homeless. He is calm and cooperative and agreeable on discharge Source: Patient, EMS - Personal History Tetanus Vaccine Date: < 10 years - Medical/Surgical History Hx Asthma: No Hx Chronic Respiratory Disease: No Hx Diabetes: No Hx Cardiac Disease: No Hx Renal Disease: No Hx Cirrhosis: No Hx Alcoholism: Yes Hx HIV/AIDS: No Hx Splenectomy or Spleen Trauma: No Other PMH: Parkinson's, Orthostatic hypotension, syncope, alcohol withdrawl. mental health issues. - Social History Smoking Status: Current every day smoker Constitutional: Initial Vital Signs Temperature (C) 36.7 C 01/08/17 00:35 Heart Rate 82 01/08/17 00:35 Respiratory Rate 18 01/08/17 00:35 Blood Pressure 128/81 H 01/08/17 00:35 O2 Sat (%) 93 01/08/17 00:35 O2 Delivery Mode Room Air Allergies/Adverse Reactions: quetiapine [From Seroquel] Allergy (Verified 01/08/17 00:48) Home Medications: Medication Instructions Recorded Carbidopa/Levodopa 25/100Mg 1.5 tab PO QID@07,,15,11/17/16 [Sinemet 25/100 MG (*)] Dicyclomine [Bentyl 10 MG (*)] 10 mg PO TID 11/17/16 Entacapone [Comtan] 200 mg PO TID@07,11,19 11/17/16 Selegiline HCl [Eldepryl 5mg (*)] 5 mg PO DAILY@0700 11/17/16 Venlafaxine Xr [Effexor Xr 75MG 75 mg PO DAILY 11/17/16 (*)] Venlafaxine Xr [Effexor Xr] 150 mg PO HS 11/17/16 Carbidopa/Levo Cr 50/200Mg 1 tab PO DAILY@2300 11/18/16 [SINEMET CR 50/200 MG (*)] Departure - Departure Disposition: Home, Routine, Self-Care Clinical Impression: Parkinsons Condition: Good Instructions: Parkinson Disease (ED) Referrals: NONE *PRIMARY CARE P,. [Primary Care Provider] - As per Instructions
[2017-01-08 00:48] VITALS: TEMP 98.1
[2017-01-08 06:00] VITALS: BP 159/79; PULSE 75; RESP 20; O2SAT 94
== END 2017-01-08 07:05 | disposition home or self-care (01) ==
LOC: EDUNIT#
DX: G20 Parkinson's disease (principal); F17.200 Nicotine dependence, unspecified, uncomplicated

== ENCOUNTER 2017-01-09 21:23 | Emergency (ER) | payer OTHER, MEDICAID ==
[2017-01-09 21:30] VITALS: RESP 16
--- NOTE | 2017-01-09 22:07 | EDPHY ---
H & P Stated Complaint: fall off bench, low back pain HPI/ROS: HPI CHIEF COMPLAINT: Fall off bench back pain HISTORY OF PRESENT ILLNESS: Patient is well known to myself as well as the emergency room, he is homeless, history of Parkinson's and personality disorder , chronic back pain, he presents emergency room stating that he fell off a park bench this evening landing on his lumbar spine low back. Now has pain. He denies any saddle anesthesia. Bowel bladder incontinence. Denies any leg weakness different from his baseline. He is wheelchair bound. Past Medical History: Failure to thrive, Parkinson's, personality disorder, chronic back pain homelessness Past Surgical History: No recent surgery Social History: Homeless, denies drugs alcohol tobacco. Family History: Noncontributory ROS REVIEW OF SYSTEMS: A comprehensive 10 point review of systems is otherwise negative aside from elements mentioned in the history of present illness. Exam Constitutional triage nursing summary reviewed, vital signs reviewed, awake/ alert. Eyes normal conjunctivae and sclera, EOMI, PERRLA. HENT normal inspection, atraumatic, moist mucus membranes, no epistaxis, neck supple/ no meningismus, no raccoon eyes. Respiratory clear to auscultation bilaterally, normal breath sounds, no respiratory distress, no wheezing. Cardiovascular rate normal, regular rhythm, no murmur, no edema, distal pulses normal. Gastrointestinal soft, non-tender, no rebound, no guarding, normal bowel sounds, no distension, no pulsatile mass. Genitourinary no CVA tenderness. Musculoskeletal no midline vertebral tenderness, full range of motion, no calf swelling, no tenderness of extremities, no meningismus, good pulses, neurovascularly intact. Skin pink, warm, & dry, no rash, skin atraumatic. Neurologic awake, alert and oriented x 3, AAOx3, moves all 4 extremities equally, motor intact, sensory intact, CN II-XII intact, normal cerebellar, normal vision, normal speech. Psychiatric normal mood/affect. Heme/Lymph/Immune no lymphadenopathy. Differential Diagnosis: Includes but is not limited to in a particular order: Compression fracture, lumbar strain, disc herniation, annular tear, nerve root compression chronic back pain Medical Decision Making: Plan for this patient x-ray lumbar spine rule out acute compression fracture. Re-evaluation: 2244: X-rays reviewed lumbar spine. I do not appreciate any malalignment or significant evidence of acute compression fracture. Will outpatient be discharged. Vital signs reviewed. Patient appears to be his baseline. I am very familiar with him. X-ray does not reveal anything acute. Source: Patient - Personal History Current Tetanus/Diphtheria Vaccine: Yes Current Tetanus Diphtheria and Acellular Pertussis (TDAP): Yes Tetanus Vaccine Date: < 10 years - Medical/Surgical History Hx Asthma: No Hx Chronic Respiratory Disease: No Hx Diabetes: No Hx Cardiac Disease: No Hx Renal Disease: No Hx Cirrhosis: No Hx Alcoholism: Yes Hx HIV/AIDS: No Hx Splenectomy or Spleen Trauma: No Other PMH: Parkinson's, Orthostatic hypotension, syncope, alcohol withdrawl. mental health issues. - Social History Smoking Status: Current every day smoker Constitutional: Initial Vital Signs Temperature (C) 36.5 C 01/09/17 21:28 Heart Rate 73 01/09/17 21:28 Respiratory Rate 16 01/09/17 21:28 Blood Pressure 146/92 H 01/09/17 21:28 O2 Sat (%) 94 01/09/17 21:28 O2 Delivery Mode Room Air Allergies/Adverse Reactions: quetiapine [From Seroquel] Allergy (Verified 01/09/17 21:28) Home Medications: Medication Instructions Recorded Carbidopa/Levodopa 25/100Mg 1.5 tab PO QID@07,,15,11/17/16 [Sinemet 25/100 MG (*)] Dicyclomine [Bentyl 10 MG (*)] 10 mg PO TID 11/17/16 Entacapone [Comtan] 200 mg PO TID@07,,11/17/16 Selegiline HCl [Eldepryl 5mg (*)] 5 mg PO DAILY@0711/17/16 Venlafaxine Xr [Effexor Xr 75MG 75 mg PO DAILY 11/17/16 (*)] Venlafaxine Xr [Effexor Xr] 150 mg PO HS 11/17/16 Carbidopa/Levo Cr 50/200Mg 1 tab PO DAILY@0 11/18/16 [SINEMET CR 50/200 MG (*)] Departure - Departure Disposition: Home, Routine, Self-Care Clinical Impression: Chronic back pain Qualifiers: Back pain location: low back pain Back pain laterality: unspecified Sciatica presence: without sciatica Qualified Code(s): M54.5 - Low back pain; G89.29 - Other chronic pain; G89.29 - Other chronic pain Condition: Good Instructions: Back Pain (ED), Low Back Strain (ED), Acute Low Back Pain (ED) Referrals: Patient,NotPresent [Primary Care Provider] - As per Instructions
[2017-01-09 23:15] VITALS: BP 132/70; PULSE 72; TEMP 97.3; O2SAT 95
== END 2017-01-09 23:11 | disposition home or self-care (01) ==
LOC: EDUNIT#
DX: S39.92XA Unspecified injury of lower back, initial encounter (principal); G89.29 Other chronic pain; F17.200 Nicotine dependence, unspecified, uncomplicated; G20 Parkinson's disease; W07.XXXA Fall from chair, initial encounter; Y92.830 Public park as the place of occurrence of the external cause

== ENCOUNTER 2017-01-26 18:46 | Emergency (ER) | payer OTHER, MEDICAID ==
--- NOTE | 2017-01-26 19:45 | EDPHY ---
H & P Time Seen by Provider: 01/26/17 18:50 HPI/ROS: HPI Reports falling and hitting head. 71-year-old male by ambulance. This patient has a history of advanced Parkinson 's. He is well known to our emergency department and hospital. He is homeless. He is not complaint with his care and resources that have been provided to him in the past. He was found in the bathroom of a ice cream store. The staff there feel that he was looking for a place to sleep. He says that he hit his head. He was then brought to the emergency department by ambulance. Currently he is denying any complaints and is asking for help with a place to stay overnight. ROS: Constitutional: No fever, no chills. No weakness. Eyes: No discharge. No changes in vision. ENT: No sore throat. No nasal congestion or rhinorrhea. Respiratory: No cough. No shortness of breath. Cardiac: No chest pain, no palpitations. Gastrointestinal: No abdominal pain, no vomiting, no diarrhea. Genitourinary: No hematuria. No dysuria or increased frequency with urination. Musculoskeletal: No back pain. No neck pain. No myalgias or arthralgias. Skin: No rashes. Neurological: No headache. No focal weakness or altered sensation. Past medical history: Parkinson's, orthostatic hypotension, alcohol abuse, mental health issues. Social history: As above. He is in a wheelchair. Physical Exam: General Appearance: Sleeping but easily arousable, no distress. Disheveled. This patient is responding to questions appropriately. This patient generally appears well-hydrated and well-nourished. Eyes: Pupils equal and round no pallor or injection. No lid edema, erythema or injection. Head: Normocephalic atraumatic, there is no evidence of acute traumatic injury to his face or skull. Respiratory: There are no retractions, lungs are clear to auscultation with good air movement bilaterally. Cardiovascular: Regular rate and rhythm. No murmur. Gastrointestinal: Abdomen is soft and nontender. Neurological: Motor sensory function at baseline. Cranial nerves are intact. Skin: Warm and dry, no rashes. No acute lacerations or abrasions. Musculoskeletal: Neck is supple and nontender. No midline cervical spine or thoracic spine tenderness on palpation. Extremities are symmetrical. Psychiatric: No agitation. Database: EKG: Imaging: Procedures: Emergency department course: Vital signs reviewed and are normal. Will try to get this patient over to the homeless nursing home by taxi. Patient's remaining emergency department course under my care has been uneventful. I discussed [facility]. Return to emergency department precautions reviewed. All of his questions were answered. He was discharged in good condition. Differential Diagnosis: The differential diagnosis on this patient includes but is not limited to malingering. Acute traumatic head injury, other significant acute traumatic injury unlikely. This represents a partial list of diagnoses considered. These considerations are based on history, physical exam, past history, reassessment and diagnostic testing. Smoking Status: Current every day smoker Constitutional: Initial Vital Signs Temperature (C) 36.9 C 01/26/17 18:46 Heart Rate 89 01/26/17 18:46 Respiratory Rate 20 01/26/17 18:46 Blood Pressure 115/81 H 01/26/17 18:46 O2 Sat (%) 92 01/26/17 18:46 O2 Delivery Mode Room Air Allergies/Adverse Reactions: quetiapine [From Seroquel] Allergy (Verified 01/26/17 18:52) Home Medications: Medication Instructions Recorded Carbidopa/Levodopa 25/100Mg 1.5 tab PO QID@07,11,15,11/17/16 [Sinemet 25/100 MG (*)] Dicyclomine [Bentyl 10 MG (*)] 10 mg PO TID 11/17/16 Entacapone [Comtan] 200 mg PO TID@07,11,19 11/17/16 Selegiline HCl [Eldepryl 5mg (*)] 5 mg PO DAILY@0700 11/17/16 Venlafaxine Xr [Effexor Xr 75MG 75 mg PO DAILY 11/17/16 (*)] Venlafaxine Xr [Effexor Xr] 150 mg PO HS 11/17/16 Carbidopa/Levo Cr 50/200Mg 1 tab PO DAILY@2300 11/18/16 [SINEMET CR 50/200 MG (*)] Departure - Departure Disposition: Home, Routine, Self-Care Clinical Impression: History of Parkinson's disease, Malingering Condition: Good Instructions: Parkinson Disease (ED) Additional Instructions: Read and follow provided instructions. Follow-up with your primary care physician in 1-2 days for re-evaluation. Take your medication as prescribed. Return to the emergency department for worsening symptoms or other serious concerns. Referrals: [facility],. [Clinic] - As per Instructions
[2017-01-26 20:14] VITALS: BP 96/52; PULSE 75; RESP 16; TEMP 98.2; O2SAT 91
--- NOTE | 2017-01-28 12:26 | ASDISCHSUM ---
Discharge Information Plan Status:Homeless/Assisted Medically Cleared to Leave: Discharge Date:01/26/2017 08:14 PM D/C Disposition:Streets (Homeless) ADT D/C Disposition:Home, Routine, Self-Care Projected Discharge Date:01/26/2017 08:14 PM Transportation at D/C:None or Unknown Discharge Delay Reason: Follow-Up Date:01/26/2017 08:14 PM Discharge Slot: Final Diagnosis: Placement Information Patient Contact Information Contact Name:ROMANA Relationship:Friend Address: Work Phone: City: [facility] Phone: State/Zip Code: Email: Financial Information Financial Class: Primary Plan Desc:MEDICARE OUTPATIENT Primary Plan Number:[id number] Secondary Plan Desc:[employer] [place] Secondary Plan Number:[id number] Assessment Information LACE LACE Acuity / Level of Care Answers: No. Emergency dept visits in Answers: 4+ last 6 months Score: 4 Date Signed: 01/28/2017 12:25 PM Electronically Signed By:Kristan Negron RN Intervention Information
--- NOTE | 2017-01-28 12:26 | ASDISCHSUM ---
Discharge Information Plan Status:Homeless/Fpc Medically Cleared to Leave: Discharge Date:01/26/2017 08:14 PM D/C Disposition:[facility]reets (Homeless) ADT D/C Disposition:Home, Routine, Self-Care Projected Discharge Date:01/26/2017 08:14 PM Transportation at D/C:None or Unknown Discharge Delay Reason: Follow-Up Date:01/26/2017 08:14 PM Discharge Slot: Final Diagnosis: Placement Information Patient Contact Information Contact Name:ROMANA Relationship:Friend Address: Work Phone: City: [facility] Phone: State/Zip Code: Email: Financial Information Financial Class: Primary Plan Desc:MEDICARE OUTPATIENT Primary Plan Number:[id number] Secondary Plan Desc:MEDICA[employer] [place] Secondary Plan Number:[id number] Assessment Information LACE LACE Acuity / Level of Care Answers: No. Emergency dept visits in Answers: 4+ last 6 months Score: 4 Date Signed: 01/28/2017 12:25 PM Electronically Signed By:Kristan Negron RN Intervention Information
--- NOTE | 2017-01-28 12:26 | ASDISCHSUM ---
Discharge Information Plan Status:Homeless/Care Home Medically Cleared to Leave: Discharge Date:01/26/2017 08:14 PM D/C Disposition:[facility]reets (Homeless) ADT D/C Disposition:Home, Routine, Self-Care Projected Discharge Date:01/26/2017 08:14 PM Transportation at D/C:None or Unknown Discharge Delay Reason: Follow-Up Date:01/26/2017 08:14 PM Discharge Slot: Final Diagnosis: Placement Information Patient Contact Information Contact Name:ROMANA Relationship:Friend Address: Work Phone: City: [facility] Phone: State/Zip Code: Email: Financial Information Financial Class: Primary Plan Desc:MEDICARE OUTPATIENT Primary Plan Number:[id number] Secondary Plan Desc:MEDICAID [employer] [place] Secondary Plan Number:[id number] Assessment Information LACE LACE Acuity / Level of Care Answers: No. Emergency dept visits in Answers: 4+ last 6 months Score: 4 Date Signed: 01/28/2017 12:25 PM Electronically Signed By:Kristan Negron RN Intervention Information
== END 2017-01-26 20:14 | disposition home or self-care (01) ==
LOC: EDUNIT#
DX: G20 Parkinson's disease (principal); F17.200 Nicotine dependence, unspecified, uncomplicated; Z76.5 Malingerer [conscious simulation]

== ENCOUNTER 2017-09-13 15:05 | Emergency (ER) | payer OTHER, MEDICAID ==
--- NOTE | 2017-09-13 15:32 | EDPHY ---
General Time Seen by Provider: 09/13/17 15:12 Narrative: CHIEF COMPLAINT: Fall, multiple areas of pain HISTORY OF PRESENT ILLNESS: Patient presents by EMS and is seen at time of arrival. He reportedly had a mechanical fall while outside. He says he tripped and fell. He sustained abrasions to the back of the hands and his knees. He says that he has some left -sided neck pain, right shoulder pain, low back pain. EMS reports that he was ambulating without any difficulty and walked into the ambulance. He denies any numbness or tingling. He does not provide any other details. He does think that his tetanus is up-to-date less than 10 years. REVIEW OF SYSTEMS: Ten systems reviewed and are negative unless otherwise noted in the HPI PCP: Denies going to any physicians SPECIALISTS: None PAST MEDICAL HISTORY: Chronic pain, Parkinson's, "mental health problems." SOCIAL HISTORY: Currently homeless. FAMILY HISTORY: Noncontributory EXAMINATION General Appearance: Alert, no distress. Unkempt. Head: normocephalic, atraumatic. No Casarez sign. No raccoon eyes. No depression or signs of trauma Eyes: Pupils equal and round, no conjunctival pallor or injection. EOM symmetric about nystagmus or dysconjugate gaze ENT, Mouth: Mucous membranes moist. Poor dentition Neck: Normal inspection, supple no crepitus or deformity. There is reported tenderness upon examination, thus the C-collar was placed during this examination and not prior to evaluation Respiratory: Lungs are clear to auscultation. No wheezing, rhonchi or crackles Cardiovascular: Regular rate and rhythm Gastrointestinal: Abdomen is soft and nontender Back: non-tender, no bony abnormalities Neurological: GCS 15. A&O, nonfocal, normal gait. Resting pill-rolling tremor. Skin: Warm and dry, no rash. Multiple areas of superficial abrasion to the dorsum of the hands, anterior knees and subacute abrasions to the lower extremities otherwise Extremities: Moving all 4 extremities spontaneously with symmetric range of motion. Psychiatric: Flat affect. DIFFERENTIAL DIAGNOSES: Including but not limited to abrasion, fracture, sprain, strain, contusion, hemorrhage, MDM: 3:10 p.m. Reported mechanical fall with multiple areas of abrasion that do not appear to be complicated. I do not appreciate any outward signs of trauma to the head or scalp. He does complain of neck pain, thus he was placed in a C-collar during my examination. I have also ordered imaging of the head and neck by CT scan as well as plain film shoulder, low back. He is resting comfortably in no acute distress. 4:10 p.m. Plain films of the shoulder lumbar spine are unremarkable. Plain film the chest reveals a new posterior left rib fracture, new from 2016. When I examined the patient he has no tenderness in this area or complaints of pain here, thus I do not feel this clinically correlates to be acute today. CT scans of the head cervical spine are pending. 4:42 p.m. Notified by radiologist Dr. Vallejo. CT scan of the head is unremarkable for acute findings. CT scan of the cervical spine is unremarkable for acute findings. There are chronic changes noted on both that do not appear to have any acute change. At this time I have cleared the cervical collar which was placed here, and I do feel the patient stable for discharge home. He is in no acute distress with superficial abrasions that have been dressed. He will be discharge in stable condition with instructions to [facility] for further care. SUPERVISION: Patient was independently examined, but I discussed the case with my secondary supervising physician Dr. Barraza - Diagnostics Imaging Results: Imaging Impressions Chest X-Ray 09/13/17 15:12 Impression: 1. Cardiac enlargement with pulmonary vascular prominence suggestive of congestive heart failure. 2. Posterior left fifth rib fracture, new from prior examination. There is also a healed left humeral neck fracture which is new from previous study. Healed mid shaft left clavicle fracture is stable. Lumbar Spine X-Ray 09/13/17 15:12 Impression: Negative. No acute compression fracture. Shoulder X-Ray 09/13/17 15:12 Impression: Negative right shoulder radiographs for acute injury. - History Smoking Status: Current every day smoker - Objective Vital Signs: Initial Vital Signs Temperature (C) 98.2 F 09/13/17 15:05 Heart Rate 79 09/13/17 15:05 Respiratory Rate 16 09/13/17 15:05 Blood Pressure 120/76 09/13/17 15:05 O2 Sat (%) 94 09/13/17 15:05 O2 Delivery Mode Room Air Allergies/Adverse Reactions: quetiapine [From Seroquel] Allergy (Verified 01/26/17 18:52) Home Medications: Medication Instructions Recorded Carbidopa/Levodopa 25/100Mg 1.5 tab PO QID@07,,,11/17/16 [Sinemet 25/100 MG (*)] Dicyclomine [Bentyl 10 MG (*)] 10 mg PO TID 11/17/16 Entacapone [Comtan] 200 mg PO TID@,,11/17/16 Selegiline HCl [Eldepryl 5mg (*)] 5 mg PO DAILY@0700 11/17/16 Venlafaxine Xr [Effexor Xr 75MG 75 mg PO DAILY 11/17/16 (*)] Venlafaxine Xr [Effexor Xr] 150 mg PO HS 11/17/16 Carbidopa/Levo Cr 50/200Mg 1 tab PO DAILY@2300 11/18/16 [SINEMET CR 50/200 MG (*)] Departure - Departure Disposition: Home, Routine, Self-Care Clinical Impression: Abrasions of multiple sites Fall Qualifiers: Encounter type: initial encounter Qualified Code(s): W19.XXXA - Unspecified fall, initial encounter Condition: Good Instructions: Abrasion (ED) Additional Instructions: 1. Follow up with primary care physician for further care Referrals: [facility],. [Clinic] - As per Instructions
[2017-09-13 16:54] VITALS: BP 119/78
== END 2017-09-13 16:57 | disposition home or self-care (01) ==
LOC: EDUNIT#
DX: S60.511A Abrasion of right hand, initial encounter (principal); S60.512A Abrasion of left hand, initial encounter; G20 Parkinson's disease; S80.211A Abrasion, right knee, initial encounter; S80.212A Abrasion, left knee, initial encounter; F17.200 Nicotine dependence, unspecified, uncomplicated; W01.0XXA Fall on same level from slipping, tripping and stumbling without subsequent striking against object, initial encounter; Y92.89 Other specified places as the place of occurrence of the external cause
CPT/HCPCS: 70450; 71045; 72100; 72125; 73030; 99285; L0174

== ENCOUNTER 2017-09-14 13:56 | Emergency (ER) | payer MEDICAID, OTHER ==
[2017-09-14 14:01] VITALS: BP 108/71
--- NOTE | 2017-09-14 14:14 | EDPHY ---
H & P Stated Complaint: brought by kvng [facility] for long term. etoh and seizure this a.m. Time Seen by Provider: 09/14/17 14:00 HPI/ROS: CHIEF COMPLAINT: Here for medical clearance HISTORY OF PRESENT ILLNESS: 71-year-old male with Parkinson's disease presents for medical clearance. He was found this afternoon next to a bottle of beer and /or some concern that he had been drinking. Bystanders thought that he was having a seizure as well. However, the patient states that he has tremors related to Parkinson's disease and he did not have a seizure today. He has not been ill recently. He was seen in this emergency department recently after a fall and had a negative CT scan of the head and neck. No fall today. REVIEW OF SYSTEMS: complete 10 point ROS negative except at noted in the HPI - Personal History Current Tetanus/Diphtheria Vaccine: Yes Current Tetanus Diphtheria and Acellular Pertussis (TDAP): Yes Tetanus Vaccine Date: < 10 years - Medical/Surgical History Hx Asthma: No Hx Chronic Respiratory Disease: No Hx Diabetes: No Hx Cardiac Disease: No Hx Renal Disease: No Hx Cirrhosis: No Hx Alcoholism: Yes Hx HIV/AIDS: No Hx Splenectomy or Spleen Trauma: No Other PMH: Parkinson's, Orthostatic hypotension, syncope, alcohol withdrawl. mental health issues. - Social History Smoking Status: Current every day smoker - Physical Exam Exam: General Appearance: Alert, cooperative, difficult to understand because of accent and lack of teeth Eyes: Pupils equal and round, no conjunctival pallor or injection ENT, Mouth: Mucous membranes moist Neck: Normal inspection Respiratory: Lungs are clear to auscultation Cardiovascular: Regular rate and rhythm Gastrointestinal: Abdomen is soft and nontender Neurological: A&O, resting tremor bilaterally, nonfocal exam Skin: Warm and dry Extremities: Multiple scabbed over abrasions on extremities Psychiatric: Fluctuating affect Constitutional: Initial Vital Signs Temperature (C) 36.5 C 09/14/17 13:58 Heart Rate 80 09/14/17 13:58 Respiratory Rate 20 09/14/17 13:58 Blood Pressure 108/71 09/14/17 13:58 O2 Sat (%) 94 09/14/17 13:58 O2 Delivery Mode Room Air Allergies/Adverse Reactions: quetiapine [From Seroquel] Allergy (Verified 01/26/17 18:52) Home Medications: Medication Instructions Recorded Carbidopa/Levodopa 25/100Mg 1.5 tab PO QID@07,11,15,11/17/16 [Sinemet 25/100 MG (*)] Dicyclomine [Bentyl 10 MG (*)] 10 mg PO TID 11/17/16 Entacapone [Comtan] 200 mg PO TID@07,,11/17/16 Selegiline HCl [Eldepryl 5mg (*)] 5 mg PO DAILY@0700 11/17/16 Venlafaxine Xr [Effexor Xr 75MG 75 mg PO DAILY 11/17/16 (*)] Venlafaxine Xr [Effexor Xr] 150 mg PO HS 11/17/16 Carbidopa/Levo Cr 50/200Mg 1 tab PO DAILY@0 11/18/16 [SINEMET CR 50/200 MG (*)] Medical Decision Making ED Course/Re-evaluation: This patient presents for medical clearance. Breathalyzer is 0. I suspect that patient's chronic tremulousness was mistakenly thought to be a seizure. He appears to be at his baseline. Medically cleared for long term. Differential Diagnosis: Differential diagnosis includes though it is not limited to tremor, status epilepticus, hypoglycemia, intracranial hemorrhage, CVA, benzodiazepine withdrawal, alcohol withdrawal, epilepsy. Departure - Departure Disposition: Home, Routine, Self-Care Clinical Impression: Parkinsons disease, Tremor Condition: Good Instructions: Parkinson Disease (ED) Additional Instructions: [facility] has walk-in appointments for the homeless at the following days/locations. No appointment is needed. Saturday 8-10 am @ [facility] 11 AM-1 PM @ [facility] Saturday 8-10:30 AM @ [facility] Saturday 8-10 AM @ [facility] 2-4 PM @ [facility] Saturday 8-10 AM @ [facility] Referrals: [facility],. [Clinic] - As per Instructions
== END 2017-09-14 14:33 | disposition home or self-care (01) ==
LOC: EEVIPCON 13:56
DX: G20 Parkinson's disease (principal); F17.200 Nicotine dependence, unspecified, uncomplicated

== ENCOUNTER 2017-09-18 13:46 | Emergency (ER) | payer OTHER ==
--- NOTE | 2017-09-18 14:41 | CPEKG ---
Heart Rate: 81 RR Interval: 741 P-R Interval: 152 QRSD Interval: 80 QT Interval: 388 QTC Interval: 451 P [place]: 68 QRS [place]: -26 T Wave [place]: 52 EKG Severity - BORDERLINE ECG - EKG Impression: SINUS RHYTHM EKG Impression: BORDERLINE LEFT AXIS DEVIATION EKG Impression: BORDERLINE R WAVE PROGRESSION, ANTERIOR LEADS Electronically Signed By: Tressa Joya 18-Sep-2017 20:48:41
--- NOTE | 2017-09-18 14:57 | EDPHY ---
H & P Time Seen by Provider: 09/18/17 13:53 HPI/ROS: CHIEF COMPLAINT: "can't walk" HISTORY OF PRESENT ILLNESS: The patient is the 71-year-old male who presents emergency department via EMS stating that he can't walk. Per report, the patient was outside of the police department. He refused to get up and walk. EMS was called. Upon their arrival the patient got up with his wheelchair and "skipped away." Per the horser up he had no difficulty or abnormality. EMS was subsequently called back 30 min later. Patient stated he could not stand up and walk. The patient complains of a recent fall. He states he struck his left knee. He denies striking his head but did report that he may have lost consciousness. He has no headache at this time. No chest pain or shortness of breath. No abdominal pain. No recent fevers or chills. REVIEW OF SYSTEMS: My complete review of systems is negative except as mentioned in the HPI. Past Medical/Surgical History: Includes Parkinson's disease, orthostatic hypotension, syncope, alcohol withdrawal Smoking Status: Current every day smoker Physical Exam: Vitals noted. 36.8, 117/73, 87, 18, 93% on room air GENERAL: No acute distress, alert. HEENT: Eyes normal to inspection, normal pharynx, no signs of dehydration. No head trauma. NECK: No thyromegaly, no lymphadenopathy, supple. No C-spine tenderness palpation. Nexus criteria negative. RESPIRATORY: Clear to auscultation bilaterally, no rales, rhonchi or wheezing. CVS: Regular rate and rhythm, no rubs, murmurs, or gallops. Chest wall: Left sided irregular long surgical type incision scar. No surrounding erythema. No discharge. ABDOMEN: Soft, nontender, nondistended, no organomegaly. BACK: Normal to inspection, no CVA tenderness. No spinal tenderness. SKIN: Normal color, no rash, warm, dry. No pallor. EXTREMITIES: No pedal edema, no calf tenderness, no Homans sign or cords, no joint swelling. NEURO/PSYCH: Alert and oriented, normal mood and affect, normal motor sensory exam. Constitutional: Initial Vital Signs Temperature (C) 36.8 C 09/18/17 13:51 Heart Rate 87 09/18/17 13:51 Respiratory Rate 18 09/18/17 13:51 Blood Pressure 117/73 09/18/17 13:51 O2 Sat (%) 93 09/18/17 13:51 O2 Delivery Mode Room Air Allergies/Adverse Reactions: quetiapine [From Seroquel] Allergy (Verified 01/26/17 18:52) Home Medications: Medication Instructions Recorded Carbidopa/Levodopa 25/100Mg 1.5 tab PO QID@07,,,11/17/16 [Sinemet 25/100 MG (*)] Dicyclomine [Bentyl 10 MG (*)] 10 mg PO TID 11/17/16 Entacapone [Comtan] 200 mg PO TID@07,,11/17/16 Selegiline HCl [Eldepryl 5mg (*)] 5 mg PO DAILY@0700 11/17/16 Venlafaxine Xr [Effexor Xr 75MG 75 mg PO DAILY 11/17/16 (*)] Venlafaxine Xr [Effexor Xr] 150 mg PO HS 11/17/16 Carbidopa/Levo Cr 50/200Mg 1 tab PO DAILY@2300 11/18/16 [SINEMET CR 50/200 MG (*)] Medical Decision Making - Diagnostics Imaging Results: Imaging Impressions Chest X-Ray 09/18/17 14:01 Impression: 1. Stable mild cardiomegaly and prominence of pulmonary vasculature centrally. 2. No new abnormality seen within the chest. Head CT 09/18/17 15:02 Impression: 1. Mild atrophy. 2. No acute hemorrhage, hydrocephalus, or mass effect. 3. Cerebrovascular atherosclerosis. 4. No definite acute infarct. 5. Mild microvascular ischemic gliosis. 6. No epidural or subdural hematoma. 7. No change in minimal left sphenoid sinusitis. Findings and recommendations discussed with Emergency Department physician, JOSUE CHAVEZ at 15:33 hour, 09/18/2017. Final report concurs with initial preliminary interpretation. ED Course/Re-evaluation: In the emergency department I met EMS on arrival. I took report from the horser up as well as the patient. An IV was placed. Laboratory studies, EKG and head CT were ordered. Sinus rhythm at 81. Left axis deviation. Patient's CBC and chemistry were unremarkable. Troponin was negative. Head CT: Please refer the dictated report. No acute disease noted. Chest x-ray: No acute disease noted. I discussed the result with the patient. I answered all his questions. Case management was involved. Patient was given warnings prior to leaving. He will return with worsening symptoms. Differential Diagnosis: My differential includes but is not limited to ACS, acute WI, electrolyte abnormality, sugar abnormality, syncope, subarachnoid hemorrhage, subdural hematoma, epidural hematoma - Data Points Laboratory Results: Laboratory Results 09/18/17 14:43 09/18/17 14:43 09/18/17 09/18/17 09/18/17 14:46 14:43 14:43 WBC 7.11 10^3/uL 10^3/uL (3.80-9.50) RBC 4.19 10^6/uL L 10^6/uL (4.40-6.38) Hgb 12.7 g/dL L g/dL (13.7-17.5) Hct 39.3 % L % (40.0-51.0) MCV 93.8 fL fL (81.5-99.8) MCH 30.3 pg pg (27.9-34.1) MCHC 32.3 g/dL L g/dL (32.4-36.7) RDW 15.0 % % (11.5-15.2) Plt Count 176 10^3/uL 10^3/uL (150-400) MPV 9.9 fL fL (8.7-11.7) Neut % (Auto) 71.4 % % (39.3-74.2) Lymph % (Auto) 20.7 % % (15.0-45.0) [place] % (Auto) 6.8 % % (4.5-13.0) Eos % (Auto) 0.7 % % (0.6-7.6) Baso % (Auto) 0.1 % L % (0.3-1.7) Nucleat RBC Rel Count 0.0 % % (0.0-0.2) Absolute Neuts (auto) 5.08 10^3/uL 10^3/uL (1.70-6.50) Absolute Lymphs (auto) 1.47 10^3/uL 10^3/uL (1.00-3.00) Absolute Monos (auto) 0.48 10^3/uL 10^3/uL (0.30-0.80) Absolute Eos (auto) 0.05 10^3/uL 10^3/uL (0.03-0.40) Absolute Basos (auto) 0.01 10^3/uL L 10^3/uL (0.02-0.10) Absolute Nucleated RBC 0.00 10^3/uL 10^3/uL (0-0.01) Immature Gran % 0.3 % % (0.0-1.1) Immature Gran # 0.02 10^3/uL 10^3/uL (0.00-0.10) Sodium 148 mEq/L H mEq/L (135-145) Potassium 4.2 mEq/L mEq/L (3.3-5.0) Chloride 110 mEq/L mEq/L (97-110) Carbon Dioxide 27 mEq/l mEq/l (22-31) Anion Gap 11 mEq/L mEq/L (8-16) BUN 22 mg/dL mg/dL (7-23) Creatinine 1.0 mg/dL mg/dL (0.7-1.3) Estimated GFR > 60 Glucose 124 mg/dL H mg/dL (70-100) Calcium 9.8 mg/dL mg/dL (8.5-10.4) POC Troponin I 0.00 ng/mL ng/mL (0.00-0.08) Point of Care Test Results: Chemistry 09/18/17 14:46 POC Troponin I 0.00 ng/mL ng/mL (0.00-0.08) Departure - Departure Disposition: Home, Routine, Self-Care Clinical Impression: Parkinson disease, Near syncope, Fall Condition: Good Instructions: Syncope (ED), Fall Prevention for Older Adults (ED) Additional Instructions: Return with increasing headache, weakness, numbness, or any other concerns. Referrals: [facility],. [Clinic] - 5-7 days, call for appt.
[2017-09-18 15:00] LABS: PLATELET COUNT 176 10^3/uL (150-400)
[2017-09-18 15:25] VITALS: BP 150/85
== END 2017-09-18 16:42 | disposition home or self-care (01) ==
LOC: EDUNIT#
DX: G20 Parkinson's disease (principal); R55 Syncope and collapse; F17.200 Nicotine dependence, unspecified, uncomplicated
CPT/HCPCS: 84484-PO

== ENCOUNTER 2017-09-19 20:14 | Emergency (ER) | payer OTHER ==
--- NOTE | 2017-09-19 20:53 | EDPHY ---
H & P Stated Complaint: FALL FROM WHEELCHAIR, lulu hx Time Seen by Provider: 09/19/17 20:40 HPI/ROS: CHIEF COMPLAINT: Fall from wheelchair HISTORY OF PRESENT ILLNESS: The patient presents to the ED after a reported fall from his wheelchair. The patient is currently homeless. He has a history of alcohol use. The patient also reportedly has a history of Parkinson's disease. This is his 4th visit to the emergency department this week. He has had multiple presentations with a similar complaint. He has had 2-CT scans of his head this week. He was seen in the emergency department last yesterday. The patient did sustain a superficial abrasion to his right knee. The patient does report using alcohol today. REVIEW OF SYSTEMS: A comprehensive 10 point review of systems is otherwise negative aside from elements mentioned in the history of present illness. Source: Patient - Personal History Current Tetanus Diphtheria and Acellular Pertussis (TDAP): Unsure Tetanus Vaccine Date: < 10 years - Medical/Surgical History Hx Asthma: No Hx Chronic Respiratory Disease: No Hx Diabetes: No Hx Cardiac Disease: No Hx Renal Disease: No Hx Cirrhosis: No Hx Alcoholism: Yes Hx HIV/AIDS: No Hx Splenectomy or Spleen Trauma: No Other PMH: Parkinson's, Orthostatic hypotension, syncope, alcohol withdrawl. mental health issues. - Social History Smoking Status: Current every day smoker - Physical Exam Exam: General Appearance: Disheveled male Head: Normocephalic atraumatic Neck: No midline tenderness Eyes: Pupils equal and round no pallor or injection ENT, Mouth: Poor dentition Respiratory: There are no retractions, lungs are clear to auscultation Cardiovascular: Regular rate and rhythm Gastrointestinal: Abdomen is soft and nontender, no masses, bowel sounds normal Neurological: Grossly normal motor exam with 5/5 strength Skin: Superficial abrasions Musculoskeletal: Neck is supple nontender Extremities: symmetrical, full range of motion Constitutional: Initial Vital Signs Temperature (C) 36.7 C 09/19/17 20:20 Heart Rate 76 09/19/17 20:20 Respiratory Rate 20 09/19/17 20:20 Blood Pressure 102/54 L 09/19/17 20:20 O2 Sat (%) 95 09/19/17 20:20 O2 Delivery Mode Room Air Allergies/Adverse Reactions: quetiapine [From Seroquel] Allergy (Verified 09/19/17 20:20) Home Medications: Medication Instructions Recorded Carbidopa/Levodopa 25/100Mg 1.5 tab PO QID@07,11,15,19 11/17/16 [Sinemet 25/100 MG (*)] Dicyclomine [Bentyl 10 MG (*)] 10 mg PO TID 11/17/16 Entacapone [Comtan] 200 mg PO TID@07,11,19 11/17/16 Selegiline HCl [Eldepryl 5mg (*)] 5 mg PO DAILY@0700 11/17/16 Venlafaxine Xr [Effexor Xr 75MG 75 mg PO DAILY 11/17/16 (*)] Venlafaxine Xr [Effexor Xr] 150 mg PO HS 11/17/16 Carbidopa/Levo Cr 50/200Mg 1 tab PO DAILY@2300 11/18/16 [SINEMET CR 50/200 MG (*)] Medical Decision Making ED Course/Re-evaluation: The patient presents to the ED with likely malingering. The patient has had multiple ED visits this week. The patient reportedly is not eligible to go to the homeless detention secondary to noncompliance. The patient has had 2 CT scans this week. He has superficial abrasions noted on exam. He has no vital sign abnormalities. There is nothing to suggest an acute infection or long bone fracture. We have verified that he is unable to go to the detention this evening. He will have to go through the standard intake process tomorrow morning. At this point time I see no basis for hospitalization. The patient will be discharged from the emergency department. - Data Points Laboratory Results: 09/19/17 21:03 Ethyl Alcohol < 10 mg/dL mg/dL (0-10) Departure - Departure Disposition: Home, Routine, Self-Care Clinical Impression: Leg abrasion, Malingering Condition: Good Instructions: Abrasion (ED) Additional Instructions: 1. Your eligible to stay at the homeless detention however you will have to undergo the intake process tomorrow morning. 2. I recommend establishing primary care with [facility]. Referrals: [facility],. [Clinic] - As per Instructions
[2017-09-19 23:36] VITALS: BP 109/78
== END 2017-09-19 23:40 | disposition home or self-care (01) ==
LOC: EDUNIT#
DX: S80.211D Abrasion, right knee, subsequent encounter (principal); G20 Parkinson's disease; F17.200 Nicotine dependence, unspecified, uncomplicated; Z76.5 Malingerer [conscious simulation]; W05.0XXD Fall from non-moving wheelchair, subsequent encounter
CPT/HCPCS: G0480

== ENCOUNTER 2017-09-20 05:13 | Emergency (ER) | payer OTHER ==
[2017-09-20 05:18] VITALS: BP 114/64
[2017-09-20] MEDS ORDERED: ACETAMINOPHEN 500 MG TAB ONE (05:27)
--- NOTE | 2017-09-20 05:33 | EDPHY ---
H & P Stated Complaint: fell pushing wheelchair denies hitting head or LOC Time Seen by Provider: 09/20/17 05:15 HPI/ROS: Chief Complaint: Fall HPI: 71-year-old male well known to this emergency department. He is homeless. Has a history of Parkinson's disease and multiple falls. This is the 5th visit that this patient is had emergency department the last week. He has had 2 CT scans and multiple x-rays after complaints of falls in injury. This morning he was standing at the bus stop outside of the hospital when he states he had mechanical fall or pushing his wheelchair. EMS was called. On arrival they found him on the ground. He was able to stand and walk to the ambulance without any difficulty. He denies hitting his head. No loss of conscious. Complaining of some right-sided chest wall pain. He does have a known rib fracture in that area from the past. His vital signs have been normal for EMS. Otherwise he has been at his baseline. There but consumes concerns about malingering in this patient from prior ED visits. He is currently homeless and has been [place] from the [place] [facility] because he is noncompliant with the regulations. He was discharged earlier in my shift with instructions to follow up with the [place] [facility] intake today. ROS: 10 point Review of Systems is negative except as noted in the HPI. PMH: Parkinson's disease, high orthostatic hypotension, alcoholism, alcohol withdrawal, syncope Social History: Positive smoking, positive alcohol, currently homeless Family History: non-contributory Physical Exam: Gen: Awake, Alert, No Distress, frail-appearing HEENT: Nose: no rhinorrhea Eyes: PERRLA, EOMI Mouth: Moist mucosa Neck: Supple, no JVD Chest: Mild right-sided chest wall tenderness which is distractible, lungs clear to auscultation Heart: S1, S2 normal, no murmur Abd: Soft, non-tender, no guarding Back: no CVA tenderness, no midline tenderness Ext: no edema, non-tender Skin: no rash Neuro: CN II-XII intact, Sensation grossly intact, Strength 5/5 in bilateral upper and lower extremities - Personal History Current Tetanus/Diphtheria Vaccine: Unsure Current Tetanus Diphtheria and Acellular Pertussis (TDAP): Unsure Tetanus Vaccine Date: < 10 years - Medical/Surgical History Hx Asthma: No Hx Chronic Respiratory Disease: No Hx Diabetes: No Hx Cardiac Disease: No Hx Renal Disease: No Hx Cirrhosis: No Hx Alcoholism: Yes Hx HIV/AIDS: No Hx Splenectomy or Spleen Trauma: No Other PMH: Parkinson's, Orthostatic hypotension, syncope, alcohol withdrawl. mental health issues. - Social History Smoking Status: Current every day smoker Constitutional: Initial Vital Signs Temperature (C) 36.3 C 09/20/17 05:17 Heart Rate 70 09/20/17 05:17 Respiratory Rate 16 09/20/17 05:17 Blood Pressure 114/64 09/20/17 05:17 O2 Sat (%) 95 09/20/17 05:17 O2 Delivery Mode Room Air Allergies/Adverse Reactions: quetiapine [From Seroquel] Allergy (Verified 09/20/17 05:18) Home Medications: Medication Instructions Recorded Carbidopa/Levodopa 25/100Mg 1.5 tab PO QID@07,11,15,11/17/16 [Sinemet 25/100 MG (*)] Dicyclomine [Bentyl 10 MG (*)] 10 mg PO TID 11/17/16 Entacapone [Comtan] 200 mg PO TID@07,11,19 11/17/16 Selegiline HCl [Eldepryl 5mg (*)] 5 mg PO DAILY@0700 11/17/16 Venlafaxine Xr [Effexor Xr 75MG 75 mg PO DAILY 11/17/16 (*)] Venlafaxine Xr [Effexor Xr] 150 mg PO HS 11/17/16 Carbidopa/Levo Cr 50/200Mg 1 tab PO DAILY@2300 11/18/16 [SINEMET CR 50/200 MG (*)] Medical Decision Making ED Course/Re-evaluation: 71-year-old male brought in by EMS status post complaining of fall or pushing his wheelchair. There are some concerns patient is malingering. He has had multiple x-rays and CT scans within the last week. He has a known rib fracture. Does not have any new findings on examination compared to his prior presentations. His breath sounds are clear. His oxygen saturations are excellent on room air. Vital signs are otherwise unremarkable. He is ambulating unassisted in the emergency department. As he had acute medical process at this time. He has been encouraged to follow up at [facility] and with the intake with the homeless [place] [facility]. Departure - Departure Disposition: Home, Routine, Self-Care Clinical Impression: Parkinson disease, Accident due to mechanical fall without injury Condition: Good Instructions: Fall Prevention (ED) Additional Instructions: [facility]3 days. Referrals: [facility],. [Clinic] - As per Instructions
[2017-09-20] MEDS ORDERED: ACETAMINOPHEN 500 MG TAB PO ONE (05:40)
== END 2017-09-20 05:42 | disposition home or self-care (01) ==
LOC: EDUNIT#
DX: G20 Parkinson's disease (principal); F17.200 Nicotine dependence, unspecified, uncomplicated; W05.0XXA Fall from non-moving wheelchair, initial encounter; Y92.521 Bus station as the place of occurrence of the external cause; Y99.8 Other external cause status; Y93.89 Activity, other specified

== ENCOUNTER 2017-09-21 03:09 | Emergency (ER) | payer OTHER ==
[~2017-09-21 03:09] MED LIST: CEPHALEXIN 500 MG CAP PO SCH
--- NOTE | 2017-09-21 04:19 | EDPHY ---
H & P Stated Complaint: left leg laceration, pain, swelling r/f fall Time Seen by Provider: 09/21/17 03:10 HPI/ROS: HPI The patient presents with left leg pain after a fall yesterday. The patient says he fell while pushing his wheelchair, he landed on his left knee. He sustained an abrasion. He had increased pain tonight so we called 911. Paramedics picked him up at the corner of [address] [facility]. The patient explains that he is newly homeless, no longer allowed to stay at the homeless intermediate. He has been in snf and in the emergency department frequently in the last several days. Apparently, he was arrested at the [facility] for trespassing. He does not have any fevers or chills, nausea or vomiting.. REVIEW OF SYSTEMS Constitutional: No fever, no chills. Eyes: No discharge. ENT: No sore throat. Cardiovascular: No chest pain, no palpitations. Respiratory: No cough, no shortness of breath. Gastrointestinal: No abdominal pain, no vomiting. Genitourinary: No hematuria. Musculoskeletal: No back pain. Skin: No rashes. Neurological: No headache. PMHx: History of Parkinson's disease, orthostatic hypotension, mental health Soc Hx: Newly homeless PHYSICAL General Appearance: Alert, no distress, generally disheveled Eyes: Pupils equal and round no pallor or injection ENT, Mouth: Mucous membranes moist Respiratory: There are no retractions, lungs are clear to auscultation Cardiovascular: Regular rate and rhythm Gastrointestinal: Abdomen is soft and non-tender, no masses, bowel sounds normal Neurological: A&O, moves all extremities Skin: Warm and dry, no rashes Musculoskeletal: Neck is supple non tender Extremities: Left leg with abrasion of anterior knee with no active bleeding, there is 1+ edema of the left lower extremity with slight erythema Psychiatric: Patient is oriented X 3, there is no agitation Source: Patient, EMS Exam Limitations: No limitations - Personal History Tetanus Vaccine Date: < 10 years - Medical/Surgical History Hx Asthma: No Hx Chronic Respiratory Disease: No Hx Diabetes: No Hx Cardiac Disease: No Hx Renal Disease: No Hx Cirrhosis: No Hx Alcoholism: Yes Hx HIV/AIDS: No Hx Splenectomy or Spleen Trauma: No Other PMH: Parkinson's, Orthostatic hypotension, syncope, alcohol withdrawl. mental health issues. - Social History Smoking Status: Former smoker Constitutional: Initial Vital Signs Temperature (C) 36.8 C 09/21/17 03:19 Heart Rate 89 09/21/17 03:19 Respiratory Rate 20 09/21/17 03:19 Blood Pressure 123/79 H 09/21/17 03:19 O2 Sat (%) 95 09/21/17 03:19 O2 Delivery Mode Room Air Allergies/Adverse Reactions: quetiapine [From Seroquel] Allergy (Verified 09/21/17 03:15) Home Medications: Medication Instructions Recorded Carbidopa/Levodopa 25/100Mg 1.5 tab PO QID@07,11,15,11/17/16 [Sinemet 25/100 MG (*)] Dicyclomine [Bentyl 10 MG (*)] 10 mg PO TID 11/17/16 Entacapone [Comtan] 200 mg PO TID@07,11,19 11/17/16 Selegiline HCl [Eldepryl 5mg (*)] 5 mg PO DAILY@0700 11/17/16 Venlafaxine Xr [Effexor Xr 75MG 75 mg PO DAILY 11/17/16 (*)] Venlafaxine Xr [Effexor Xr] 150 mg PO HS 11/17/16 Carbidopa/Levo Cr 50/200Mg 1 tab PO DAILY@2300 11/18/16 [SINEMET CR 50/200 MG (*)] Cephalexin [Keflex (*)] 500 mg PO Q6H #28 cap 09/21/17 Medical Decision Making - Diagnostics Imaging Results: DVT ultrasound of the left leg shows soft tissue swelling without any clots present, discussed with Dr. Herbert of Radiology. Imaging: Discussed imaging studies w/ outpatient physical therapist Radiologist, I viewed and interpreted images myself Differential Diagnosis: 71-year-old male who presents brought in by ambulance from the street, history of Parkinson's disease, orthostatic hypotension, daily visits over the last 4 days to the emergency department, now with left knee pain after a fall which sounds to be mechanical. On exam, he does have any abrasion with trace amount of lower extremity edema and erythema with minimal tenderness. Differential diagnosis includes DVT, cellulitis, peripheral edema. In the emergency department, patient's wounds were cleansed and dressed. DVT study was performed and demonstrated no DVT with soft tissue swelling. I am concerned that he may have a mild cellulitis beginning from his abrasion. I will treat him with Keflex, 1st dose given here and prescription bottle issued to him via the [employer] program. - Data Points Medications Given: Discontinued Medications Cephalexin (Keflex 500 Mg Prepack#4) 1 btl TAKEHOME EDNOW ONE PRN Reason: Protocol Stop: 09/21/17 05:18 Last Admin: 09/21/17 05:37 Dose: 1 btl Cephalexin HCl (Keflex) 500 mg PO EDNOW ONE PRN Reason: Protocol Stop: 09/21/17 05:18 Last Admin: 09/21/17 05:37 Dose: 500 mg Departure - Departure Disposition: Home, Routine, Self-Care Clinical Impression: Abrasion of left knee Qualifiers: Encounter type: initial encounter Qualified Code(s): S80.212A - Abrasion, left knee, initial encounter Condition: Good Instructions: Cephalexin (By mouth), Cellulitis (ED), Abrasion (ED) Additional Instructions: Please take the antibiotic to prevent any infection. Please keep your wound clean and dry. Referrals: [facility],. [Clinic] - As per Instructions Prescriptions: Cephalexin [Keflex (*)] 500 mg PO Q6H #28 cap
[2017-09-21] MEDS ORDERED: CEPHALEXIN 500 MG CAP PO ONE (05:17)
[2017-09-21] MEDS ORDERED: CEPHALEXIN 500MG PREPACK#4 BTL TAKEHOME ONE (05:17)
[2017-09-21 05:37] VITALS: BP 126/76
== END 2017-09-21 05:59 | disposition home or self-care (01) ==
DX: S80.212A Abrasion, left knee, initial encounter (principal); M79.662 Pain in left lower leg; W18.39XA Other fall on same level, initial encounter; Y99.8 Other external cause status; Y93.89 Activity, other specified; G20 Parkinson's disease; Z87.891 Personal history of nicotine dependence

== ENCOUNTER 2017-09-23 01:35 | Emergency (ER) | payer OTHER ==
--- NOTE | 2017-09-23 01:44 | EDPHY ---
H & P Time Seen by Provider: 09/23/17 01:42 HPI/ROS: HPI CHIEF COMPLAINT: Right shoulder pain, left knee pain after fall HISTORY OF PRESENT ILLNESS: 71-year-old male very familiar to myself as well as the emergency room, who is homeless, has Parkinson's disease in his wheelchair bound, he states some point over the last dated 2 days he fell out of his wheelchair landing on his right shoulder and left knee. Complains of left knee pain and right shoulder pain. He denies any other areas of injury. Decided come the emergency room tonight by EMS for left knee pain and right shoulder. He does have full range of motion of both of these extremities. On exam there is no significant trauma noted on exam however there is an abrasion over the left knee. Past Medical History: Failure to thrive, Parkinson's disease, homelessness, chronic back pain Past Surgical History: Denies recent surgery Social History: Homeless, denies illicit drugs. Family History: Noncontributory ROS REVIEW OF SYSTEMS: A comprehensive 10 point review of systems is otherwise negative aside from elements mentioned in the history of present illness. Exam Constitutional elderly, unkept, triage nursing summary reviewed, vital signs reviewed, awake/alert. Eyes normal conjunctivae and sclera, EOMI, PERRLA. HENT normal inspection, atraumatic, moist mucus membranes, no epistaxis, neck supple/ no meningismus, no raccoon eyes. Respiratory clear to auscultation bilaterally, normal breath sounds, no respiratory distress, no wheezing. Cardiovascular rate normal, regular rhythm, no murmur, no edema, distal pulses normal. Gastrointestinal soft, non-tender, no rebound, no guarding, normal bowel sounds, no distension, no pulsatile mass. Genitourinary no CVA tenderness. Musculoskeletal : Right shoulder: Mild tender palpation right lateral shoulder however full range of motion, neurovascularly intact distally with good distal pulse good cap refill, no significant trauma noted on the right shoulder. Axillary nerve intact. Left knee: Abrasion over the anterior left knee. No significant swelling noted. Full range of motion of the left knee. no midline vertebral tenderness, full range of motion, no calf swelling, no tenderness of extremities, no meningismus, good pulses, neurovascularly intact. Skin sunburn down legs. Left knee abrasion. Small. Neurologic awake, alert and oriented x 3, AAOx3, moves all 4 extremities equally, motor intact, sensory intact, CN II-XII intact, normal cerebellar, normal vision, normal speech. Psychiatric normal mood/affect. Heme/Lymph/Immune no lymphadenopathy. Differential Diagnosis: Includes but is not limited to in a particular order multiple contusions, mechanical trip and fall, shoulder strain, shoulder fracture, knee contusion knee fracture, abrasion, soft tissue injury Medical Decision Making: Plan for this patient x-ray left knee and x-ray right shoulder for evaluation for trauma. If these x-rays are unremarkable patient can be safely discharged from the emergency room. Re-evaluation: X-ray reviewed of the left knee and x-ray reviewed of the right shoulder negative for acute fracture or malalignment. Images were interpreted by myself. Recommend ice, elevation, anti-inflammatories. Torsion precautions discussed patient understands return emergency room worsening pain swelling questions or concerns. Source: Patient, EMS - Personal History Tetanus Vaccine Date: < 10 years - Medical/Surgical History Hx Asthma: No Hx Chronic Respiratory Disease: No Hx Diabetes: No Hx Cardiac Disease: No Hx Renal Disease: No Hx Cirrhosis: No Hx Alcoholism: Yes Hx HIV/AIDS: No Hx Splenectomy or Spleen Trauma: No Other PMH: Parkinson's, Orthostatic hypotension, syncope, alcohol withdrawl. mental health issues. - Social History Smoking Status: Former smoker Constitutional: Initial Vital Signs Temperature (C) 36.6 C 09/23/17 01:50 Heart Rate 80 09/23/17 01:50 Respiratory Rate 16 09/23/17 01:50 Blood Pressure 104/61 09/23/17 01:50 O2 Sat (%) 96 09/23/17 01:50 O2 Delivery Mode Room Air Allergies/Adverse Reactions: quetiapine [From Seroquel] Allergy (Verified 09/23/17 01:50) Home Medications: Medication Instructions Recorded Carbidopa/Levodopa 25/100Mg 1.5 tab PO QID@07,,,11/17/16 [Sinemet 25/100 MG (*)] Dicyclomine [Bentyl 10 MG (*)] 10 mg PO TID 11/17/16 Entacapone [Comtan] 200 mg PO TID@,,11/17/16 Selegiline HCl [Eldepryl 5mg (*)] 5 mg PO DAILY@0700 11/17/16 Venlafaxine Xr [Effexor Xr 75MG 75 mg PO DAILY 11/17/16 (*)] Venlafaxine Xr [Effexor Xr] 150 mg PO HS 11/17/16 Carbidopa/Levo Cr 50/200Mg 1 tab PO DAILY@2300 11/18/16 [SINEMET CR 50/200 MG (*)] Cephalexin [Keflex (*)] 500 mg PO Q6H #28 cap 09/21/17 Departure - Departure Disposition: Home, Routine, Self-Care Clinical Impression: Multiple contusions Condition: Good Instructions: Contusion in Adults (ED) Additional Instructions: 1. Recommend elevation of her legs 2. Recommend ice. 3. Anti-inflammatory pain medicine like Tylenol or Motrin for pain control 4. Return to the emergency room if worsening pain questions or concerns. Referrals: NONE *PRIMARY CARE P,. [Primary Care Provider] - As per Instructions
[2017-09-23 01:53] VITALS: BP 104/61
--- NOTE | 2017-09-24 19:02 | ASMTCMCOM ---
CM Note CM Note Notes: Received a call from Mona Homeless Outreach RN at [facility] ([phone], ext.[phone]; or [employer] ), requesting any information re:pt's recent ED visits and overall background. Pt was currently at and this was his first visit to ; pt being seen by Dr Shore. We discussed pt's various past [facility] admissions and ED visits, and faxed over CM Discharge Summary Reports from pt's last two admissions: 01/01/17 and 12/15/16. Per chart review, pt has reported that he is not allowed to stay at the shelters but Mona says she called Coordinated Entry at [facility] and it seems patient has not actually completed the CE process yet. Mona was going to have patient go to this afternoon and hopefully be able to stay there tonight but staff at said they wouldn't be able to complete his screening today and if he showed up there he would not be allowed to stay there tonight. and are closed tomorrow for the holiday so the soonest patient would be able to complete CE is 09/26. This CM called Phi Raymundo ([phone]) [employer] M[employer] Operator of Programs at [facility] and confirmed that pt is not currently allowed to stay there. Pt is barred from [facility] until 10/02/17 due to not leaving the property when asked. Pt is well-known to [place] [employer] and its Homeless Outreach Team: Officer Brent ([phone]) or Officer Yanelis ([phone]). Please feel free to contact for further assistance. consulted with Phi at [facility] and Yodit Stauffer, Director of CM at [facility] (who are both very familiar w/patient), and it was decided that patient would be asked to leave and would have to stay on the streets or rent a hotel room (which he supposedly has been able to do in the past and has financial means to do) tonight. Pt initially refused to leave but eventually staff was able to assist patient out of the building. Once outside, pt supposedly was able to stand up out of his wheelchair, ambulated well and walked away. If pt returns to ED (and after any acute or emergent medical condition has been ruled out), consider continuing collaboration with [facility], [facility], [facility], and [facility] team. Also refer to various past CM Reports for additional background information. Date Signed: 09/24/2017 07:01 PM Electronically Signed By:Kristan Negron RN
== END 2017-09-23 03:09 | disposition home or self-care (01) ==
LOC: EDUNIT#
DX: S40.011A Contusion of right shoulder, initial encounter (principal); G20 Parkinson's disease; Z87.891 Personal history of nicotine dependence; W05.0XXA Fall from non-moving wheelchair, initial encounter

== ENCOUNTER 2017-09-24 20:41 | Emergency (ER) | payer OTHER ==
[2017-09-24] MEDS ORDERED: LET GEL TOPICAL 1 EA SYR TP ONE (21:22)
--- NOTE | 2017-09-24 21:29 | EDPHY ---
H & P Stated Complaint: fall Time Seen by Provider: 09/24/17 20:51 HPI/ROS: CHIEF COMPLAINT: Fall HISTORY OF PRESENT ILLNESS: This is a 71-year-old male, well-known to the emergency department because of frequent visits, who presents after a fall. He was seen here on 09/13, 09/14,09/18, 09/19, 09/20, 09/21,and September 23. He arrives by ambulance tonight after reportedly falling. He tells me that he stood up to urinate and believes that he possibly had a syncopal episode. He has a history of orthostatic hypotension and frequent falls. He complains of pain on the top of his head, at the site of an abrasion. He did not strike his head and lose consciousness. He denies other injuries. REVIEW OF SYSTEMS: A ten point review of systems was performed and is negative with the exception of the items mentioned in the HPI. Past medical history: 1. Parkinson's disease 2. Orthostatic hypotension 3. Syncope 4. Alcohol abuse Social history: He is homeless. He has a history of alcohol abuse and tells me that he is not currently drinking alcohol. He is a former smoker but denies any current use of tobacco products. He states that he does not use illicit drugs. General Appearance: Alert. Vital signs reviewed. Blood pressure 161/91. Head: There is an abrasion over the right frontotemporal scalp. No laceration. No palpable skull deformity. Eyes: Pupils equal and round, no conjunctival injection, no discharge. Anicteric. ENT, Mouth: Mucous membranes are slightly dry, no oropharyngeal erythema or edema. Neck: Nontender to palpation over the cervical spine in the midline. Respiratory: Lungs are clear to auscultation; no wheezes, rales, or rhonchi. Cardiovascular: Regular rate and rhythm; no murmur, rub, or gallop. Gastrointestinal: Abdomen is thin, soft and nontender, no masses or organomegaly, bowel sounds normal. Right inguinal hernia, reducible. Skin: Warm and dry, no rashes on exposed skin, normal color. Back: Nontender to palpation over the thoracolumbar spine. Extremities: Left lower extremity edema, no calf tenderness or swelling. Abrasions and scabbing over both knees. Neurological: Alert and oriented. Moving all four extremities easily and equally. Pill rolling tremor involving the right upper extremity. Psychiatric: Normal affect. - Personal History Current Tetanus Diphtheria and Acellular Pertussis (TDAP): Yes Tetanus Vaccine Date: < 10 years - Medical/Surgical History Hx Asthma: No Hx Chronic Respiratory Disease: No Hx Diabetes: No Hx Cardiac Disease: No Hx Renal Disease: No Hx Cirrhosis: No Hx Alcoholism: Yes Hx HIV/AIDS: No Hx Splenectomy or Spleen Trauma: No Other PMH: Parkinson's, Orthostatic hypotension, syncope, alcohol withdrawl. mental health issues. - Social History Smoking Status: Former smoker Constitutional: Initial Vital Signs Temperature (C) 36.4 C 09/24/17 20:50 Heart Rate 68 09/24/17 20:50 Respiratory Rate 20 09/24/17 20:50 Blood Pressure 161/91 H 09/24/17 20:50 O2 Sat (%) 94 09/24/17 20:50 O2 Delivery Mode Room Air Allergies/Adverse Reactions: quetiapine [From Seroquel] Allergy (Verified 09/24/17 20:48) Home Medications: Medication Instructions Recorded Carbidopa/Levodopa 25/100Mg 1.5 tab PO QID@07,11,15,11/17/16 [Sinemet 25/100 MG (*)] Dicyclomine [Bentyl 10 MG (*)] 10 mg PO TID 11/17/16 Entacapone [Comtan] 200 mg PO TID@07,11,19 11/17/16 Selegiline HCl [Eldepryl 5mg (*)] 5 mg PO DAILY@0700 11/17/16 Venlafaxine Xr [Effexor Xr 75MG 75 mg PO DAILY 11/17/16 (*)] Venlafaxine Xr [Effexor Xr] 150 mg PO HS 11/17/16 Carbidopa/Levo Cr 50/200Mg 1 tab PO DAILY@2300 11/18/16 [SINEMET CR 50/200 MG (*)] Cephalexin [Keflex (*)] 500 mg PO Q6H #28 cap 09/21/17 Medical Decision Making ED Course/Re-evaluation: 71-year-old male with Parkinson's disease who is seen here frequently. He is homeless. He [facility]. This patient is currently not allowed to stay in the homeless shelters. He is apparently in the process of completing the coordinated intake at [facility] but will be unable to complete this until after the 25 of September holiday (tomorrow). At this point in time there is nowhere for him to stay. Case management from [facility] and the hospital and other community resources have all worked with this patient in an attempt to secure lodging. He has stayed in a motel, with his own money, in the past but tells me that he is unable to do so right now. Aside from a scalp abrasion I have not found any other injuries related to tonight's fall. I will be discharging him from the emergency department. I do not suspect intracranial hemorrhage. He is neurologically intact. He does not take blood thinners. I have no reason to suspect skull fracture, based upon my physical exam. He is not experiencing neck pain at the time of my evaluation. He does not have a laceration that required suturing. His scalp abrasion was cleaned and he was discharged. Differential Diagnosis: I considered a differential diagnosis that includes but is not limited to abrasion, cephalohematoma, laceration, skull fracture, concussion, and intracranial hemorrhage. - Data Points Medications Given: Discontinued Medications Tetracaine/Epinephrine/Lidocaine (Let Gel Topical) 1 ea TP EDNOW ONE Stop: 09/24/17 21:23 Last Admin: 09/24/17 21:24 Dose: 1 ea Departure - Departure Disposition: Home, Routine, Self-Care Clinical Impression: Scalp abrasion Qualifiers: Encounter type: initial encounter Qualified Code(s): S00.01XA - Abrasion of scalp, initial encounter Condition: Good Instructions: Abrasion (ED) Additional Instructions: Keep the scrape on top of your head clean and dry. Referrals: [facility],. [Clinic] - As per Instructions
[2017-09-24 22:18] VITALS: BP 155/84
== END 2017-09-24 22:18 | disposition home or self-care (01) ==
LOC: EDUNIT#
DX: S00.01XA Abrasion of scalp, initial encounter (principal); G20 Parkinson's disease; Z87.891 Personal history of nicotine dependence; W18.39XA Other fall on same level, initial encounter; Y99.8 Other external cause status; Y93.89 Activity, other specified

== ENCOUNTER 2018-01-30 22:06 | Emergency (ER) | payer OTHER ==
[2018-01-30 22:21] VITALS: BP 161/102
--- NOTE | 2018-01-30 22:21 | EDPHY ---
H & P Time Seen by Provider: 01/30/18 22:11 HPI/ROS: Chief Complaint: Fall, knee pain and neck pain HPI: 72-year-old male with a history of Parkinson's disease, well known to this emergency department. He was placed under arrest by the police for an outstanding warrant. Patient is being brought in for medical clearance. Patient states that he fell 3 hr ago. He has a history of frequent falls. He is normally gets around in a wheelchair but is able to ambulate on occasion. Patient states that he woke up after sleeping on the bus and felt a little stiff which is usual. He got up and fell onto his right knee. He sustained an abrasion. He is also complaining of some pain in his lateral neck which is chronic. He also has a right indirect inguinal hernia that is causing him some mild discomfort. Denies any loss of consciousness. No headache. No numbness or weakness. No new neurologic symptoms. No fevers or chills. No cough. ROS: 10 systems were reviewed and were negative except those elements noted in the HPI. PMH: Parkinson's disease, cervical fracture, frequent falls Social History: No smoking Family History: non-contributory Physical Exam: Gen: Awake, Alert, No Distress HEENT: Nose: no rhinorrhea Eyes: PERRLA, EOMI Mouth: Moist mucosa Neck: Supple, no JVD, mild right paraspinal soft tissue spasm. No midline tenderness or step-offs Chest: nontender, lungs clear to auscultation Heart: S1, S2 normal, no murmur Abd: Soft, non-tender, no guarding, patient has a large indirect right inguinal hernia which is easily reduced Back: no CVA tenderness, no midline tenderness Ext: no edema, non-tender, right infrapatellar abrasion, no bony tenderness. Full flexion extension. Negative drawer sign. No deformity. Skin: no rash Neuro: CN II-XII intact, Sensation grossly intact, Strength 5/5 in bilateral upper and lower extremities - Personal History Tetanus Vaccine Date: < 10 years - Medical/Surgical History Hx Asthma: No Hx Chronic Respiratory Disease: No Hx Diabetes: No Hx Cardiac Disease: No Hx Renal Disease: No Hx Cirrhosis: No Hx Alcoholism: Yes Hx HIV/AIDS: No Hx Splenectomy or Spleen Trauma: No Other PMH: Parkinson's, Orthostatic hypotension, syncope, alcohol withdrawl. mental health issues. - Social History Smoking Status: Former smoker Allergies/Adverse Reactions: quetiapine [From Seroquel] Allergy (Verified 01/30/18 22:21) Home Medications: Medication Instructions Recorded Carbidopa/Levodopa 25/100Mg 1.5 tab PO QID@07,,,11/17/16 [Sinemet 25/100 MG (*)] Dicyclomine [Bentyl 10 MG (*)] 10 mg PO TID 11/17/16 Entacapone [Comtan] 200 mg PO TID@07,,11/17/16 Selegiline HCl [Eldepryl 5mg (*)] 5 mg PO DAILY@0700 11/17/16 Venlafaxine Xr [Effexor Xr 75MG 75 mg PO DAILY 11/17/16 (*)] Venlafaxine Xr [Effexor Xr] 150 mg PO HS 11/17/16 Carbidopa/Levo Cr 50/200Mg 1 tab PO DAILY@2300 11/18/16 [SINEMET CR 50/200 MG (*)] Cephalexin [Keflex (*)] 500 mg PO Q6H #28 cap 09/21/17 Medical Decision Making ED Course/Re-evaluation: 72-year-old male with a right knee abrasion status post fall. He is being brought in for medical clearance. He does not believe is broken and I concur. He has no bony tenderness. Full range of motion without pain. He has an easily reducible inguinal hernia. No other acute medical problems identified. He is medically clear for correction. Departure - Departure Disposition: Home, Routine, Self-Care Clinical Impression: Knee abrasion, Inguinal hernia Condition: Good Instructions: Abrasion (ED), Inguinal Hernia (ED) Additional Instructions: Follow up with General surgery for further evaluation of your hernia. Return to the emergency department for increasing knee pain, redness, swelling, or any other concerns. MEDICALLY CLEAR FOR NURSING HOME Referrals: Michael Presley MD [Medical Doctor] - As per Instructions
[2018-01-30] MEDS ORDERED: ACETAMINOPHEN 500 MG TAB PO ONE (22:42)
== END 2018-01-30 22:51 | disposition home or self-care (01) ==
LOC: EDUNIT#
DX: S80.211A Abrasion, right knee, initial encounter (principal); K40.90 Unilateral inguinal hernia, without obstruction or gangrene, not specified as recurrent; M54.2 Cervicalgia; G20 Parkinson's disease; I95.1 Orthostatic hypotension; W19.XXXA Unspecified fall, initial encounter; Y99.9 Unspecified external cause status; Z87.891 Personal history of nicotine dependence

== ENCOUNTER 2018-02-03 14:11 | Emergency (ER) | payer OTHER ==
[2018-02-03 14:22] VITALS: BP 134/87
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
--- NOTE | 2018-02-04 18:12 | ASMTCMCOM ---
CM Note CM Note Notes: Dash has been banned from the [facility] until further notice. He will need to schedule an appointment with the child welfare caseworker at the Detention before he will be even considered for admittance. Date Signed: 02/04/2018 06:11 PM Electronically Signed By:Yodit Stauffer RN
== END 2018-02-03 15:11 | disposition home or self-care (01) ==
LOC: EDUNIT#
DX: S61.219A Laceration without foreign body of unspecified finger without damage to nail, initial encounter (principal); Z59.0 Homelessness

== ENCOUNTER 2018-02-06 18:09 | Emergency (ER) | payer OTHER ==
[2018-02-06] MEDS ORDERED: NS 500 ML IV ONE (18:23)
[2018-02-06 18:59] LABS: PLATELET COUNT 180 10^3/uL (150-400)
--- NOTE | 2018-02-06 19:51 | EDPHY ---
H & P Time Seen by Provider: 02/06/18 18:17 HPI/ROS: HPI Acting bizarrely at the [facility]. 72-year-old male, very familiar to our emergency department, presents by ambulance from the [facility] for bizarre behavior. The patient does not have any specific complaints. According to the staff at the [facility] he was "acting weird". However, I witnessed this patient in our emergency department and he will often stare into space or shut his eyes and talk and mumble to himself. This is what he is doing at this time. There is no history of trauma. ROS: He will not directly answer my questions therefore review of systems not obtainable. This is also not unusual for his behavior. Past medical history: Parkinson's, orthostatic hypotension, syncope, alcohol withdrawal, mental health issues. Social history: Lives on the streets. Wheelchair-bound. [facility]. He is also been kicked out of the [facility]. History of alcohol abuse. Physical Exam: General Appearance: Alert, is not in distress but he is mumbling to himself. This patient appears generally well-hydrated and well-nourished. Eyes: He is squeezing his eyes shut. He will not open them for me spontaneously. Pupils are equal and round no pallor or injection. No lid edema , erythema or injection. Head: Normocephalic atraumatic. ENT, Mouth: Mucous membranes are moist. The pharyngeal tissues are unremarkable. No edema or swelling. No asymmetry suggestive of abscess. No erythema or exudates. No tongue lacerations or abrasions. Respiratory: There are no retractions, lungs are clear to auscultation anterior with good air movement bilaterally. Cardiovascular: Regular rate and rhythm. No murmur appreciated. Gastrointestinal: Abdomen is soft and nontender, no masses, bowel sounds normal. No focal tenderness at McBurney's point. No Dallas sign. Neurological: Motor sensory function is is at baseline. Cranial nerves are normal. Skin: Warm and dry, no rashes. No lacerations or abrasions. Musculoskeletal: Neck is supple and nontender. No midline cervical, thoracic tenderness on palpation. Extremities are symmetrical. All joints range without apparent pain or impingement. Psychiatric: As noted above Database: EKG: EKG time is 7:19 p.m.; EKG shows a narrow complex normal sinus rhythm with a ventricular rate of 84. QS waves noted in the anterior precordial leads. The [place] , QRS, QT intervals are within normal limits. There are no ST-T wave changes indicative of ischemic or injury pattern. No evidence of right heart strain. Interpreted by me. Imaging: CT head without contrast: Age-related changes only. Otherwise unremarkable. Results were discussed with staff radiologist Dr. Aman Quiles. Procedures: Emergency department course: Triage vital signs reviewed and are normal. He is afebrile. Patient's emergency department altered mental status workup has been unremarkable and reassuring. I do not feel there is an indication for further workup and admission at this time. He will be discharged from the emergency department. Follow-up and return to emergency department precautions have been discussed with him. He was discharged in good condition. Differential Diagnosis: The differential diagnosis on this patient includes but is not limited to malingering. Toxic/metabolic abnormality, intracranial mass, intracranial hemorrhage, hyponatremia, CVA unlikely. This represents a partial list of diagnoses considered. These considerations are based on history, physical exam , past history, reassessment and diagnostic testing. Smoking Status: Former smoker Constitutional: Initial Vital Signs Temperature (C) 36.6 C 02/06/18 18:13 Heart Rate 86 02/06/18 18:13 Respiratory Rate 18 02/06/18 18:13 Blood Pressure 112/76 02/06/18 18:13 O2 Sat (%) 94 02/06/18 18:13 O2 Delivery Mode Room Air Allergies/Adverse Reactions: quetiapine [From Seroquel] Allergy (Verified 01/30/18 22:21) Home Medications: Medication Instructions Recorded Carbidopa/Levodopa 25/100Mg 1.5 tab PO QID@,,,11/17/16 [Sinemet 25/100 MG (*)] Dicyclomine [Bentyl 10 MG (*)] 10 mg PO TID 11/17/16 Entacapone [Comtan] 200 mg PO TID@,,11/17/16 Selegiline HCl [Eldepryl 5mg (*)] 5 mg PO DAILY@0700 11/17/16 Venlafaxine Xr [Effexor Xr 75MG 75 mg PO DAILY 11/17/16 (*)] Venlafaxine Xr [Effexor Xr] 150 mg PO HS 11/17/16 Carbidopa/Levo Cr 50/200Mg 1 tab PO DAILY@2300 11/18/16 [SINEMET CR 50/200 MG (*)] Cephalexin [Keflex (*)] 500 mg PO Q6H #28 cap 09/21/17 Medical Decision Making - Diagnostics Imaging Results: Imaging Impressions Head CT 02/06/18 18:21 Impression: 1. Atrophy and probable small vessel disease with no acute abnormality identified. 2. See above report for additional findings. Results called and discussed with Ray García MD on 02/06/2018 at 19 :29. - Data Points Laboratory Results: Laboratory Results 02/06/18 18:48 02/06/18 18:48 02/06/18 02/06/18 18:48 18:48 WBC 6.67 10^3/uL 10^3/uL (3.80-9.50) RBC 4.46 10^6/uL 10^6/uL (4.40-6.38) Hgb 13.9 g/dL g/dL (13.7-17.5) Hct 41.2 % % (40.0-51.0) MCV 92.4 fL fL (81.5-99.8) MCH 31.2 pg pg (27.9-34.1) MCHC 33.7 g/dL g/dL (32.4-36.7) RDW 13.3 % % (11.5-15.2) Plt Count 180 10^3/uL 10^3/uL (150-400) MPV 9.6 fL fL (8.7-11.7) Neut % (Auto) 86.3 % H % (39.3-74.2) Lymph % (Auto) 6.7 % L % (15.0-45.0) [place] % (Auto) 6.3 % % (4.5-13.0) Eos % (Auto) 0.3 % L % (0.6-7.6) Baso % (Auto) 0.1 % L % (0.3-1.7) Nucleat RBC Rel Count 0.0 % % (0.0-0.2) Absolute Neuts (auto) 5.76 10^3/uL 10^3/uL (1.70-6.50) Absolute Lymphs (auto) 0.45 10^3/uL L 10^3/uL (1.00-3.00) Absolute Monos (auto) 0.42 10^3/uL 10^3/uL (0.30-0.80) Absolute Eos (auto) 0.02 10^3/uL L 10^3/uL (0.03-0.40) Absolute Basos (auto) 0.01 10^3/uL L 10^3/uL (0.02-0.10) Absolute Nucleated RBC 0.00 10^3/uL 10^3/uL (0-0.01) Immature Gran % 0.3 % % (0.0-1.1) Immature Gran # 0.02 10^3/uL 10^3/uL (0.00-0.10) RBC/WBC/PLT Morphology TNP Platelet Estimate TNP Sodium 136 mEq/L mEq/L (135-145) Potassium 4.3 mEq/L mEq/L (3.3-5.0) Chloride 105 mEq/L mEq/L (97-110) Carbon Dioxide 26 mEq/l mEq/l (22-31) Anion Gap 5 mEq/L L mEq/L (6-14) BUN 22 mg/dL mg/dL (7-23) Creatinine 0.9 mg/dL mg/dL (0.7-1.3) Estimated GFR > 60 Glucose 101 mg/dL H mg/dL (70-100) Calcium 9.2 mg/dL mg/dL (8.5-10.4) Ethyl Alcohol < 10 mg/dL mg/dL (0-10) Medications Given: Discontinued Medications Sodium Chloride (Ns) 500 mls @ 1,000 mls/hr IV EDNOW ONE PRN Reason: Protocol Stop: 02/06/18 18:52 Last Admin: 02/06/18 19:24 Dose: 500 mls Departure - Departure Disposition: Home, Routine, Self-Care Clinical Impression: Bizarre behavior Condition: Good Instructions: Altered Mental Status (ED) Additional Instructions: Read and follow provided instructions. Follow-up with your primary care physician in 1-2 days for re-evaluation. Take your medication as prescribed. Return to the emergency department for worsening symptoms or other serious concerns. Referrals: [facility],. [Clinic] - As per Instructions
--- NOTE | 2018-02-06 19:53 | CPEKG ---
Test Reason : OPEN Blood Pressure : / mmHG Vent. Rate : 084 BPM Atrial Rate : 084 BPM P-R Int : 156 ms QRS Dur : 086 ms QT Int : 372 ms P-R-T Axes : 031 -17 045 degrees QTc Int : 440 ms Sinus rhythm Borderline left axis deviation Probable anteroseptal infarct, old Confirmed by Ray García ([id number]) on 02/06/2018 7:53:29 PM Referred By: Confirmed By:Ray García
[2018-02-06 20:04] VITALS: BP 115/72
== END 2018-02-06 20:04 | disposition home or self-care (01) ==
DX: R46.2 Strange and inexplicable behavior (principal); Z59.0 Homelessness
CPT/HCPCS: G0480

== ENCOUNTER 2018-02-07 05:58 | Emergency (ER) | payer OTHER ==
[2018-02-07 06:09] VITALS: BP 117/75
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
== END 2018-02-07 06:24 | disposition home or self-care (01) ==
LOC: EDUNIT#
DX: R68.89 Other general symptoms and signs (principal); Z59.0 Homelessness

== ENCOUNTER 2018-02-07 14:18 | Emergency (ER) | payer OTHER ==
[2018-02-07 14:24] VITALS: BP 131/71
--- NOTE | 2018-02-07 14:28 | EDPHY ---
H & P Time Seen by Provider: 02/07/18 14:21 HPI/ROS: HPI Med clearance for custodial. 72-year-old male who is very familiar to our emergency department. I just saw this patient yesterday. He had a big workup in the emergency department. This included a CT scan of his head. His workup was unremarkable. He was here at that time for bizarre behavior and sent from the [facility]. He was discharged. He has been camping out by the bus. Apparently since his discharge. Police picked him up and arrested him. He is here for medical clearance for custodial with police. He has no complaints. There is no history of trauma. No significantly acute events since I saw him yesterday. ROS: Constitutional: No fever, no chills. No weakness. Eyes: No discharge. No changes in vision. ENT: No sore throat. No nasal congestion or rhinorrhea. Respiratory: No cough. No shortness of breath. Cardiac: No chest pain, no palpitations. Gastrointestinal: No abdominal pain, no vomiting, no diarrhea. Genitourinary: No hematuria. No dysuria or increased frequency with urination. Musculoskeletal: No back pain. No neck pain. No myalgias or arthralgias. Skin: No rashes. Neurological: No headache. No focal weakness or altered sensation. Past medical history: Parkinson's, orthostatic hypotension, syncope, alcohol withdrawal, mental health issues. Social history: Currently homeless. [facility]. History of alcohol abuse. Physical Exam: General Appearance: Alert, no distress. This patient is responding to questions appropriately and in full sentences. This patient appears well- hydrated and well-nourished. Eyes: Pupils equal and round no pallor or injection. No lid edema, erythema or injection. Respiratory: There are no retractions, lungs are clear to auscultation with good air movement bilaterally. Cardiovascular: Regular rate and rhythm. No murmur. Gastrointestinal: Abdomen is soft and nontender, no masses, bowel sounds normal. No focal tenderness at McBurney's point. No Dallas sign. Neurological: Motor sensory function is baseline normal. Cranial nerves are normal. Skin: Warm and dry, no rashes. Musculoskeletal: Neck is supple and nontender. Extremities are symmetrical. All joints range without pain or impingement. Psychiatric: No agitation. No depression. Database: EKG: Imaging: Procedures: Emergency department course: Triage vital signs reviewed and are normal. I evaluated this patient in the hallway. He was medically cleared for custodial. He was discharged with police in good condition. Differential Diagnosis: The differential diagnosis on this patient includes but is not limited to medical clearance for custodial, no acute issues. This represents a partial list of diagnoses considered. These considerations are based on history, physical exam , past history, reassessment and diagnostic testing. Smoking Status: Former smoker Constitutional: Initial Vital Signs Temperature (C) 36.4 C 02/07/18 14:18 Heart Rate 78 02/07/18 14:18 Respiratory Rate 18 02/07/18 14:18 Blood Pressure 131/71 H 02/07/18 14:18 O2 Sat (%) 95 02/07/18 14:18 O2 Delivery Mode Room Air Allergies/Adverse Reactions: quetiapine [From Seroquel] Allergy (Verified 02/07/18 06:07) Home Medications: Medication Instructions Recorded Carbidopa/Levodopa 25/100Mg 1.5 tab PO QID@07,,,11/17/16 [Sinemet 25/100 MG (*)] Dicyclomine [Bentyl 10 MG (*)] 10 mg PO TID 11/17/16 Entacapone [Comtan] 200 mg PO TID@07,,11/17/16 Selegiline HCl [Eldepryl 5mg (*)] 5 mg PO DAILY@0700 11/17/16 Venlafaxine Xr [Effexor Xr 75MG 75 mg PO DAILY 11/17/16 (*)] Venlafaxine Xr [Effexor Xr] 150 mg PO HS 11/17/16 Carbidopa/Levo Cr 50/200Mg 1 tab PO DAILY@2300 11/18/16 [SINEMET CR 50/200 MG (*)] Cephalexin [Keflex (*)] 500 mg PO Q6H #28 cap 09/21/17 Departure - Departure Disposition: Law Enforcement/Court/Care Home Clinical Impression: Medical clearance for incarceration Condition: Good Instructions: Abuse of Alcohol (ED) Additional Instructions: Read and follow provided instructions. Follow-up with your primary care physician in 1-2 days for re-evaluation. Return to the emergency department for worsening symptoms or other serious concerns. Referrals: [facility],. [Clinic] - As per Instructions
== END 2018-02-07 14:33 ==
LOC: EDUNIT#
DX: R46.2 Strange and inexplicable behavior (principal); Z59.0 Homelessness

== ENCOUNTER 2018-03-03 21:02 | Inpatient (IN) | payer OTHER, MEDICAID ==
[2018-03-03] MEDS ORDERED: ETOMIDATE 40 MG/20 ML INJ IVP ONE (21:10)
[2018-03-03] MEDS ORDERED: NS 1,000 ML IV ONE (21:10)
[2018-03-03] MEDS ORDERED: SUCCINYLCHOLINE CHLORIDE 200 MG/10 ML SYR IVP ONE (21:10)
[2018-03-03 21:16] LABS: PLATELET COUNT 290 10^3/uL (150-400)
[2018-03-03] MEDS ORDERED: PROPOFOL/EMULSION 1,000 MG/100 ML BOTTLE IV ONE (21:16)
[2018-03-03] MEDS ORDERED: MIDAZOLAM 2 MG/2 ML VIAL IVP ONE (21:18)
[2018-03-03] MEDS: PROPOFOL/EMULSION 100 ML IV SCH (21:25)
--- NOTE | 2018-03-03 21:25 | EDPHY ---
H & P Time Seen by Provider: 03/03/18 21:05 HPI/ROS: Chief complaint. Choking HPI. Patient is 70-year-old male at the nursing home. He apparently choked on piece of meat. He loss consciousness. Bystanders could not find a pulse and CPR was started. EMS arrived and in their airway management were able to extract a large piece of meat from the back of the patient's throat and airway. Patient arrives unresponsive without spontaneous respirations. Tachycardic and hypertensive. Patient is unresponsive and can't give any history. ROS 10 systems were reviewed and negative with the exception of the elements mentioned in the history of present illness Past Medical/Surgical History: Parkinson's disease Social History: Single and in nursing home. Unknown smoking or alcohol Smoking Status: Former smoker Physical Exam: General Appearance: Unresponsive male without spontaneous respirations. Kb airway in place and having bagged respirations Eyes: Pupils mid size and poorly reactive. ENT, Mouth: Mucous membranes are moist. Respiratory: No spontaneous respirations. Inspiratory expiratory rhonchi bilaterally with assisted respirations Cardiovascular: Regular rate and rhythm with tachycardia Gastrointestinal: No evidence of trauma to the abdomen. It is soft Neurological: Unresponsive Skin: Warm and dry, no rashes. Musculoskeletal: Neck appears without trauma Extremities does not move extremities Psychiatric: Unresponsive Constitutional: Initial Vital Signs Temperature (C) 36.3 C 03/03/18 21:05 Heart Rate 116 H 03/03/18 21:05 Respiratory Rate 19 03/03/18 21:05 Blood Pressure 154/110 H 03/03/18 21:05 O2 Sat (%) 93 03/03/18 21:05 O2 Delivery Mode Ventilator Allergies/Adverse Reactions: quetiapine [From Seroquel] Allergy (Verified 03/03/18 21:05) Home Medications: Medication Instructions Recorded Carbidopa/Levodopa 25/100Mg 1.5 tab PO QID@07,11,15,11/17/16 [Sinemet 25/100 MG (*)] Dicyclomine [Bentyl 10 MG (*)] 10 mg PO TID 11/17/16 Entacapone [Comtan] 200 mg PO TID@07,11,19 11/17/16 Selegiline HCl [Eldepryl 5mg (*)] 5 mg PO DAILY@0700 11/17/16 Venlafaxine Xr [Effexor Xr 75MG 75 mg PO DAILY 11/17/16 (*)] Venlafaxine Xr [Effexor Xr] 150 mg PO HS 11/17/16 Carbidopa/Levo Cr 50/200Mg 1 tab PO DAILY@2300 11/18/16 [SINEMET CR 50/200 MG (*)] Cephalexin [Keflex (*)] 500 mg PO Q6H #28 cap 09/21/17 Medical Decision Making - Diagnostics EKG Interpretation: EKG interpreted normal sinus rhythm interval. Left axis deviation. LVH by voltage criteria significant ST elevation or depression. Rate is 5 Imaging Results: Imaging Impressions Chest X-Ray 03/03/18 21:10 Impression: 1. Somewhat low ET tube, remaining above the ana m. 2. Gastric distention. Might this patient benefit from an NG tube? 3. Suspect right upper lobe aspiration pneumonia. Results called to Dr. Gomez at 9:45 pm. One-view chest x-ray shows the endotracheal tube to be above the ana m but just above. Some gastric distention. Evidence of right side aspiration pneumonia Procedures: ED intubation--after good suctioning of quite a bit of food particulate matter and vomitus. The patient is given 20 mg of etomidate and 125 mg of succinylcholine. He is intubated 1st pass using a glide scope and a 7.5 endotracheal tube. Some food debris in the posterior pharynx that is suctioned. Colorimeter change is noted, condensation in the endotracheal to, initial increased breath sounds on the right. Endotracheal tube is pulled back somewhat and now has good breath sounds bilaterally. Aquino catheter is placed NG tube is placed Patient is given 8 mg of vecuronium. 8 mg of Versed for sedation. Begun on a propofol drip. ED Course/Re-evaluation: Patient is given Unasyn 3 g IV for aspiration pneumonia I consulted and discussed the case with hospitalist, who sees the patient in the emergency department. Differential Diagnosis: Apparent choking on food to the point of unconsciousness and receive CPR. No spontaneous respirations on arrival and airway was not well controlled. Now intubated. Evidence for aspiration pneumonia treated with IV antibiotics. No evidence for acute myocardial infarction Critical Care Time: Critical care time exclusive procedures 40 min - Data Points Laboratory Results: Laboratory Results 03/03/18 21:08 03/03/18 21:31 03/03/18 03/03/18 03/03/18 21:31 21:22 21:12 WBC RBC Hgb POC Hgb 15.0 gm/dL gm/dL (13.7-17.5) Hct POC Hct 44 % % (40-51) MCV MCH MCHC RDW Plt Count MPV Neut % (Auto) Lymph % (Auto) [place] % (Auto) Eos % (Auto) Baso % (Auto) Nucleat RBC Rel Count Absolute Neuts (auto) Absolute Lymphs (auto) Absolute Monos (auto) Absolute Eos (auto) Absolute Basos (auto) Absolute Nucleated RBC Immature Gran % Seg Neutrophils % Band Neutrophils % Lymphocytes % Monocytes % Eosinophils % Basophils % Metamyelocytes % Myelocytes % Promyelocytes % Blast Cells % Immature Gran # Absolute Seg Neuts Absolute Band Neuts Absolute Lymphocytes Absolute Monocytes Absolute Eosinophils Absolute Basophils Absolute Metamyelocyte Absolute Myelocytes Absolute Promyelocytes Absolute Plasma Cells Nucleated RBCs RBC/WBC/PLT Morphology Absolute Blast Cells Plasma Cells % Platelet Estimate Smear Review By POC Sodium 146 mEq/L H mEq/L (135-145) Sodium 140 mEq/L mEq/L (135-145) POC Potassium 3.6 mEq/L mEq/L (3.3-5.0) Potassium 5.9 mEq/L H mEq/L (3.5-5.2) POC Chloride 107 mEq/L mEq/L (97-110) Chloride 107 mEq/L mEq/L (97-110) Carbon Dioxide 23 mEq/l mEq/l (22-31) Anion Gap 10 mEq/L mEq/L (6-14) POC BUN 28 mg/dL H mg/dL (7-23) BUN 31 mg/dL H mg/dL (7-23) Creatinine 1.2 mg/dL mg/dL (0.7-1.3) POC Creatinine 1.1 mg/dL mg/dL (0.7-1.3) Estimated GFR 60 Glucose 200 mg/dL H mg/dL (70-100) POC Glucose 177 mg/dL H mg/dL (70-100) Calcium 8.6 mg/dL mg/dL (8.5-10.4) POC Troponin I 0.02 ng/mL ng/mL (0.00-0.08) 03/03/18 21:08 WBC 16.86 10^3/uL H 10^3/uL (3.80-9.50) RBC 4.46 10^6/uL 10^6/uL (4.40-6.38) Hgb 13.7 g/dL g/dL (13.7-17.5) POC Hgb Hct 43.5 % % (40.0-51.0) POC Hct MCV 97.5 fL fL (81.5-99.8) MCH 30.7 pg pg (27.9-34.1) MCHC 31.5 g/dL L g/dL (32.4-36.7) RDW 13.7 % % (11.5-15.2) Plt Count 290 10^3/uL 10^3/uL (150-400) MPV 9.0 fL fL (8.7-11.7) Neut % (Auto) Not Reported Lymph % (Auto) Not Reported [place] % (Auto) Not Reported Eos % (Auto) Not Reported Baso % (Auto) Not Reported Nucleat RBC Rel Count Not Reported Absolute Neuts (auto) Not Reported Absolute Lymphs (auto) Not Reported Absolute Monos (auto) Not Reported Absolute Eos (auto) Not Reported Absolute Basos (auto) Not Reported Absolute Nucleated RBC Not Reported Immature Gran % Not Reported Seg Neutrophils % 51.5 % % Band Neutrophils % 3.1 % % Lymphocytes % 39.2 % % Monocytes % 0.0 % % Eosinophils % 3.1 % % Basophils % 0.0 % % Metamyelocytes % 0.0 % % Myelocytes % 3.1 % % Promyelocytes % 0.0 % % Blast Cells % 0.0 % % Immature Gran # Not Reported Absolute Seg Neuts 8.68 10^3/uL H 10^3/uL (1.70-6.50) Absolute Band Neuts 0.52 10^3/uL 10^3/uL (0.00-0.70) Absolute Lymphocytes 6.61 10^3/uL H 10^3/uL (1.00-3.00) Absolute Monocytes 0.00 10^3/uL L 10^3/uL (0.30-0.80) Absolute Eosinophils 0.52 10^3/uL H 10^3/uL (0.03-0.40) Absolute Basophils 0.00 10^3/uL L 10^3/uL (0.02-0.10) Absolute Metamyelocyte 0.00 10^3/mL 10^3/mL (0.00-0.00) Absolute Myelocytes 0.52 10^3/mL H 10^3/mL (0.00-0.00) Absolute Promyelocytes 0.00 10^3/uL 10^3/uL (0.00-0.00) Absolute Plasma Cells 0.00 10^3/uL 10^3/uL (0.00-0.00) Nucleated RBCs 0 /100 WBC /100 WBC (0-0) RBC/WBC/PLT Morphology NORMAL (NORMAL) Absolute Blast Cells 0.00 10^3/uL 10^3/uL (0.00-0.00) Plasma Cells % 0.0 % % Platelet Estimate ADEQUATE (ADEQ) Smear Review By Pending POC Sodium Sodium POC Potassium Potassium POC Chloride Chloride Carbon Dioxide Anion Gap POC BUN BUN Creatinine POC Creatinine Estimated GFR Glucose POC Glucose Calcium POC Troponin I Medications Given: Propofol (Diprivan 10 Mg/Ml (Premix)) 100 mls @ 0 mls/hr IV CONT MARYJO; Titrate PRN Reason: Protocol Stop: 08/30/18 21:29 Last Admin: 03/03/18 21:25 Dose: 100 mls Ampicillin Sodium/Sulbactam (Sodium 3 gm/ Sodium Chloride) 100 mls @ 200 mls/ hr IV EDNOW ONE PRN Reason: Protocol Stop: 03/03/18 22:05 Last Admin: 03/03/18 21:52 Dose: 100 mls Discontinued Medications Etomidate (Etomidate) 20 mg IVP EDNOW ONE Stop: 03/03/18 21:11 Last Admin: 03/03/18 21:13 Dose: 20 mg Sodium Chloride (Ns) 1,000 mls @ 0 mls/hr IV EDNOW ONE; Wide Open PRN Reason: Protocol Stop: 03/03/18 21:11 Last Admin: 03/03/18 21:19 Dose: 1,000 mls Midazolam HCl (Versed) 4 mg IVP EDNOW ONE Stop: 03/03/18 21:19 Last Admin: 03/03/18 21:18 Dose: 4 mg Succinylcholine Chloride (Quelicin) 125 mg IVP EDNOW ONE Stop: 03/03/18 21:11 Last Admin: 03/03/18 21:15 Dose: 125 mg Point of Care Test Results: Chemistry 03/03/18 03/03/18 21:22 21:12 POC Sodium 146 mEq/L H mEq/L (135-145) POC Potassium 3.6 mEq/L mEq/L (3.3-5.0) POC Chloride 107 mEq/L mEq/L (97-110) POC BUN 28 mg/dL H mg/dL (7-23) POC Creatinine 1.1 mg/dL mg/dL (0.7-1.3) POC Glucose 177 mg/dL H mg/dL (70-100) POC Troponin I 0.02 ng/mL ng/mL (0.00-0.08) ISTAT H&H 03/03/18 21:12 POC Hgb 15.0 gm/dL gm/dL (13.7-17.5) POC Hct 44 % % (40-51) Departure - Departure Disposition: [facility] Inpatient Acute Clinical Impression: Airway obstruction due to foreign body Condition: Fair
[2018-03-03] MEDS ORDERED: AMPICILLIN/SULBACTAM 3 GM in NS 100 ML IV ONE (21:36)
[2018-03-03] MEDS ORDERED: VECURONIUM BROMIDE 10 MG VIAL IV ONE (21:53)
[2018-03-03] MEDS ORDERED: ACETAMINOPHEN 650 MG SUPP PR PRN (21:59)
[2018-03-03] MEDS ORDERED: LORazepam 2 MG/ML INJ IVP PRN (21:59)
[2018-03-03] MEDS ORDERED: MIDAZOLAM 2 MG/2 ML VIAL IVP PRN (21:59)
[2018-03-03] MEDS ORDERED: fentaNYL/NACL 100 ML IV SCH (22:00)
--- NOTE | 2018-03-03 22:06 | PDGENHP ---
History and Physical - Chief Complaint choking at shelter - History of Present Illness 72 yo M with hx of FTT, homelessness and Parkinson's disease brought in from shelter with concerns that he was unresponsive and was found by EMS to have been choking on steak. The steak was able to be dislodged by EMT prior to arrival, but even upon arrival to ER patient was unresponsive and not protecting his airway. Patient was urgently intubated in ER. Given patients being intubated and sedated this history is obtained by chart review and in discussion with ER doctor. Per report, prior to choking this evening he had been in his usual state of health and had no new complaints. History Information - Allergies/Home Medication List Allergies/Adverse Reactions: quetiapine [From [employer]] Allergy (Verified 03/03/18 21:05) Home Medications: Carbidopa/Levodopa 25/100Mg [Sinemet 25/100 MG (*)] 1.5 tab PO QID@07,11,15,11/17/16 [Last Taken Unknown] Dicyclomine [Bentyl 10 MG (*)] 10 mg PO TID 11/17/16 [Last Taken Unknown] Entacapone [Comtan] 200 mg PO TID@07,11,19 11/17/16 [Last Taken Unknown] Selegiline HCl [Eldepryl 5mg (*)] 5 mg PO DAILY@0700 11/17/16 [Last Taken Unknown] Venlafaxine Xr [Effexor Xr 75MG (*)] 75 mg PO DAILY 11/17/16 [Last Taken Unknown ] Venlafaxine Xr [Effexor Xr] 150 mg PO HS 11/17/16 [Last Taken Unknown] Carbidopa/Levo Cr 50/200Mg [SINEMET CR 50/200 MG (*)] 1 tab PO DAILY@2300 [Last Taken Unknown] I have personally reviewed and updated: family history, medical history - Past Medical History Additional medical history: Parkinson's Disease. Orthostatic hypotension. chronic pain--previously on continuous opiates but given instability of living situation is off of those - Surgical History Reports: hernia repair Additional surgical history: cervical fusion - Family History Positive for: non-pertinent - Social History Smoking Status: Former smoker Additional social history: homeless, has been in various SNF and more recently has been arrested several times and currently in custody of [employer]. 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 No family involved. Further social history unobtainable due to patients mental status Review of Systems Review of Systems: unobtainable due to patients mental status Physical Exam Physical Exam: Temp Pulse Resp BP Pulse Ox 36.1 C 88 20 98/76 L 96 03/03/18 21:54 03/03/18 21:54 03/03/18 21:54 03/03/18 21:54 03/03/18 21:54 Constitutional: chronically ill appearing, unkempt Eyes: PERRL, anicteric sclera Ears, Nose, Mouth, Throat: poor dentition, other (ETT in place) Cardiovascular: regular rate and rhythym, no murmur, rub, or gallop, No edema Respiratory: reduced air movement, bronchial breath sounds Gastrointestinal: normoactive bowel sounds, No guarding, No rebound Genitourinary: no bladder tenderness Skin: warm, normal color, abrasion Musculoskeletal: No asymmetric calves Neurologic: other (intubated and sedated), No AAOx3 Lab Data & Imaging Review 03/03/18 21:08 03/03/18 21:31 WBC 16.86 10^3/uL (3.80-9.50) H 03/03/18 21:08 RBC 4.46 10^6/uL (4.40-6.38) 03/03/18 21:08 Hgb 13.7 g/dL (13.7-17.5) 03/03/18 21:08 POC Hgb 15.0 gm/dL (13.7-17.5) 03/03/18 21:12 Hct 43.5 % (40.0-51.0) 03/03/18 21:08 POC Hct 44 % (40-51) 03/03/18 21:12 MCV 97.5 fL (81.5-99.8) 03/03/18 21:08 MCH 30.7 pg (27.9-34.1) 03/03/18 21:08 MCHC 31.5 g/dL (32.4-36.7) L 03/03/18 21:08 RDW 13.7 % (11.5-15.2) 03/03/18 21:08 Plt Count 290 10^3/uL (150-400) 03/03/18 21:08 MPV 9.0 fL (8.7-11.7) 03/03/18 21:08 Neut % (Auto) Not Reported 03/03/18 21:08 Lymph % (Auto) Not Reported 03/03/18 21:08 [place] % (Auto) Not Reported 03/03/18 21:08 Eos % (Auto) Not Reported 03/03/18 21:08 Baso % (Auto) Not Reported 03/03/18 21:08 Nucleat RBC Rel Count Not Reported 03/03/18 21:08 Absolute Neuts (auto) Not Reported 03/03/18 21:08 Absolute Lymphs (auto) Not Reported 03/03/18 21:08 Absolute Monos (auto) Not Reported 03/03/18 21:08 Absolute Eos (auto) Not Reported 03/03/18 21:08 Absolute Basos (auto) Not Reported 03/03/18 21:08 Absolute Nucleated RBC Not Reported 03/03/18 21:08 Immature Gran % Not Reported 03/03/18 21:08 Seg Neutrophils % 51.5 % 03/03/18 21:08 Band Neutrophils % 3.1 % 03/03/18 21:08 Lymphocytes % 39.2 % 03/03/18 21:08 Monocytes % 0.0 % 03/03/18 21:08 Eosinophils % 3.1 % 03/03/18 21:08 Basophils % 0.0 % 03/03/18 21:08 Metamyelocytes % 0.0 % 03/03/18 21:08 Myelocytes % 3.1 % 03/03/18 21:08 Promyelocytes % 0.0 % 03/03/18 21:08 Blast Cells % 0.0 % 03/03/18 21:08 Immature Gran # Not Reported 03/03/18 21:08 Absolute Seg Neuts 8.68 10^3/uL (1.70-6.50) H 03/03/18 21:08 Absolute Band Neuts 0.52 10^3/uL (0.00-0.70) 03/03/18 21:08 Absolute Lymphocytes 6.61 10^3/uL (1.00-3.00) H 03/03/18 21:08 Absolute Monocytes 0.00 10^3/uL (0.30-0.80) L 03/03/18 21:08 Absolute Eosinophils 0.52 10^3/uL (0.03-0.40) H 03/03/18 21:08 Absolute Basophils 0.00 10^3/uL (0.02-0.10) L 03/03/18 21:08 Absolute Metamyelocyte 0.00 10^3/mL (0.00-0.00) 03/03/18 21:08 Absolute Myelocytes 0.52 10^3/mL (0.00-0.00) H 03/03/18 21:08 Absolute Promyelocytes 0.00 10^3/uL (0.00-0.00) 03/03/18 21:08 Absolute Plasma Cells 0.00 10^3/uL (0.00-0.00) 03/03/18 21:08 Nucleated RBCs 0 /100 WBC (0-0) 03/03/18 21:08 RBC/WBC/PLT Morphology NORMAL (NORMAL) 03/03/18 21:08 Absolute Blast Cells 0.00 10^3/uL (0.00-0.00) 03/03/18 21:08 Plasma Cells % 0.0 % 03/03/18 21:08 Platelet Estimate ADEQUATE (ADEQ) 03/03/18 21:08 Puncture Site NONE GIVEN 03/03/18 21:40 Patient Temperature 37.6 DEGREES 03/03/18 21:40 pCO2 50 mmHg (34-38) H 03/03/18 21:40 pO2 127 mmHg (65-75) H 03/03/18 21:40 Total CO2 24 mEq/L (23-27) 03/03/18 21:40 ABG pH 7.29 (7.35-7.45) L 03/03/18 21:40 ABG PO2/FiO2 Ratio 127 RATIO 03/03/18 21:40 ABG HCO3 23 mEq/L (22-26) 03/03/18 21:40 ABG O2 Saturation 98 % (92-95) H 03/03/18 21:40 ABG Base Excess -3.4 mEq/L (-2.5-2.5) L 03/03/18 21:40 O2 Concentration % 100 % (0-100) 03/03/18 21:40 Respiration Rate 20 03/03/18 21:40 Set Respiration Rate 16 03/03/18 21:40 Assist Control YES 03/03/18 21:40 Tidal Volume 450 03/03/18 21:40 End Tidal CO2 28 03/03/18 21:40 PEEP 5 03/03/18 21:40 POC Sodium 146 mEq/L (135-145) H 03/03/18 21:12 Sodium 140 mEq/L (135-145) 03/03/18 21:31 POC Potassium 3.6 mEq/L (3.3-5.0) 03/03/18 21:12 Potassium 5.9 mEq/L (3.5-5.2) H 03/03/18 21:31 POC Chloride 107 mEq/L (97-110) 03/03/18 21:12 Chloride 107 mEq/L (97-110) 03/03/18 21:31 Carbon Dioxide 23 mEq/l (22-31) 03/03/18 21:31 Anion Gap 10 mEq/L (6-14) 03/03/18 21:31 POC BUN 28 mg/dL (7-23) H 03/03/18 21:12 BUN 31 mg/dL (7-23) H 03/03/18 21:31 Creatinine 1.2 mg/dL (0.7-1.3) 03/03/18 21:31 POC Creatinine 1.1 mg/dL (0.7-1.3) 03/03/18 21:12 Estimated GFR 60 03/03/18 21:31 Glucose 200 mg/dL (70-100) H 03/03/18 21:31 POC Glucose 177 mg/dL (70-100) H 03/03/18 21:12 Calcium 8.6 mg/dL (8.5-10.4) 03/03/18 21:31 POC Troponin I 0.02 ng/mL (0.00-0.08) 03/03/18 21:22 Visualized and Interpreted Chest x-ray results: Yes Chest X-Ray results: infiltrate (RUL infilatrate, aspiration) Visualized and Interpreted EKG results: Yes EKG Interpretation: Positive for: LVH, normal sinsus rhythm Assessment & Plan Assessment: 72 yo M with PD and FTT presenting after being found unresponsive in the setting of food aspiration and respiratory arrest # acute hypoxic respiratory failure: in the setting of aspiration of food materials and airway blockage with associated findings c/w aspiration pna versus pneumonitis. Intubated in ER, will monitor in ICU # ? cardiac arrest: patient reportedly underwent some rounds of cpr prior to hospital arrival but details of this uncertain, will monitor in IcU # aspiration pna/pneumonitis: patient with risk of chronic aspiration due to his severe PD, CXR with RUL infiltrate, started on unasyn which will be continued for now, cultures pending # PD: relatively advanced, patient previously in [place] more recently homeless and then in shelter, concern for FTT in the past, will resume his home meds when reconciled # leukocytosis: without other SIRS criteria currently, in the setting of aspiration and arrest as above, will trend # IP status, patient critically ill and will need ICU level care Patient new to my care. Old records reviewed and summarized as above. Care plan reviewed with ER doctor including plans for sedation. > 45 min in critical care time spent in review of labs/imaging and coordination of care with ER doctor
--- NOTE | 2018-03-03 22:37 | CPEKG ---
Test Reason : OPEN Blood Pressure : / mmHG Vent. Rate : 095 BPM Atrial Rate : 095 BPM P-R Int : 149 ms QRS Dur : 087 ms QT Int : 348 ms P-R-T Axes : 068 -20 061 degrees QTc Int : 438 ms Sinus rhythm Consider left ventricular hypertrophy Confirmed by Jorge L Gomez ([id number]) on 03/03/2018 10:37:14 PM Referred By: Confirmed By:Jorge L Gomez
[2018-03-03] MEDS ORDERED: MIDAZOLAM 2 MG/2 ML VIAL ONE (22:38)
[2018-03-03] MEDS: NS 1,000 ML IV SCH (23:25)
[2018-03-04] MEDS: AMPICILLIN/SULBACTAM 3 GM in NS 100 ML IV SCH ×4 (03:55→18:30)
[2018-03-04 04:50] LABS: PLATELET COUNT 195 10^3/uL (150-400)
[2018-03-04] MEDS: PROPOFOL/EMULSION 100 ML IV SCH (04:56)
[2018-03-04] MEDS ORDERED: LIDOCAINE 2% JELLY 5 ML TUBE TP ONE (08:01)
[2018-03-04] MEDS ORDERED: LIDOCAINE 1% 300 MG/30 ML SDV MISC ONE (08:01)
[2018-03-04] MEDS ORDERED: LIDOCAINE 1% 300 MG/30 ML SDV ONE (08:06)
--- NOTE | 2018-03-04 08:19 | ASMTLACE ---
PARDEEP Acuity / Level of Answers: Yes Care: Did the patient have an inpatient admission? Comorbidities - select Answers: History of falls all that apply Opioid dependence / Chronic pain Other Notes: Parkinson's disease # of Emergency department Answers: 12+ visits in the last 6 months Social determinants Answers: History of substance abuse (ETOH, street drugs, prescription drugs, etc.) Homelessness (street, half-way) Score: 23 Date Signed: 03/04/2018 08:18 AM Electronically Signed By:Rosmery Cruz
[2018-03-04] MEDS: ENOXAPARIN 40 MG/0.4 ML SYR SC SCH (08:21)
[2018-03-04] MEDS ORDERED: PANTOPRAZOLE SODIUM 40 MG VIAL IVP SCH (09:00)
--- NOTE | 2018-03-04 10:16 | PDMN ---
Medical Necessity Medical necessity: Pt meets inpt criteria per MD order and MCG [id number], Pneumonia Due to Aspiration, 3 days. 72 y/o w/Parkinsons, homelessness, and FTT presented after being found unresponsive in setting of food aspiration and resp arrest, admitted w/acute hypoxic resp failure after choking on food w/associated findings consistent w/aspiration pna vs pneumonitis requiring intubation. CXR shows RUL infiltrate, cultures pending, IV ABX's started, ICU monitoring, anticipate>2MN for ongoing eval/management of critically ill pt.
[2018-03-04] MEDS ORDERED: NS 500 ML IV ONE (10:30)
[2018-03-04] MEDS: CARBIDOPA/LEVODOPA 25 MG/100 MG TAB TUBE SCH ×2 (14:36→19:49)
[2018-03-04] MEDS: ENTACAPONE 200 MG TAB TUBE SCH ×2 (14:36→19:49)
--- NOTE | 2018-03-04 17:25 | GCON ---
CRITICAL CARE CONSULTATION. DATE OF CONSULTATION: 03/04/2018 HISTORY OF PRESENT ILLNESS: This patient is a 72-year-old male with a longstanding history of failur e to thrive and chronic homelessness as well as Parkinson's, who apparently is a frequent visitor to [facility] with problems associated with behavioral disturbances. In any case, yesterday, naomi weiss was found unresponsive while choking on food. Heimlich maneuver was attempted but was unable to dis lodge anything. I believe he was also thought to be pulseless and did get CPR, but those details are not very clear. EMS was called to the scene. There was an intubation attempt that was unsuccessful . The 2nd attempt was with I believe LMA and finally using a Kb Air tube. He was brought to the e mergency department. At that time apparently, there was a large piece of food that was removed from his airway prior to the LMA, but in the emergency department they suctioned copious amounts of secret ions as well as other food particles and he was intubated using rapid sequence technique with a 7.5 e ndotracheal tube. A chest x-ray revealed a right upper lobe infiltrate. He was treated with Unasyn for that and remained stable overnight though his oxygen was not all that good. In any case, he was stable at the time of my visit this morning. REVIEW OF SYSTEMS: Otherwise negative. PAST MEDICAL HISTORY: Failure to thrive, homelessness, Parkinson's, and chronic pain. PAST SURGICAL HISTORY: Includes hernia repair, cervical fusion. SOCIAL HISTORY: He has a smoking history but none currently. FAMILY HISTORY: Noncontributory. CURRENT MEDICATIONS: Include Tylenol, Unasyn, Lovenox, fentanyl, Ativan p.r.n., Versed p.r.n., Ken nix, propofol, normal saline. PHYSICAL EXAM: VITAL SIGNS: His temperature low was 35.8, currently 37.5, and has been afebrile. Bl ood pressure was 136/62 with a heart rate of 88, respirations 23, oxygen saturation 93% on 60% FiO2. It should be noted that his IV had some infiltration this morning. Once that was changed, his propo fol started infusing better. He was briefly hypotensive to about 60 over X and responded well to a 5 00 cc fluid bolus. GENERAL: He was thin and partly cachectic looking and ill-appearing on the ventil ator. HEENT: His pupils were small, about 3 mm and sluggishly reactive, but no scleral icterus or inj ected. His mucous membranes appeared to be moist. NECK: Supple, without adenopathy. LUNGS: Breath sounds were clear to auscultation bilaterally without wheezes, rubs or rales. HEART: Regular rate and rhythm without murmurs, rubs, gallops. ABDOMEN: Soft, nontender, nondistended without hepatospl enomegaly. GENITOURINARY: He had a medium-sized easily reducible right inguinal hernia. EXTREMITIES : No clubbing, cyanosis, or edema. NEUROLOGICAL: Exam was nonfocal. OBJECTIVE DATA: Includes chest x-ray which shows a right upper lobe infiltrate and endotracheal tube that is a little close to the ana m, but has been subsequently repositioned. His white count was 1 6.8 on arrival to 14.9 this morning, hematocrit 39.8, platelets of 195. Blood gas showed a pH 7.4, p CO2 35, pO2 69, bicarb of 22, saturation 94% on 60% and 5 of PEEP. Basic metabolic panel was essenti ally normal as was his troponin. ASSESSMENT/PLAN: 1. Aspiration pneumonitis, certainly could be infectious, but his cultures are negative to date. I would continue Unasyn for now. 2. Acute respiratory failure due to #1 with hypoxemia. His oxygen requirement is small but not triv ial. We will continue to titrate his FiO2 today. Recheck a chest x-ray in the morning. I do not th ink he will likely extubate, but we may wean him later this afternoon depending on how things go. I do think that bronchoscopy is indicated and this is dictated under separate cover. There were no add itional food particles found in his lungs after a thorough inspection. 3. Hypotension. This is fairly transient. I think has to do with the propofol which was not infusi ng accurately previously. He responded well to IV fluids. We will continue to watch. I see no evid ence of acute coronary syndrome, septic shock or adrenal insufficiency at this time. A total of 45 minutes of critical care time was required to evaluate this patient separate from delvin cline. /[id number]
--- NOTE | 2018-03-04 19:25 | GPN ---
DATE OF PROCEDURE: 03/04/2018 PROCEDURE: Bronchoscopy. INDICATION: Large volume aspiration. Consent was waived as the patient was intubated and unable to sign and there was no family available. The procedure was considered to be medically necessary. Conscious sedation was achieved using existing propofol drip as well as fentanyl drip. DESCRIPTION OF PROCEDURE: The bronchoscope was easily passed through the existing 7.5 endotracheal t ube. There were minor secretions primarily in the left lower lobe but also in the right lower lobe w ithout evidence of food particles or bleeding. There were no major mucosal abnormalities, though the re was some swelling in the left lower lobe. Left upper lobe lingula and right upper lobe were also explored. The ana m was sharp. Otherwise was a normal bronchoscopy. /[id number]/MODL
--- NOTE | 2018-03-04 20:14 | HOSPPROG ---
Hospitalist Progress Note Assessment/Plan: * Aspiration event s/p Heimlich, possible PNA -IV unasyn -swallow eval when MS improves * PEA arrest s/p CPR - due to respiratory arrest * Possible anoxic encephalopathy -agitated, moving extremities * Acute respiratory failure -extubated self - doing okay * Parkinson's -continue Sinemet * Metabolic encephalopathy -post arrest, due to PNA Subjective: agitated, caused extubation Objective: Vital Signs Temp Pulse Resp BP Pulse Ox 37.7 C 100 26 H 131/68 H 92 03/04/18 19:45 03/04/18 19:45 03/04/18 19:45 03/04/18 19:45 03/04/18 19:45 Laboratory Results 03/04/18 04:30 03/04/18 04:30 03/03/18 03/04/18 03/05/18 05:59 05:59 05:59 Intake Total 1791 2038 Output Total 550 [address] Barroso ICU rounds regarding complicated course CXR - RUL PNA - Physical Exam Constitutional: no apparent distress, appears nourished, not in pain Cardiovascular: regular rate and rhythym, no murmur, rub, or gallop Respiratory: no respiratory distress, no rales or rhonchi, clear to auscultation Gastrointestinal: normoactive bowel sounds, soft, non-tender abdomen, no palpable masses Skin: no rashes or abrasions, no fluctuance, no induration Neurologic: No AAOx3 Psychiatric: agitated, poor insight, poor judgement, poor memory, No interacting appropriately, No encephalopathic ICD10 Worksheet Patient Problems: Problems Problem Status Onset Airway obstruction due to foreign body Acute Aggressive behavior Acute Hand abrasion Acute Parkinson disease Acute Parkinson's disease dementia Acute Scalp abrasion Acute
[2018-03-04] MEDS: LORazepam 2 MG/ML INJ IVP PRN (20:48)
[2018-03-04] MEDS ORDERED: NS 500 ML IV PRN (20:54)
[2018-03-04] MEDS: DEXMEDETOMIDINE HCL 400 MCG in NS 100 ML IV SCH (21:27)
--- NOTE | 2018-03-04 21:29 | ASMTCMCOM ---
CM Note CM Note Notes: 72yo male admitted from the prison after choking on meat- acute hypoxic respiratory failure. He has a Hx of Parkinson's, Hypotension, Chronic pain, Homelessness, Personality diso. According to past notes, patient has been difficult to place in SNF's and he has preferred to return to the streets. Patient presently on the vent. Past Ethics notes reflect that he would prefer to have Nathalia Brown [phone] be his medical decision maker. CM left a message for Nathalia. Patient is presently and inmate. trying to release him from prison on a MA [employer]. CM to follow. Date Signed: 03/04/2018 11:35 AM Electronically Signed By:Rebeka Anderson LCSW
--- NOTE | 2018-03-04 21:35 | ASMTCMCOM ---
CM Note CM Note Notes: [facility] called to give this CM another possible name for Med Proxy: Olga Oliver, . This CM left a message with this #. The skilled nursing reports that they assisted patient in reapplying for Medicaid and that he should be Medicaid "pending" at this time. José Miguel Funes MD was here for Ethics today and said that he could step in as a physician Proxy if needed. May need an Order for Physician Proxy. Date Signed: 03/04/2018 03:33 PM Electronically Signed By:Rebeka Anderson LCSW
[2018-03-05] MEDS: NS 1,000 ML IV SCH ×3 (00:14→16:54)
[2018-03-05] MEDS: AMPICILLIN/SULBACTAM 3 GM in NS 100 ML IV SCH ×5 (00:14→23:49)
[2018-03-05 03:27] LABS: PLATELET COUNT 147 10^3/uL (150-400)
[2018-03-05] MEDS: LORazepam 2 MG/ML INJ IVP PRN ×3 (03:53→13:45)
[2018-03-05] MEDS: ENTACAPONE 200 MG TAB TUBE SCH ×4 (06:03→19:13)
[2018-03-05] MEDS: CARBIDOPA/LEVODOPA 25 MG/100 MG TAB TUBE SCH ×4 (06:04→18:16)
[2018-03-05] MEDS: SELEGILINE HCL 5 MG CAP PO SCH (08:42)
[2018-03-05] MEDS ORDERED: TAMSULOSIN HCL 0.4 MG CAP PO SCH (09:00)
[2018-03-05] MEDS: ENOXAPARIN 40 MG/0.4 ML SYR SC SCH (10:52)
[2018-03-05] MEDS: DEXMEDETOMIDINE HCL 400 MCG in NS 100 ML IV SCH (11:39)
[2018-03-05] MEDS: FAMOTIDINE 20 MG/NACL 50 ML IV SCH ×2 (11:39→20:39)
--- NOTE | 2018-03-05 15:22 | ASMTCMCOM ---
CM Note CM Note Notes: Spoke with Jacqueline, patient's friiend who he named for possible proxy. She is unable to serve as proxy for patient until after the first of the year. Per CM report Nathalia said no to serving as proxy. Spoke with Ethics to request they review for MD proxy for this hospitalization for patient. Ethics will get in touch with Dr. Funes and let us know. CM will follow. Date Signed: 03/05/2018 03:21 PM Electronically Signed By:Porsha Harris LCSW
--- NOTE | 2018-03-05 15:53 | HOSPPROG ---
Hospitalist Progress Note Assessment/Plan: * Respiratory arrest due food aspiration s/p Heimlich * PEA arrest s/p CPR - due to respiratory arrest * Possible anoxic encephalopathy -agitated, moving extremities * Acute respiratory failure -extubated self - doing okay * Aspiration PNA -IV Unasyn * Parkinson's -can't give Sinemet as not taking PO -failed attempt NGT placement * Metabolic encephalopathy -post arrest, due to PNA -check head CT -IV Precedex for agitation * Dysphagia -NPO until passes swallow eval -high risk given Parkinson's and witnessed steak aspiration event * Rib fractures -due to CPR Subjective: No purposeful discussion, not following commands, agitated Objective: Vital Signs Temp Pulse Resp BP Pulse Ox 37.6 C 74 20 132/68 H 93 03/05/18 14:00 03/05/18 14:00 03/05/18 14:00 03/05/18 14:00 03/05/18 14:00 Laboratory Results 03/05/18 03:20 03/05/18 03:20 03/04/18 03/05/18 03/06/18 05:59 05:59 05:59 Intake Total 1791 3311 Output Total 550 1800 Balance 1241 1511 d/w Dr. Barroso ICU rounds - Physical Exam Constitutional: no apparent distress, appears nourished, not in pain Cardiovascular: regular rate and rhythym, no murmur, rub, or gallop Respiratory: no respiratory distress, no rales or rhonchi, clear to auscultation Gastrointestinal: normoactive bowel sounds, soft, non-tender abdomen, no palpable masses Skin: no rashes or abrasions, no fluctuance, no induration Neurologic: No AAOx3 Psychiatric: encephalopathic, agitated, poor insight, poor judgement, poor memory, No interacting appropriately ICD10 Worksheet Patient Problems: Problems Problem Status Onset Parkinson disease Acute Aggressive behavior Acute Hand abrasion Acute Parkinson's disease dementia Acute Scalp abrasion Acute Airway obstruction due to foreign body Acute
--- NOTE | 2018-03-05 16:29 | ASMTCMCOM ---
CM Note CM Note Notes: Ethics called back to say Dr. Funes will serve as MD proxy if the patient becomes non decisional again. Patient was extubated yesterday and is currently unable to communicate. If there is a need after hours page the dog pound attendant and request Dr. Funes with Ethics. CM will follow. Date Signed: 03/05/2018 04:29 PM Electronically Signed By:Porsha Harris LCSW
--- NOTE | 2018-03-05 17:00 | PDINTPN ---
Intelligence Director Progress Note Assessment/Plan: 72 M with frequent incarceration (nearly fulltime for > 1 mo) and frequent hospitalizations found by cell mate to be choking on food. A heimlich was attempted but unsuccessful and he became unresponsive. Though details are uncertain, he was then found to be pulsless and CPR initiated, while food particulate matter was removed from the pharynx. CPR time was about 10 minutes and no details are available as to presenting rhythm. An attempt at standard intubation failed as did an LMA, but he was eventually controlled with a Kb airway until arrival in the ED, where he was intubated with RSI. Additional food was suctioned from the pharynx at that time. A CXR revelaed RUL infiltrate and he was treated with unasyn, followed by bronchoscopy the next morning which did not reveal any additional food in the airway. * Cardiac arrest- presumably from hypoxia/aspiration which would fit most consistently with PEA, though details are uncertain. Its difficult to assess his mental status currently since we dont know his baseline and he has no family contacts (multiple previous attempts at previous hospitalizations) and he has not received his parkinsons meds since he was intubated. His precedex was restarted 03/05, 2 agitation and we will check a head CT. We may need a neuro consult * Acute respiratory failure with hypoxia- he was extubated 03/04 without difficulty and maintained a minimal O2 requirement overnight. Recheck CXR in AM. Did not self-extubate. * aspiration PNA/pneumonitis- remains on unasyn with a decreased wbc. Cx NTD. * altered mental status- not clear if anoxic encephalopathy versus parkinsons or baseline. Await head CT. Placed feeding tube to allow anti-parkinson meds to be delivered. Once stable and meds ingested, retry dc precedex to allow for neuro exam. * * 45 minutes critical care time * Subjective: agitated without precedex, remains non-communicative Objective: Vital Signs Temp Pulse Resp BP Pulse Ox 37 C 71 17 144/73 H 96 03/05/18 16:00 03/05/18 16:00 03/05/18 16:00 03/05/18 16:00 03/05/18 16:00 Laboratory Results 03/05/18 03:20 03/05/18 03:20 03/04/18 03/05/18 03/06/18 05:59 05:59 05:59 Intake Total 1791 3311 Output Total 550 1800 Balance 1241 1511 Physical Exam - Physical Exam General Appearance: mild distress, thin EENT: PERRL/EOMI, No scleral icterus (R), No scleral icterus (L) Neck: supple Respiratory: lungs clear, normal breath sounds, decreased breath sounds, No respiratory distress, No accessory muscle use Cardiac/Chest: regular rate, rhythm, No edema Abdomen: non-tender, soft, No distended Skin: normal color, warm/dry, No cyanosis Lymphatic: no adenopathy Extremities: No pedal edema Neuro/Psych: alert, cognition abnormalities, No oriented x 3, No abnormal diaper machine tender II -XII ICD10 Worksheet Patient Problems: Problems Problem Status Onset Airway obstruction due to foreign body Acute Aggressive behavior Acute Hand abrasion Acute Parkinson disease Acute Parkinson's disease dementia Acute Scalp abrasion Acute
[2018-03-06] MEDS: LORazepam 2 MG/ML INJ IVP PRN ×3 (00:52→20:53)
[2018-03-06] MEDS: DEXMEDETOMIDINE HCL 400 MCG in NS 100 ML IV SCH ×3 (02:06→20:54)
[2018-03-06] MEDS: NS 1,000 ML IV SCH (04:29)
[2018-03-06 04:33] LABS: PLATELET COUNT 171 10^3/uL (150-400)
[2018-03-06] MEDS: AMPICILLIN/SULBACTAM 3 GM in NS 100 ML IV SCH ×3 (05:43→17:45)
[2018-03-06] MEDS ORDERED: LIDOCAINE 2% JELLY 20 ML (UROJECT) ONE (08:00)
[2018-03-06] MEDS ORDERED: LIDOCAINE 2% JELLY 20 ML (UROJECT) UR ONE (08:00)
[2018-03-06] MEDS: FAMOTIDINE 20 MG/NACL 50 ML IV SCH (09:06)
[2018-03-06] MEDS: ENOXAPARIN 40 MG/0.4 ML SYR SC SCH (09:06)
[2018-03-06] MEDS: SELEGILINE HCL 5 MG CAP PO SCH (09:15)
[2018-03-06] MEDS: ENTACAPONE 200 MG TAB TUBE SCH ×4 (09:18→21:57)
[2018-03-06] MEDS: CARBIDOPA/LEVODOPA 25 MG/100 MG TAB TUBE SCH ×4 (09:19→17:46)
[2018-03-06] MEDS ORDERED: BISACODYL 10 MG SUPP PR PRN (10:48)
[2018-03-06] MEDS ORDERED: hydrALAZINE 20 MG/ML VIAL IVP PRN (10:48)
[2018-03-06] MEDS ORDERED: POLYETHYLENE GLYCOL 3350 17 GM PKT PO PRN (10:48)
[2018-03-06] MEDS ORDERED: LACTULOSE 20 GM/30 ML UDCUP PO PRN (10:48)
[2018-03-06] MEDS ORDERED: MAGNESIUM HYDROXIDE 30 ML UDCUP PO PRN (10:48)
[2018-03-06] MEDS ORDERED: POLYETHYLENE GLYCOL 3350 17 GM PKT TUBE PRN (11:30)
[2018-03-06] MEDS ORDERED: MAGNESIUM HYDROXIDE 30 ML UDCUP TUBE PRN (11:30)
[2018-03-06] MEDS ORDERED: LACTULOSE 20 GM/30 ML UDCUP TUBE PRN (11:30)
[2018-03-06] MEDS: SENNOSIDES 17.6 MG/10 ML UDL TUBE SCH ×2 (12:47→21:57)
--- NOTE | 2018-03-06 16:18 | HOSPPROG ---
Hospitalist Progress Note Assessment/Plan: * Respiratory arrest due food aspiration s/p Heimlich * PEA arrest s/p CPR - due to respiratory arrest * Possible anoxic encephalopathy -agitated, moving extremities * Acute respiratory failure -extubated self - doing okay * Aspiration PNA -IV Unasyn * Parkinson's -Sinemet down NGT * Metabolic encephalopathy -post arrest, due to PNA -IV Precedex for agitation * Dysphagia -NPO until passes swallow eval -high risk given Parkinson's and witnessed steak aspiration event * Rib fractures -due to CPR Subjective: Yelled to words today "NO" and "STOP" otherwise mostly unresponsive Objective: Vital Signs Temp Pulse Resp BP Pulse Ox 36.5 C 67 18 169/83 H 97 03/06/18 14:00 03/06/18 14:00 03/06/18 14:00 03/06/18 14:00 03/06/18 14:00 Laboratory Results 03/06/18 04:20 03/06/18 04:20 03/05/18 03/06/18 03/07/18 05:59 05:59 05:59 Intake Total 3311 3370.9 Output Total 1800 1325 Balance 1511 2045.9 CXR viewed, my personal interpretation is - increased infiltrate, especially RUL d/w Dr. Barroso ICU rounds - Physical Exam Constitutional: no apparent distress, appears nourished, not in pain Cardiovascular: regular rate and rhythym, No JVD, No edema Respiratory: inspiratory crackles, rhonchi Gastrointestinal: normoactive bowel sounds, soft, non-tender abdomen, no palpable masses Skin: no rashes or abrasions, no fluctuance, no induration Neurologic: No AAOx3 Psychiatric: encephalopathic, agitated, poor insight, poor judgement, poor memory, No interacting appropriately ICD10 Worksheet Patient Problems: Problems Problem Status Onset Airway obstruction due to foreign body Acute Aggressive behavior Acute Hand abrasion Acute Parkinson disease Acute Parkinson's disease dementia Acute Scalp abrasion Acute
[2018-03-06] MEDS ORDERED: NS 1,000 ML IV SCH (17:30)
--- NOTE | 2018-03-06 18:32 | PDINTPN ---
Decorator Lighting Fixtures Progress Note Assessment/Plan: 72 M with frequent incarceration (nearly fulltime for > 1 mo) and frequent hospitalizations found by cell mate to be choking on food. A heimlich was attempted but unsuccessful and he became unresponsive. Though details are uncertain, he was then found to be pulsless and CPR initiated, while food particulate matter was removed from the pharynx. CPR time was about 10 minutes and no details are available as to presenting rhythm. An attempt at standard intubation failed as did an LMA, but he was eventually controlled with a Kb airway until arrival in the ED, where he was intubated with RSI. Additional food was suctioned from the pharynx at that time. A CXR revelaed RUL infiltrate and he was treated with unasyn, followed by bronchoscopy the next morning which did not reveal any additional food in the airway. * Cardiac arrest- presumably from hypoxia/aspiration which would fit most consistently with PEA, though details are uncertain. Its difficult to assess his mental status currently since we dont know his baseline and he has no family contacts (multiple previous attempts at previous hospitalizations) and he has not received his parkinsons meds since he was intubated. Weighted NGT placed today and will start parkinsons meds and observe. Eventiual head ct. * Acute respiratory failure with hypoxia- he was extubated 03/04 without difficulty and maintained a minimal O2 requirement overnight. CXR was a bit worse but needs are stable. * aspiration PNA/pneumonitis- remains on unasyn with a decreased wbc. Cx NTD. * altered mental status- not clear if anoxic encephalopathy versus parkinsons or baseline. Await head CT. * 03/06/18 18:30 03/06/18 18:31 Subjective: less agitated today but unable to get NGT placed until earlier today Objective: Vital Signs Temp Pulse Resp BP Pulse Ox 36.6 C 64 20 159/83 H 96 03/06/18 18:00 03/06/18 18:00 03/06/18 18:00 03/06/18 18:00 03/06/18 18:00 Laboratory Results 03/06/18 04:20 03/06/18 04:20 03/05/18 03/06/18 03/07/18 05:59 05:59 05:59 Intake Total 3311 3370.9 1541 Output Total 1800 1325 1000 Balance 1511 2045.9 541 Physical Exam - Physical Exam General Appearance: alert, anxiety, other (non verbal) EENT: PERRL/EOMI, No scleral icterus (R), No scleral icterus (L) Neck: supple Respiratory: crackles, rhonchi, No respiratory distress, No accessory muscle use Cardiac/Chest: regular rate, rhythm, No edema Abdomen: non-tender, soft, No distended Skin: normal color, warm/dry, No cyanosis Lymphatic: no adenopathy Extremities: No pedal edema Neuro/Psych: cognition abnormalities, No abnormal hog ringer II-XII ICD10 Worksheet Patient Problems: Problems Problem Status Onset Airway obstruction due to foreign body Acute Aggressive behavior Acute Hand abrasion Acute Parkinson disease Acute Parkinson's disease dementia Acute Scalp abrasion Acute
[2018-03-06] MEDS ORDERED: SENNOSIDES/DOCUSATE SODIUM TAB PO SCH (21:00)
[2018-03-07] MEDS: AMPICILLIN/SULBACTAM 3 GM in NS 100 ML IV SCH ×4 (00:38→17:07)
[2018-03-07] MEDS: ACETAMINOPHEN 650 MG/20.3 ML UDCUP PO PRN (03:05)
[2018-03-07] MEDS: DEXMEDETOMIDINE HCL 400 MCG in NS 100 ML IV SCH ×4 (05:04→23:42)
[2018-03-07] MEDS: ENTACAPONE 200 MG TAB TUBE SCH ×4 (05:47→20:43)
[2018-03-07 06:29] LABS: PLATELET COUNT 197 10^3/uL (150-400)
[2018-03-07] MEDS: CARBIDOPA/LEVODOPA 25 MG/100 MG TAB TUBE SCH ×4 (07:52→18:26)
[2018-03-07] MEDS: ENOXAPARIN 40 MG/0.4 ML SYR SC SCH (07:53)
[2018-03-07] MEDS: SELEGILINE HCL 5 MG CAP PO SCH (07:53)
[2018-03-07] MEDS: SENNOSIDES 17.6 MG/10 ML UDL TUBE SCH ×2 (07:53→20:43)
[2018-03-07] MEDS: LORazepam 2 MG/ML INJ IVP PRN ×3 (09:43→20:29)
--- NOTE | 2018-03-07 11:15 | HOSPPROG ---
Hospitalist Progress Note Assessment/Plan: * Respiratory arrest due food aspiration s/p Heimlich * PEA arrest s/p CPR - due to respiratory arrest * Possible anoxic encephalopathy - nothing acute on head CT 03/03 * Acute respiratory failure - extubated -wean O2 as able * Aspiration PNA -cont IV Unasyn * Parkinson's -Sinemet down NGT * Metabolic encephalopathy - post arrest, due to PNA, suspect some baseline cognitive deficits with parkinsons hx -IV Precedex for agitation, wean as able * Dysphagia -NPO until passes swallow eval -high risk given Parkinson's and witnessed steak aspiration event * Bloody emesis - one episode -hold tube feeds for now, restart trickle feeds tonight -start pepcid per tube * Rib fractures -due to CPR * Agitation - prn zyprexa, ativan, wean precedex as able * FEN - on tube feeds at 25/hr, held today give bloody emesis, restart tonight at 10 mLs/hr * DVT PPLX - Lovenox held with bloody emesis * Dispo - cont icu * Full code Subjective: Pt is agitated, still on precedex. No fevers/chills. Doesn't seem to be coughing much, but RN reported one episode of bloody emesis this afternoon. His speech is non-sensical Objective: Vital Signs Temp Pulse Resp BP Pulse Ox 37.2 C 62 22 H 149/72 H 93 03/07/18 10:00 03/07/18 10:00 03/07/18 10:00 03/07/18 10:00 03/07/18 10:00 Laboratory Results 03/07/18 05:50 03/07/18 05:50 03/06/18 03/07/18 03/08/18 05:59 05:59 05:59 Intake Total 3370.9 3444 Output Total 1325 2750 Balance 2045.9 694 - Physical Exam Constitutional: chronically ill appearing Eyes: PERRL Ears, Nose, Mouth, Throat: moist mucous membranes Cardiovascular: regular rate and rhythym Respiratory: no respiratory distress, reduced air movement Gastrointestinal: normoactive bowel sounds, soft, non-tender abdomen Skin: warm Musculoskeletal: generalized weakness Psychiatric: encephalopathic ICD10 Worksheet Patient Problems: Problems Problem Status Onset Airway obstruction due to foreign body Acute Aggressive behavior Acute Hand abrasion Acute Parkinson disease Acute Parkinson's disease dementia Acute Scalp abrasion Acute
[2018-03-07] MEDS ORDERED: OLANZapine DISINTEGR 5 MG TAB PO PRN (11:17)
[2018-03-07] MEDS ORDERED: OLANZapine 2.5 MG TAB TUBE PRN ×2 (11:30→16:34)
[2018-03-07] MEDS ORDERED: PROTOCOL POTASSIUM 1 DOSE MISC PRN (11:31)
[2018-03-07] MEDS ORDERED: LORazepam 2 MG/ML INJ IVP PRN (11:31)
[2018-03-07] MEDS ORDERED: POTASSIUM CL 10 MEQ TAB TUBE ONE ×2 (11:41→19:33)
[2018-03-07] MEDS ORDERED: POTASSIUM CL 20 MEQ/15 ML UDCUP TUBE ONE (12:00)
[2018-03-07] MEDS ORDERED: ONDANSETRON 4 MG/2 ML VIAL IVP PRN (13:44)
--- NOTE | 2018-03-07 15:15 | PDINTPN ---
Contract Modeler Progress Note Assessment/Plan: 72 M with frequent incarceration (nearly fulltime for > 1 mo) and frequent hospitalizations found by cell mate to be choking on food. A heimlich was attempted but unsuccessful and he became unresponsive. Though details are uncertain, he was then found to be pulsless and CPR initiated, while food particulate matter was removed from the pharynx. CPR time was about 10 minutes and no details are available as to presenting rhythm. An attempt at standard intubation failed as did an LMA, but he was eventually controlled with a Kb airway until arrival in the ED, where he was intubated with RSI. Additional food was suctioned from the pharynx at that time. A CXR revelaed RUL infiltrate and he was treated with unasyn, followed by bronchoscopy the next morning which did not reveal any additional food in the airway. * Cardiac arrest- presumably from hypoxia/aspiration which would fit most consistently with PEA, though details are uncertain. Its difficult to assess his mental status currently since we dont know his baseline and he has no family contacts (multiple previous attempts at previous hospitalizations). NGT placed but parkinsons meds with little effect. Started Zyprexa today. Admission head CT unremarkable. Remains on precedex * Acute respiratory failure with hypoxia- he was extubated 03/04 without difficulty and maintained a minimal O2 requirement overnight. CXR was a bit worse but needs are stable. * aspiration PNA/pneumonitis- remains on unasyn with a decreased wbc. Cx NTD. * altered mental status- not clear if anoxic encephalopathy versus parkinsons or baseline. Await head CT. * Emesis with blood- likely from NGT placement 03/06 and doubt gib with increasing Hct. Observe 03/06/18 18:30 03/06/18 18:31 03/07/18 15:13 Subjective: required precedex overnight for uncontrollable behavior- . Objective: Vital Signs Temp Pulse Resp BP Pulse Ox 36.6 C 62 18 157/75 H 97 03/07/18 14:00 03/07/18 14:00 03/07/18 14:00 03/07/18 14:00 03/07/18 14:00 Laboratory Results 03/07/18 05:50 03/07/18 05:50 03/06/18 03/07/18 03/08/18 05:59 05:59 05:59 Intake Total 3370.9 3444 Output Total 1320 1100 Balance 2045.9 694 Physical Exam - Physical Exam General Appearance: alert, mild distress, other (non verbal to me) EENT: PERRL/EOMI Neck: supple Respiratory: lungs clear, normal breath sounds, decreased breath sounds, No respiratory distress, No accessory muscle use Cardiac/Chest: regular rate, rhythm, No edema Abdomen: non-tender, soft, No distended Skin: normal color, warm/dry, No cyanosis Lymphatic: no adenopathy Extremities: No pedal edema Neuro/Psych: cognition abnormalities, No abnormal psych tech II-XII ICD10 Worksheet Patient Problems: Problems Problem Status Onset Airway obstruction due to foreign body Acute Aggressive behavior Acute Hand abrasion Acute Parkinson disease Acute Parkinson's disease dementia Acute Scalp abrasion Acute
[2018-03-07] MEDS: FAMOTIDINE 20 MG TAB TUBE SCH ×2 (15:19→20:43)
[2018-03-08] MEDS: AMPICILLIN/SULBACTAM 3 GM in NS 100 ML IV SCH ×4 (00:56→17:29)
[2018-03-08] MEDS: LORazepam 2 MG/ML INJ IVP PRN ×2 (00:57→18:43)
[2018-03-08] MEDS: ENTACAPONE 200 MG TAB TUBE SCH ×4 (06:10→20:38)
[2018-03-08] MEDS: CARBIDOPA/LEVODOPA 25 MG/100 MG TAB TUBE SCH ×4 (07:31→18:25)
[2018-03-08] MEDS ORDERED: POTASSIUM CL 20 MEQ/15 ML UDCUP TUBE ONE ×2 (09:15→19:00)
[2018-03-08] MEDS: FAMOTIDINE 20 MG TAB TUBE SCH ×2 (09:29→20:38)
[2018-03-08] MEDS: SENNOSIDES 17.6 MG/10 ML UDL TUBE SCH ×2 (09:29→20:39)
[2018-03-08] MEDS: SELEGILINE HCL 5 MG CAP PO SCH (09:29)
--- NOTE | 2018-03-08 12:23 | HOSPPROG ---
Hospitalist Progress Note Assessment/Plan: * Respiratory arrest due food aspiration s/p Heimlich * PEA arrest s/p CPR - due to respiratory arrest * Possible anoxic encephalopathy - nothing acute on head CT 03/03, mentation improved * Acute respiratory failure - extubated -wean O2 as able * Aspiration PNA -cont IV Unasyn, can likely change to po augmentin soon * Parkinson's -Sinemet per NGT, may be able to start taking po again * Metabolic encephalopathy - post arrest, due to PNA, suspect some baseline cognitive deficits with parkinsons hx, seems close to baseline today * Agitation - IV Precedex off this am -defer anti-psychotics- ?lewy body dz and zyprexa could worsen motor symptoms of parkinsons with dopamine vicenta effects * Dysphagia - improved, ok for po today per speech * Bloody emesis - one episode yesterday, has not recurred -cont pepcid * Rib fractures -due to CPR * FEN - dc feeding tube today * DVT PPLX - resume lovenox * Dispo - cont icu * Full code Subjective: Pt is more conversive, able to tell me his name and where he is, seems closer to baseline. Denies pain. No fevers, cough, CP or SOB. Taking po better. Objective: Vital Signs Temp Pulse Resp BP Pulse Ox 36.6 C 76 21 H 125/67 H 93 03/08/18 11:44 03/08/18 11:44 03/08/18 11:44 03/08/18 11:44 03/08/18 11:44 Laboratory Results 03/07/18 05:50 03/08/18 04:15 03/07/18 03/08/18 03/09/18 05:59 05:59 05:59 Intake Total 3444 3221 Output Total 6960 5400 Balance 894 -2931 - Physical Exam Constitutional: no apparent distress Eyes: PERRL Ears, Nose, Mouth, Throat: moist mucous membranes Cardiovascular: regular rate and rhythym Respiratory: no respiratory distress, reduced air movement, inspiratory crackles Gastrointestinal: normoactive bowel sounds, soft, non-tender abdomen Skin: warm Musculoskeletal: generalized weakness Neurologic: AAOx3 Psychiatric: poor insight, poor memory ICD10 Worksheet Patient Problems: Problems Problem Status Onset Airway obstruction due to foreign body Acute Aggressive behavior Acute Hand abrasion Acute Parkinson disease Acute Parkinson's disease dementia Acute Scalp abrasion Acute
--- NOTE | 2018-03-08 13:59 | PDINTPN ---
Multicut Line Operator Progress Note Assessment/Plan: 72 M with frequent incarceration (nearly fulltime for > 1 mo) and frequent hospitalizations found by cell mate to be choking on food. A heimlich was attempted but unsuccessful and he became unresponsive. Though details are uncertain, he was then found to be pulsless and CPR initiated, while food particulate matter was removed from the pharynx. CPR time was about 10 minutes and no details are available as to presenting rhythm. An attempt at standard intubation failed as did an LMA, but he was eventually controlled with a Kb airway until arrival in the ED, where he was intubated with RSI. Additional food was suctioned from the pharynx at that time. A CXR revelaed RUL infiltrate and he was treated with unasyn, followed by bronchoscopy the next morning which did not reveal any additional food in the airway. * Cardiac arrest- presumably from hypoxia/aspiration which would fit most consistently with PEA, though details are uncertain. Its difficult to assess his mental status currently since we dont know his baseline and he has no family contacts (multiple previous attempts at previous hospitalizations). NGT placed but parkinsons meds with little effect. Admission head CT unremarkable. zyprexa held andprecedex off this am. RN reports improved mental status and cooperation. My conversation was fairly lucid, though I had difficulty understanding him due to speech * Acute respiratory failure with hypoxia- he was extubated 03/04 without difficulty and maintained a minimal O2 requirement overnight. CXR was a bit worse but needs are stable. * aspiration PNA/pneumonitis- remains on unasyn with a decreased wbc. Cx NTD. * altered mental status- not clear if anoxic encephalopathy versus parkinsons or baseline. Improving. No head CT needed at this point. * Emesis with blood- likely from NGT placement 03/06 and doubt gib with increasing Hct. Observe Subjective: improved mental status today after sleeping with precedex Objective: Vital Signs Temp Pulse Resp BP Pulse Ox 36.6 C 76 21 H 125/67 H 93 03/08/18 11:44 03/08/18 11:44 03/08/18 11:44 03/08/18 11:44 03/08/18 11:44 Laboratory Results 03/07/18 05:50 03/08/18 04:15 03/07/18 03/08/18 03/09/18 05:59 05:59 05:59 Intake Total 3444 3221 380 Output Total 0133 3565 Balance 708 -3853 449 Physical Exam - Physical Exam General Appearance: alert, no apparent distress, thin EENT: PERRL/EOMI, No scleral icterus (R), No scleral icterus (L) Neck: supple Respiratory: lungs clear, normal breath sounds, decreased breath sounds, No respiratory distress, No accessory muscle use Cardiac/Chest: regular rate, rhythm, No edema Abdomen: non-tender, soft, No distended Skin: normal color, warm/dry, No cyanosis Lymphatic: no adenopathy Extremities: No pedal edema Neuro/Psych: alert, oriented x 3, cognition abnormalities ICD10 Worksheet Patient Problems: Problems Problem Status Onset Airway obstruction due to foreign body Acute Aggressive behavior Acute Hand abrasion Acute Parkinson disease Acute Parkinson's disease dementia Acute Scalp abrasion Acute
[2018-03-08] MEDS: TAMSULOSIN HCL 0.4 MG CAP PO SCH (14:06)
[2018-03-08] MEDS: ACETAMINOPHEN 650 MG/20.3 ML UDCUP PO PRN (16:10)
--- NOTE | 2018-03-08 17:41 | ASMTCMCOM ---
CM Note CM Note Notes: Discussed pt in rounds. Pt admitted for aspiration and cardiac arrest from the senior living. Pt intubated and non-decisional for a time at which time Ethics called to say Dr. Funes will serve as MD proxy if the patient becomes non decisional again. Patient was extubated and is currently able to communicate. If there is a need after hours page the hydrology teacher and request Dr. Funes with Ethics. Pt likely to discharge to senior living. CM will follow. Date Signed: 03/08/2018 05:40 PM Electronically Signed By:Anastasia Le
[2018-03-08] MEDS: DEXMEDETOMIDINE HCL 400 MCG in NS 100 ML IV SCH (20:42)
[2018-03-09] MEDS: AMPICILLIN/SULBACTAM 3 GM in NS 100 ML IV SCH ×4 (00:35→17:50)
[2018-03-09] MEDS: DEXMEDETOMIDINE HCL 400 MCG in NS 100 ML IV SCH (03:01)
[2018-03-09] MEDS: CARBIDOPA/LEVODOPA 25 MG/100 MG TAB TUBE SCH (06:24)
[2018-03-09] MEDS: ENTACAPONE 200 MG TAB TUBE SCH (06:25)
[2018-03-09] MEDS: ACETAMINOPHEN 650 MG/20.3 ML UDCUP PO PRN (07:15)
[2018-03-09] MEDS: ENOXAPARIN 40 MG/0.4 ML SYR SC SCH (07:15)
[2018-03-09] MEDS: FAMOTIDINE 20 MG TAB TUBE SCH (07:16)
[2018-03-09] MEDS: SELEGILINE HCL 5 MG CAP PO SCH (07:16)
[2018-03-09] MEDS: SENNOSIDES 17.6 MG/10 ML UDL TUBE SCH (07:16)
[2018-03-09] MEDS: TAMSULOSIN HCL 0.4 MG CAP PO SCH (07:16)
[2018-03-09] MEDS ORDERED: POLYETHYLENE GLYCOL 3350 17 GM PKT PO PRN (09:00)
--- NOTE | 2018-03-09 09:56 | HOSPPROG ---
Hospitalist Progress Note Assessment/Plan: * Respiratory arrest due food aspiration s/p Heimlich * PEA arrest s/p CPR - due to respiratory arrest * Possible anoxic encephalopathy - nothing acute on head CT 03/03, mentation improved * Acute respiratory failure - extubated -repeat CXR today (worsening appearance 03/06) -wean O2 as able * Aspiration PNA -cont IV Unasyn, day 6/7 * Parkinson's -cont sinemet -hold entacapone due to possible side effects / agitation * Metabolic encephalopathy - post arrest, due to PNA, suspect some baseline cognitive deficits with parkinsons hx, seems close to baseline today * Agitation - IV Precedex off, has required some bzd doses, which is since d /c'd -defer anti-psychotics- ?lewy body dz and zyprexa could worsen motor symptoms of parkinsons with dopamine vicenta effects -hold entacapone, which could contribute to agitation per review by pulm * Dysphagia - improved, cleared by speech for po intake * Bloody emesis - one episode yesterday, has not recurred -cont pepcid * Rib fractures -due to CPR * Left arm pain - previous film suggest humeral head fracture -dedicated humerus xray today- old fracture, nothing acute * DC Aquino * FEN - dc'd feeding tube, taking regular diet * DVT PPLX - lovenox * Dispo - transfer to med/surg * Full code Subjective: Pt doing ok. He is conversing better, mentation improved. Complains of left arm pain. No CP or SOB. Received ativan last night for agitation. Objective: Vital Signs Temp Pulse Resp BP Pulse Ox 37 C 67 21 H 107/64 96 03/09/18 07:34 03/09/18 07:34 03/09/18 07:34 03/09/18 07:34 03/09/18 07:34 Laboratory Results 03/07/18 05:50 03/09/18 05:15 03/08/18 03/09/18 03/10/18 05:59 05:59 05:59 Intake Total 3221 3221 601 Output Total 5400 2950 Balance -2179 271 601 - Physical Exam Constitutional: no apparent distress Eyes: PERRL Ears, Nose, Mouth, Throat: moist mucous membranes Cardiovascular: regular rate and rhythym Respiratory: no respiratory distress, clear to auscultation Gastrointestinal: normoactive bowel sounds, soft, non-tender abdomen Skin: warm Musculoskeletal: generalized weakness Psychiatric: interacting appropriately, poor insight, poor memory ICD10 Worksheet Patient Problems: Problems Problem Status Onset Airway obstruction due to foreign body Acute Aggressive behavior Acute Hand abrasion Acute Parkinson disease Acute Parkinson's disease dementia Acute Scalp abrasion Acute
[2018-03-09 10:09] LABS: PLATELET COUNT 205 10^3/uL (150-400)
[2018-03-09] MEDS: SENNOSIDES/DOCUSATE SODIUM TAB PO SCH ×2 (10:47→21:11)
[2018-03-09] MEDS: FAMOTIDINE 20 MG TAB PO SCH ×2 (10:52→21:12)
[2018-03-09] MEDS: CARBIDOPA/LEVODOPA 25 MG/100 MG TAB PO SCH ×3 (10:52→18:11)
[2018-03-09] MEDS: ENTACAPONE 200 MG TAB PO SCH (10:52)
--- NOTE | 2018-03-09 15:15 | PDINTPN ---
Nutrition Aides Teacher Progress Note Assessment/Plan: 72 M with frequent incarceration (nearly fulltime for > 1 mo) and frequent hospitalizations found by cell mate to be choking on food. A heimlich was attempted but unsuccessful and he became unresponsive. Though details are uncertain, he was then found to be pulsless and CPR initiated, while food particulate matter was removed from the pharynx. CPR time was about 10 minutes and no details are available as to presenting rhythm. An attempt at standard intubation failed as did an LMA, but he was eventually controlled with a Kb airway until arrival in the ED, where he was intubated with RSI. Additional food was suctioned from the pharynx at that time. A CXR revelaed RUL infiltrate and he was treated with unasyn, followed by bronchoscopy the next morning which did not reveal any additional food in the airway. * Cardiac arrest- presumably from hypoxia/aspiration which would fit most consistently with PEA, though details are uncertain. Its difficult to assess his mental status currently since we dont know his baseline and he has no family contacts (multiple previous attempts at previous hospitalizations). NGT placed but parkinsons meds with little effect. Admission head CT unremarkable. Precedex again last pm * Acute respiratory failure with hypoxia- he was extubated 03/04 without difficulty and maintained a minimal O2 requirement overnight. CXR was a bit worse but needs are stable. * aspiration PNA/pneumonitis- remains on unasyn with a decreased wbc. Cx NTD. * altered mental status- not clear if anoxic encephalopathy versus parkinsons or baseline. Improving. No head CT needed at this point. Held Comtan today since review of drug monograph suggest 25% incidence of bizarre and aggressive behavior. Observe for worsening movement disorder. * Emesis with blood- likely from NGT placement 03/06 and doubt gib with increasing Hct. Observe * downgraded to med/surg so will sign off for now. 03/09/18 15:13 Subjective: stable overnight Objective: Vital Signs Temp Pulse Resp BP Pulse Ox 37 C 88 16 110/66 94 03/09/18 12:00 03/09/18 12:00 03/09/18 12:00 03/09/18 12:00 03/09/18 12:00 Laboratory Results 03/09/18 09:05 03/09/18 05:15 03/08/18 03/09/18 03/10/18 05:59 05:59 05:59 Intake Total 3221 3221 841 Output Total 3761 5700 Balance -6251 120 844 Physical Exam - Physical Exam General Appearance: alert, no apparent distress EENT: PERRL/EOMI Neck: supple Respiratory: lungs clear, normal breath sounds, No respiratory distress, No accessory muscle use Cardiac/Chest: regular rate, rhythm, No edema Abdomen: non-tender, soft, No distended Skin: normal color, warm/dry, No cyanosis Lymphatic: no adenopathy Extremities: No pedal edema Neuro/Psych: alert, cognition abnormalities, No abnormal prefabricator II-XII ICD10 Worksheet Patient Problems: Problems Problem Status Onset Airway obstruction due to foreign body Acute Aggressive behavior Acute Hand abrasion Acute Parkinson disease Acute Parkinson's disease dementia Acute Scalp abrasion Acute
[2018-03-09] MEDS: ACETAMINOPHEN 325 MG TAB PO PRN (18:10)
[2018-03-09] MEDS ORDERED: MELATONIN 3 MG TAB PO SCH (21:00)
[2018-03-09] MEDS: oxyCODONE IR 5 MG TAB PO PRN (21:12)
[2018-03-09] MEDS ORDERED: POTASSIUM CL 10 MEQ TAB PO ONE (21:47)
[2018-03-10] MEDS: AMPICILLIN/SULBACTAM 3 GM in NS 100 ML IV SCH ×4 (01:00→17:44)
[2018-03-10] MEDS: CARBIDOPA/LEVODOPA 25 MG/100 MG TAB PO SCH ×4 (06:27→18:47)
[2018-03-10] MEDS: oxyCODONE IR 5 MG TAB PO PRN ×3 (06:30→20:43)
[2018-03-10] MEDS: SELEGILINE HCL 5 MG CAP PO SCH (10:37)
[2018-03-10] MEDS: ENOXAPARIN 40 MG/0.4 ML SYR SC SCH (10:37)
[2018-03-10] MEDS: SENNOSIDES/DOCUSATE SODIUM TAB PO SCH ×2 (10:38→20:45)
[2018-03-10] MEDS: TAMSULOSIN HCL 0.4 MG CAP PO SCH (10:38)
[2018-03-10] MEDS: FAMOTIDINE 20 MG TAB PO SCH ×2 (10:38→20:45)
--- NOTE | 2018-03-10 14:23 | ASMTCMCOM ---
CM Note CM Note Notes: Spoke with Lorraine with [facility] so she can follow up on patient's Medicaid application. The [facility] reported it was pending. Lorraine will get back to case management when she has obtained a release and checked with Medicaid. Patient is doing better today and his mentation has improved. CM will follow. Date Signed: 03/10/2018 11:47 AM Electronically Signed By:Porsha Harris LCSW
--- NOTE | 2018-03-10 14:46 | HOSPPROG ---
Hospitalist Progress Note Assessment/Plan: 72 yo male with h/o Parkinson's dz, poor mobility, admitted from longterm after choking event and respiratory arrest * Respiratory arrest due food aspiration s/p Heimlich * PEA arrest s/p CPR - due to respiratory arrest * Possible anoxic encephalopathy - nothing acute on head CT 03/03, mentation improved * Acute respiratory failure - extubated, 4 LPM -wean O2 as able * Aspiration PNA -today is day 09/28 Unasyn, will d/c tonight after final dose * Parkinson's -cont sinemet -holding entacapone due to possible side effects (25% can have agitation, which has been significant issue for him), may need to resume if motor symptoms worse * Metabolic encephalopathy - post arrest, due to PNA, suspect some baseline cognitive deficits with parkinsons hx -seems back to baseline today * Agitation - IV Precedex off, has received some bzd doses, which is since d /c'd -I've deferred anti-psychotics- zyprexa could worsen motor symptoms of parkinsons with dopamine vicenta effects -hold entacapone, which could contribute to agitation as above * Dysphagia - improved, cleared by speech for po intake * Bloody emesis - possibly 2/2 NG tube placement, had just one episode 03/08, has not recurred -cont pepcid * Rib fractures -due to CPR * Left arm pain - previous film suggested humeral head fracture, this looks to be an old fracture on dedicated humerus xray * DC'd Aquino 03/09 * FEN - dc'd feeding tube, now taking regular diet * DVT PPLX - lovenox * Dispo - cont inpt, transfer to med/surg, CM following. PT note states dispo recs TBD. OT notes do not give dispo rec. Requested re-eval from PT. Unclear if he can go to SNF with insurance or if he will have to return to longterm * Full code Subjective: Pt is a bit distressed over his condom cath. He says he usually knows when he has to urinate and would rather use the urinal. says he didn't sleep at all last night. He has a bit more motor symptoms today, but mentation is much improved. He is taking po better. No fevers/chills. Objective: Vital Signs Temp Pulse Resp BP Pulse Ox 36.9 C 85 19 110/70 91 L 03/10/18 08:01 03/10/18 11:33 03/10/18 11:33 03/10/18 08:01 03/10/18 11:33 Laboratory Results 03/09/18 09:05 03/10/18 04:50 03/09/18 03/10/18 03/11/18 05:59 05:59 05:59 Intake Total 3221 1288 Output Total 2950 1200 Balance 271 88 - Physical Exam Constitutional: no apparent distress, chronically ill appearing Eyes: PERRL Ears, Nose, Mouth, Throat: moist mucous membranes Cardiovascular: regular rate and rhythym Respiratory: no respiratory distress, reduced air movement, inspiratory crackles Gastrointestinal: normoactive bowel sounds, soft, non-tender abdomen Skin: warm Musculoskeletal: abnormal gait, generalized weakness Neurologic: AAOx3 Psychiatric: interacting appropriately, poor insight, poor judgement, poor memory ICD10 Worksheet Patient Problems: Problems Problem Status Onset Airway obstruction due to foreign body Acute Aggressive behavior Acute Hand abrasion Acute Parkinson disease Acute Parkinson's disease dementia Acute Scalp abrasion Acute
[2018-03-10] MEDS: MELATONIN 3 MG TAB PO SCH (20:44)
[2018-03-11] MEDS: oxyCODONE IR 5 MG TAB PO PRN ×3 (02:16→22:01)
[2018-03-11] MEDS: CARBIDOPA/LEVODOPA 25 MG/100 MG TAB PO SCH ×4 (07:12→19:26)
[2018-03-11] MEDS: ENOXAPARIN 40 MG/0.4 ML SYR SC SCH (09:13)
[2018-03-11] MEDS: TAMSULOSIN HCL 0.4 MG CAP PO SCH (09:13)
[2018-03-11] MEDS: SENNOSIDES/DOCUSATE SODIUM TAB PO SCH ×2 (09:13→20:08)
[2018-03-11] MEDS: SELEGILINE HCL 5 MG CAP PO SCH (09:14)
[2018-03-11] MEDS: FAMOTIDINE 20 MG TAB PO SCH ×2 (09:14→20:08)
--- NOTE | 2018-03-11 09:41 | ASMTCMCOM ---
CM Note CM Note Notes: The retirement has released the patient and as a result patient's discharge plan is no longer return to retirement. An email inquiry has been sent to the [facility] to see if patient is allowed to return there at this time. Patient has no family. Case will be escalated to Oliva Lopez, [employer] Watch[employer], since it will likely be a difficult placement. CM will follow. Date Signed: 03/11/2018 09:41 AM Electronically Signed By:Porsha Harris LCSW
--- NOTE | 2018-03-11 10:43 | ASMTCMCOM ---
CM Note CM Note Notes: Case referred to [facility] to follow in the community. CM will follow. Date Signed: 03/11/2018 10:43 AM Electronically Signed By:Porsha Harris LCSW
--- NOTE | 2018-03-11 14:24 | HOSPPROG ---
Hospitalist Progress Note Assessment/Plan: Mr Laura is a 72 yo male with h/o Parkinson's dz, poor mobility, admitted from half-way after choking event and respiratory arrest. First encounter, chart reviewed. * Respiratory arrest due food aspiration s/p Heimlich * PEA arrest s/p CPR - due to respiratory arrest * Possible anoxic encephalopathy - nothing acute on head CT 03/03, mentation improved * Acute respiratory failure - extubated, 4 LPM -wean O2 as able -will add duonebs * Aspiration PNA -received full treatment w Unasyn * Parkinson's -cont Sinemet -holding entacapone due to possible side effects (25% can have agitation, which has been significant issue for him), may need to resume if motor symptoms worse * Metabolic encephalopathy - post arrest, due to PNA, suspect some baseline cognitive deficits with parkinsons hx -seems back to baseline today * Agitation - had been on Precedex in the ICU, he is calm today -defer anti-psychotics- zyprexa could worsen motor symptoms of Parkinson with dopamine vicenta effects -hold entacapone, which could contribute to agitation as above * Dysphagia - improved, cleared by speech for po intake * Bloody emesis - possibly 2/2 NG tube placement, had just one episode 03/08, has not recurred -cont pepcid * Rib fractures -due to CPR * Left arm pain - previous film suggested humeral head fracture, this looks to be an old fracture on dedicated humerus xray * DVT PPLX - lovenox * Dispo - cont inpt, CM following. No longer needs to return to the half-way. Difficult dispo. Has no where to go. He has been banned from the care home and [facility] no [facility] due to inappropriate behavior. Reviewed his care w CM and they are looking at resources- he may end up in a hotel with meals on wheels. Subjective: Liban wants to be treated again for pneumonia, says he is coughing up sputum. Objective: Vital Signs Temp Pulse Resp BP Pulse Ox 37.0 C 87 18 102/68 90 L 03/11/18 07:31 03/11/18 07:31 03/11/18 07:31 03/11/18 07:31 03/11/18 07:31 Laboratory Results 03/09/18 09:05 03/11/18 04:30 03/10/18 03/11/18 03/12/18 05:59 05:59 05:59 Intake Total 1285 440 Output Total 1200 850 300 Balance 88 -410 -300 - Physical Exam Constitutional: not in pain, chronically ill appearing Eyes: PERRL Ears, Nose, Mouth, Throat: hearing normal Cardiovascular: regular rate and rhythym Respiratory: no respiratory distress, rhonchi (scattered) Skin: warm Neurologic: other (alert, difficult to understand ) Psychiatric: other (impulsive) ICD10 Worksheet Patient Problems: Problems Problem Status Onset Airway obstruction due to foreign body Acute Aggressive behavior Acute Hand abrasion Acute Parkinson disease Acute Parkinson's disease dementia Acute Scalp abrasion Acute
[2018-03-11] MEDS: IPRATROPIUM/ALBUTEROL 3 ML DEYVIAL IH SCH ×2 (17:13→21:26)
[2018-03-11] MEDS: MELATONIN 3 MG TAB PO SCH (20:08)
[2018-03-11] MEDS: ACETAMINOPHEN 325 MG TAB PO PRN (20:15)
[2018-03-11] MEDS ORDERED: POTASSIUM CL 10 MEQ TAB PO ONE (21:09)
[2018-03-12] MEDS: IPRATROPIUM/ALBUTEROL 3 ML DEYVIAL IH SCH ×3 (05:57→17:04)
[2018-03-12] MEDS: CARBIDOPA/LEVODOPA 25 MG/100 MG TAB PO SCH ×4 (06:10→21:01)
[2018-03-12] MEDS: TAMSULOSIN HCL 0.4 MG CAP PO SCH (08:19)
[2018-03-12] MEDS: ENOXAPARIN 40 MG/0.4 ML SYR SC SCH (08:19)
[2018-03-12] MEDS: FAMOTIDINE 20 MG TAB PO SCH ×2 (08:19→21:02)
[2018-03-12] MEDS: SENNOSIDES/DOCUSATE SODIUM TAB PO SCH ×2 (08:19→21:02)
[2018-03-12] MEDS: SELEGILINE HCL 5 MG CAP PO SCH (08:19)
--- NOTE | 2018-03-12 08:55 | HOSPPROG ---
Hospitalist Progress Note Assessment/Plan: Mr Laura is a 72 yo male with h/o Parkinson's dz, poor mobility, admitted from half-way after choking event and respiratory arrest. * Respiratory arrest due food aspiration s/p Heimlich * PEA arrest s/p CPR - due to respiratory arrest * Possible anoxic encephalopathy - nothing acute on head CT 03/03, mentation improved * Acute respiratory failure - extubated, 4 LPM -wean O2 as able -will add duonebs * Aspiration PNA -received full treatment w Unasyn * Parkinson's -cont Sinemet -resumed entacapone -reviewed his care w PT and he is having difficulty w movement, had been on hold due to (25% can have agitation, which has been significant issue for him), at baseline he uses a wheelchair * Metabolic encephalopathy - post arrest, due to PNA, suspect some baseline cognitive deficits with parkinsons hx -back to baseline * Agitation - had been on Precedex in the ICU, he is calm today -defer anti-psychotics- zyprexa could worsen motor symptoms of Parkinson with dopamine vicenta effects * Dysphagia - improved, cleared by speech for po intake * Bloody emesis - possibly 2/2 NG tube placement, had just one episode 03/08, has not recurred -cont pepcid -non furher * Rib fractures -due to CPR * Left arm pain - previous film suggested humeral head fracture, this looks to be an old fracture on dedicated humerus xray * DVT PPLX - lovenox * Dispo - cont inpt, CM following. No longer needs to return to the half-way. disposition is difficult. Subjective: Liban wants his Parkinson's meds resumed. Objective: Vital Signs Temp Pulse Resp BP Pulse Ox 36.8 C 78 20 107/60 91 L 03/12/18 07:20 03/12/18 07:20 03/12/18 07:20 03/12/18 07:20 03/12/18 07:20 Laboratory Results 03/09/18 09:05 03/12/18 04:50 03/11/18 03/12/18 03/13/18 05:59 05:59 05:59 Intake Total 440 940 Output Total 1050 820 Balance -610 120 - Physical Exam Constitutional: chronically ill appearing, other (thin) Eyes: PERRL Ears, Nose, Mouth, Throat: hearing normal Cardiovascular: regular rate and rhythym Respiratory: no respiratory distress, rhonchi (few scatterer, lung sounds better today) Skin: warm Musculoskeletal: generalized weakness Neurologic: AAOx3 Psychiatric: not encephalopathic, poor insight ICD10 Worksheet Patient Problems: Problems Problem Status Onset Airway obstruction due to foreign body Acute Aggressive behavior Acute Hand abrasion Acute Parkinson disease Acute Parkinson's disease dementia Acute Scalp abrasion Acute
[2018-03-12] MEDS: ENTACAPONE 200 MG TAB PO SCH ×3 (11:22→21:02)
--- NOTE | 2018-03-12 14:22 | ASMTCMCOM ---
CM Note CM Note Notes: Pt does not need to return to half-way, looking for placement but may prove difficult d/t pt's past behaviors and time in half-way. DC Plan: TBD Date Signed: 03/12/2018 02:21 PM Electronically Signed By:Tania Fitch RN
[2018-03-12] MEDS: MELATONIN 3 MG TAB PO SCH (21:01)
[2018-03-13] MEDS: oxyCODONE IR 5 MG TAB PO PRN ×2 (01:29→19:41)
[2018-03-13] MEDS: CARBIDOPA/LEVODOPA 25 MG/100 MG TAB PO SCH ×4 (06:22→19:03)
[2018-03-13] MEDS: ENTACAPONE 200 MG TAB PO SCH ×4 (06:23→19:41)
[2018-03-13] MEDS: ACETAMINOPHEN 325 MG TAB PO PRN (06:29)
[2018-03-13] MEDS: SENNOSIDES/DOCUSATE SODIUM TAB PO SCH ×2 (09:23→19:43)
[2018-03-13] MEDS: FAMOTIDINE 20 MG TAB PO SCH ×2 (09:23→19:43)
[2018-03-13] MEDS: ENOXAPARIN 40 MG/0.4 ML SYR SC SCH (09:23)
[2018-03-13] MEDS: TAMSULOSIN HCL 0.4 MG CAP PO SCH (09:24)
[2018-03-13] MEDS: SELEGILINE HCL 5 MG CAP PO SCH (09:24)
[2018-03-13] MEDS ORDERED: LIDOCAINE 4%/MENTHOL 1% PATCH TD SCH (11:00)
--- NOTE | 2018-03-13 11:09 | HOSPPROG ---
Hospitalist Progress Note Assessment/Plan: Mr Laura is a 72 yo male with h/o Parkinson's dz, poor mobility, admitted from long term after choking event and respiratory arrest. * Respiratory arrest due food aspiration s/p Heimlich * PEA arrest s/p CPR - due to respiratory arrest * Possible anoxic encephalopathy - nothing acute on head CT 03/03, mentation improved * Acute respiratory failure - had been intubated -resolved, needs O2 intermittent -duonebs * Aspiration PNA -received full treatment w Unasyn * Parkinson's -cont Sinemet -resumed entacapone having difficulty w movement, had been on hold due to (25 % can have agitation, which had been significant issue for him) -baseline he uses a wheelchair * Metabolic encephalopathy - post arrest, due to PNA, suspect some baseline cognitive deficits with parkinsons hx -back to baseline * Agitation - had been on Precedex -calm since I've been taking care of him -defer anti-psychotics- zyprexa could worsen motor symptoms of Parkinson with dopamine vicenta effects * Dysphagia - improved, cleared by speech for po intake * Bloody emesis -Pepcid -non further * Rib fractures -due to CPR -pain from this; added Lidoderm patches * Left arm pain - none further * DVT PPLX - Lovenox * Dispo - cont inpt, CM following. No longer needs to return to the long term. Disposition is difficult. Tiffany Vogel to evaluated Subjective: Liban has some rib pain but otherwise feels fine Objective: Vital Signs Temp Pulse Resp BP Pulse Ox 36.7 C 74 16 149/87 H 96 03/13/18 07:54 03/13/18 07:54 03/13/18 07:54 03/13/18 07:54 03/13/18 07:54 Laboratory Results 03/09/18 09:05 03/12/18 04:50 03/12/18 03/13/18 03/14/18 05:59 05:59 05:59 Intake Total 940 590 Output Total 820 425 Balance 120 165 - Physical Exam Constitutional: chronically ill appearing, uncomfortable Eyes: PERRL Ears, Nose, Mouth, Throat: hearing normal Respiratory: no respiratory distress Skin: warm Musculoskeletal: generalized weakness Neurologic: AAOx3 Psychiatric: interacting appropriately ICD10 Worksheet Patient Problems: Problems Problem Status Onset Airway obstruction due to foreign body Acute Aggressive behavior Acute Hand abrasion Acute Parkinson disease Acute Parkinson's disease dementia Acute Scalp abrasion Acute
--- NOTE | 2018-03-13 15:55 | ASMTCMCOM ---
CM Note CM Note Notes: 03/13/2018 Case Management Note Phone call to officer Brent inquiring re: pt wheelchair. Officer Brent and partner contacted [facility]. Delivered wheel chair to case management. Case Management put wheelchair in pt room. Pt is using wheelchair in the hallway. Date Signed: 03/13/2018 03:55 PM Electronically Signed By:Sury De Leon RN
[2018-03-13 18:48] VITALS: BP 100/58
[2018-03-13] MEDS: MELATONIN 3 MG TAB PO SCH ×2 (19:39→19:40)
[2018-03-13] MEDS ORDERED: PATCH REMOVAL 1 EA PATCH TD SCH (21:00)
--- NOTE | 2018-03-13 23:26 | HOSPPROG ---
Hospitalist Progress Note Assessment/Plan: XC: Patient was violent with nursing staff this evening. As a result, police will take him back to intermediate. Per review of the chart, he has no further active medical needs at this time. Objective: Vital Signs Temp Pulse Resp BP Pulse Ox 36.3 C 74 18 100/58 L 96 03/13/18 16:00 03/13/18 16:00 03/13/18 16:00 03/13/18 18:47 03/13/18 16:00 Laboratory Results 03/09/18 09:05 03/12/18 04:50 03/12/18 03/13/18 03/14/18 05:59 05:59 05:59 Intake Total 940 590 150 Output Total 820 425 Balance 120 165 150 ICD10 Worksheet Patient Problems: Problems Problem Status Onset Parkinson disease Acute Aggressive behavior Acute Hand abrasion Acute Parkinson's disease dementia Acute Scalp abrasion Acute Airway obstruction due to foreign body Acute
--- NOTE | 2018-03-14 10:26 | GDS ---
DISCHARGE DIAGNOSES: 1. Respiratory arrest due to aspiration after the Heimlich. 2. Pulseless electrical activity arrest, status post cardiopulmonary resuscitation. 3. Anoxic encephalopathy. 4. Acute respiratory failure. 5. Aspiration pneumonia. 6. Parkinson's. 7. Metabolic encephalopathy. 8. Agitation. 9. Dysphagia. 10. Bloody emesis. 11. Rib fractures. 12. Left arm pain. CONSULTATIONS: Dr. Jossue Barroso. HISTORY: Briefly, the patient is a 72-year-old gentleman with failure to thrive, homelessness, and P arkinson disease. He was brought to the emergency room on March 03 because he was unresponsive an d found by EMS. At that time, it was noted he was choking on a steak. The steak was able to be disl odged by EMT prior to arrival, but upon arrival to the ER, the patient was unresponsive and not prote cting his airway. He was urgently intubated in the ER and was admitted to the intensive care where naomi weiss was treated for aspiration pneumonia. He slowly improved. Eventually, he was transferred to the [facility] floor in stable condition. He was subsequently discharged on the evening of March 13 [facility] se he was violent to the nursing staff. At this time, he is in shelter. HOSPITAL COURSE: 1. Respiratory arrest. This was due to aspiration. This is status post a Heimlich. 2. PEA arrest, status post CPR. 3. Anoxic encephalopathy. A CT of his head was performed. His mentation improved throughout his st ay. 4. Acute respiratory failure. He has been stable overall on room air. 5. Aspiration pneumonia. He received full treatment with Unasyn. 6. Parkinson's. He is on Sinemet and entacapone. 7. Metabolic encephalopathy. This was due to pneumonia and arrest. He has some baseline cognitive deficits due to his Parkinson's. He is back to his baseline. 8. Agitation. This had overall resolved. We had deferred antipsychotics because the Zyprexa could worsen his motor symptoms. 9. Dysphagia, resolved. 10. Bloody emesis, resolved. 11. Rib fractures. This is due to CPR. 12. Left arm pain. None further. DISCHARGE CONDITION: Stable. Blood pressure at the time of discharge was 100/58, heart rate of 74, respiratory rate of 18. O2 saturation on 2 L is 96%, temperature 36.3 Celsius. DISCHARGE MEDICATIONS: Per the shelter. /[id number]/MODL
--- NOTE | 2018-03-14 13:35 | ASDISCHSUM ---
Discharge Information Plan Status:Homeless/Fpc Medically Cleared to Leave: Discharge Date:03/13/2018 11:34 PM CM D/C Disposition:Law Enforcement/Court/Mcc ADT D/C Disposition:Law Enforcement/Court/Mcc Projected Discharge Date:03/13/2018 11:00 AM Transportation at D/C:Law Enforcement/Police Discharge Delay Reason: Follow-Up Date:03/13/2018 11:00 AM Discharge Slot: Final Diagnosis:Acute hypoxic respiratory failure-choked on meat Placement Information Referral Type:*Group Home/SNF Referral ID:[id number] Provider Name: Address 1: Phone Number: Address 2: Fax Number: City: Selection Factors: State: Patient Contact Information Contact Name:ROMANA Relationship:Friend Address: Work Phone: City: [facility] Phone: [facility] Code: Email: Financial Information Financial Class:Medicare Primary Plan Desc:MEDICARE INPATIENT Primary Plan Number:[id number] Secondary Plan Desc:MEDICAID [place] Secondary Plan Number:[id number] Assessment Information LACE LACE Acuity / Level of Answers: Yes Care: Did the patient have an inpatient admission? Comorbidities - select Answers: History of falls all that apply Opioid dependence / Chronic pain Other Notes: Parkinson's disease # of Emergency department Answers: 12+ visits in the last 6 months Social determinants Answers: History of substance abuse (ETOH, street drugs, prescription drugs, etc.) Homelessness (street, senior living) Score: 23 Date Signed: 03/04/2018 08:18 AM Electronically Signed By:Rosmery Cruz [facility] CM Progress Note CM Note CM Note Notes: 72yo male admitted from the senior care after choking on meat- acute hypoxic respiratory failure. He has a Hx of Parkinson's, Hypotension, Chronic pain, Homelessness, Personality diso. According to past notes, patient has been difficult to place in SNF's and he has preferred to return to the streets. Patient presently on the vent. Past Ethics notes reflect that he would prefer to have Nathalia Brown [phone] be his medical decision maker. CM left a message for Nathalia. Patient is presently and inmate. trying to release him from senior care on a [place] [employer]. CM to follow. Date Signed: 03/04/2018 11:35 AM Electronically Signed By:Rebeka Anderson LCSW [facility] Progress Note CM Note CM Note Notes: [facility] called to give this CM another possible name for Med Proxy: Olga Oliver, . This CM left a message with this #. The senior care reports that they assisted patient in reapplying for Medicaid and that he should be Medicaid "pending" at this time. José Miguel Funes MD was here for Ethics today and said that he could step in as a physician Proxy if needed. May need an Order for Physician Proxy. Date Signed: 03/04/2018 03:33 PM Electronically Signed By:Rebeka Anderson LCSW [facility] JALEESA Progress Note CM Note CM Note Notes: Spoke with Jacqueline, patient's friiend who he named for possible proxy. She is unable to serve as proxy for patient until after the first of the year. Per CM report Nathalia said no to serving as proxy. Spoke with Ethics to request they review for MD proxy for this hospitalization for patient. Ethics will get in touch with Dr. Funes and let us know. CM will follow. Date Signed: 03/05/2018 03:21 PM Electronically Signed By:Porsha Harris LCSW [facility] Progress Note CM Note CM Note Notes: Ethics called back to say Dr. Funes will serve as MD proxy if the patient becomes non decisional again. Patient was extubated yesterday and is currently unable to communicate. If there is a need after hours page the search engine marketing specialist and request Dr. Funes with Ethics. CM will follow. Date Signed: 03/05/2018 04:29 PM Electronically Signed By:Porsha Harris LCSW [facility] Progress Note CM Note CM Note Notes: Discussed pt in rounds. Pt admitted for aspiration and cardiac arrest from the senior care. Pt intubated and non-decisional for a time at which time Ethics called to say Dr. Funes will serve as MD proxy if the patient becomes non decisional again. Patient was extubated and is currently able to communicate. If there is a need after hours page the search engine marketing specialist and request Dr. Funes with Ethics. Pt likely to discharge to senior care. CM will follow. Date Signed: 03/08/2018 05:40 PM Electronically Signed By:Anastasia Le [facility] CM Progress Note CM Note CM Note Notes: Spoke with Lorraine with Kevin so she can follow up on patient's Medicaid application. The senior care reported it was pending. Lorraine will get back to case management when she has obtained a release and checked with Medicaid. Patient is doing better today and his mentation has improved. CM will follow. Date Signed: 03/10/2018 11:47 AM Electronically Signed By:Porsha Harris LCSW [facility] CM Progress Note CM Note CM Note Notes: The senior care has released the patient and as a result patient's discharge plan is no longer return to senior care. An email inquiry has been sent to the [facility] to see if patient is allowed to return there at this time. Patient has no family. Case will be escalated to Oliva Lopez, Plant Maintenance Manager, since it will likely be a difficult placement. CM will follow. Date Signed: 03/11/2018 09:41 AM Electronically Signed By:Porsha Harris LCSW [facility] CM Progress Note CM Note CM Note Notes: Case referred to [facility] to follow in the community. CM will follow. Date Signed: 03/11/2018 10:43 AM Electronically Signed By:Porsha Harris LCSW [facility] CM Progress Note CM Note CM Note Notes: Pt does not need to return to senior care, looking for placement but may prove difficult d/t pt's past behaviors and time in senior care. DC Plan: TBD Date Signed: 03/12/2018 02:21 PM Electronically Signed By:Tania Fitch RN [facility] CM Progress Note CM Note CM Note Notes: 03/13/2018 Case Management Note Phone call to officer Brent inquiring re: pt wheelchair. Officer Brent and partner contacted [facility]. Delivered wheel chair to case management. Case Management put wheelchair in pt room. Pt is using wheelchair in the hallway. Date Signed: 03/13/2018 03:55 PM Electronically Signed By:Sury De Leon RN Intervention Information
== END 2018-03-13 23:34 | DRG 208 ==
LOC: EDUNIT# → F2N 22:39 → F3E 03-09 14:49
PROVIDERS: ADMIT Internal Medicine; ATTEND Internal Medicine
PROC: 5A1935Z Respiratory Ventilation, Less than 24 Consecutive Hours (ICD-10-PCS; principal; 2018-03-03)
PROC: 0BH17EZ Insertion of Endotracheal Airway into Trachea, Via Natural or Artificial Opening (ICD-10-PCS; principal; 2018-03-03)
PROC: 0BJL8ZZ Inspection of Left Lung, Via Natural or Artificial Opening Endoscopic (ICD-10-PCS; 2018-03-04)
PROC: 0BJK8ZZ Inspection of Right Lung, Via Natural or Artificial Opening Endoscopic (ICD-10-PCS; 2018-03-04)
DX: R09.2 Respiratory arrest (principal); J69.0 Pneumonitis due to inhalation of food and vomit; G93.41 Metabolic encephalopathy; G93.1 Anoxic brain damage, not elsewhere classified; S22.41XA Multiple fractures of ribs, right side, initial encounter for closed fracture; T17.928A Food in respiratory tract, part unspecified causing other injury, initial encounter; G20 Parkinson's disease; R45.1 Restlessness and agitation; R13.10 Dysphagia, unspecified; Y92.148 Other place in prison as the place of occurrence of the external cause
CPT/HCPCS: 82435-PO; 82565-PO; 82947-PO; 84132-PO; 84295-PO; 84484-ER; 84520-PO; 85014-PO; 92526-GN; 92610-GN; 96365; 97116-GP; 97162-GP; 97166-GO; 97530-GO; 97530-GP; 97535-GO; G0515-GO; G8978-GP-CM; G8979-GP-CK; G8987-GO-CM; G8988-GO-CK; G8996-GN-CJ; G8997-GN-CI; J0295; J0330; J0360; J1650; J2060; J2250; J2704; J3010